=== PATIENT | female | born 1995 | race Caucasian/White ===

== ENCOUNTER 2019-09-05 11:49 | Emergency (ER) | payer SELFPAY ==
[2019-09-05 11:58] VITALS: BP 123/86; PULSE 91; RESP 20; TEMP 37.2; O2SAT 97; BMI 21.4
--- NOTE | 2019-09-05 12:04 | W.ED.HEATRA ---
Documented by User: RYANN Morales 09/05/19 13:48 HPI - Head Injury General: Chief complaint: Head Injury Stated complaint: HEAD LAC Time Seen by Provider: 09/05/19 12:04 History of Present Illness: HPI Narrative: Patient is a 24-year-old female comes in with head injury. Patient states she was standing on her bed and the ceiling fan going full speed hit her head. She denies any loss of consciousness but she did have bleeding. She does state she felt nauseous right afterwards and felt a little dizzy and lightheaded. Currently in the ED, she does not have any nausea. She started as well as mild headache. Denies any fever, chills, vomiting, abdominal pain, hematuria, dysuria, diarrhea, constipation, chest pain, shortness of breath, numbness or tingling to extremities, weakness to extremities. Review of Systems General: Reports: 10 or more systems reviewed and unremarkable except in HPI and below PFSH ED PFSH: Social History Smoking and tobacco status: never smoked Female Reproductive History: Date of last menstrual period: 09/05/19 Physical Exam Narrative: EXAM NARRATIVE: Patient is a 24-year-old female in no acute distress or respiratory distress. She has some mild head pain due to laceration. Const: COMMON NORMALS: oriented x3 HENMT: COMMON NORMALS: normocephalic HEAD & SCALP: normocephalic, abrasion (small) and laceration (0.5cm superficial laceration on R. Parietal. Bleeding stopped.) MOUTH: oral and palatal mucosa normal THROAT: posterior oropharynx normal and uvula midline Neck/C-Spine: COMMON NORMALS: supple GENERAL: Yes normal visual inspection Resp: COMMON NORMALS: normal respiratory effort, no retractions, no use of accessory muscles and clear to auscultation bilaterally AUSCULTATION: clear to auscultation bilaterally Cardio: COMMON NORMALS: regular rate, regular rhythm, S1 normal heart sound, S2 normal heart sound, no gallops, no clicks, no murmurs and peripheral pulses 2+ throughout RATE: regular rate RHYTHM: regular rhythm HEART SOUNDS: S1 normal and S2 normal PERIPHERAL PULSES: pulses 2+ throughout GI: COMMON NORMALS: normal to inspection, nondistended, normoactive bowel sounds, soft to palpation, non-tender and no masses PALPATION: Yes soft : COMMON NORMALS: Yes no CVA tenderness BLADDER/KIDNEY EXAM: Yes no CVA tenderness Back/Pelvis: COMMON NORMALS: no CVA tenderness Extremity: COMMON NORMALS: normal to inspection Neuro: COMMON NORMALS: oriented x3, CN's II-XII intact bilaterally, moves all extremities, no focal motor deficits and no sensory deficits noted SENSORY EXAM: Yes extremities (intact) MOTOR EXAM: strength 5/5 throughout Skin: COMMON NORMALS: no rashes or lesions noted GENERAL SKIN EXAM: no rashes or lesions noted Procedures Laceration Laceration 1: Site: scalp Side (If applicable): right Size (cm): 0.5 Description: linear and clean Depth: simple, single layer (small and superficial) Pre-repair: irrigated extensively (Normal saline) Size (cm): other (Dermabond) Course Vital Signs: Vital signs: Vital Signs Temperature 98.9 F 09/05/19 11:58 Pulse Rate 79 09/05/19 13:34 Respiratory Rate 18 09/05/19 13:34 Blood Pressure 101/66 09/05/19 13:34 Pulse Oximetry 99 09/05/19 13:34 MDM - Head Injury Imaging Data^: CT Head: Attestation: I personally reviewed and interpreted this imaging study as follows: Radiologist's impression: [address] [address] [address] Scan Report Signed Patient: Diana Kelley Unit #: [id number] : 1995 Age/Sex: 24 / F ADM Date: 09/05/19 Loc: ER Room/Bed: Attending Dr: Ordering Provider/Ordering MD: Franco Warner Date of Service: 09/05/19 Procedure(s): CT head wo con* [id number] Accession Number(s): [id number] Report Number: [id number] WS: [id number] CT scan of the head, 09/05/2019 Clinical Data: head injury Comparison: CT head, 09/14/2010. DLP: 740.[address] scans at [facility] use at least one of these dose optimization techniques: automated exposure control; mA and/or kV adjustment per patient size (includes targeted exams where dose is matched to clinical indication); or iterative reconstruction. Findings: The ventricular system is normal without shift. No recent infarct or hemorrhage is seen. There are no abnormal intracerebral masses. The cerebellum and brainstem are not remarkable. Bony windows of the skull and skull base show no fractures or erosions. The mastoid air cells, internal auditory canals, sella turcica, intraorbital contents, and paranasal sinuses are u nremarkable. CT/CT head wo con* [id number] Impression: Negative CT scan of the head Dictated By: Ana Padilla MD Signed By: Ana Padilla MD Signed Date/Time: 09/05/19 1318 DD/ 15 Discharge Plan Discharge Patient Disposition: Home, Self-Care Clinical Impression: Laceration, Minor head trauma Condition: Stable Prescriptions: No Action No Known Home Medications RF: 0 Discharge Orders: Discharge Order (Routine); Ordered 09/05/19 Ordered By: Franco Warner Referrals: Maureen Link MD [Primary Care Provider] - Darin Lane MD [Family Provider] - Discharge Diet: Regular Discharge Activity: Resume usual activity Patient Instructions: Laceration (ED) Activity Restrictions/Additional Instructions: Do not wash hair for 24 hours to allow for head wound to close up. After 24 hours she can wash hair. Take Tylenol or ibuprofen for headache. He complains ice on her head as well as needed for any soreness or swelling. Follow-up with your PCP in 7 days for reevaluation. Discharge Date/Time: 09/05/19 13:34 Coding Level of Care Code ED Wire Twisting Machine Operator for Chg Fwd Exam Problem Focused Documented by User: Victoriano Vivas DO 09/06/19 13:36 HPI - Head Injury General: Chief complaint: Head Injury Stated complaint: HEAD LAC Time Seen by Provider: 09/05/19 12:04 PFSH ED PFSH: Social History Smoking and tobacco status: never smoked Course ED course: Patient seen in conjunction with midlevel chart reviewed agree with assessment plan and disposition Vital Signs: Vital signs: Vital Signs Temperature 98.9 F 09/05/19 11:58 Pulse Rate 79 09/05/19 13:34 Respiratory Rate 18 09/05/19 13:34 Blood Pressure 101/66 09/05/19 13:34 Pulse Oximetry 99 09/05/19 13:34 Discharge Plan Discharge Patient Disposition: Home, Self-Care Clinical Impression: Laceration, Minor head trauma Condition: Stable Prescriptions: No Action No Known Home Medications RF: 0 Discharge Orders: Discharge Order (Routine); Ordered 09/05/19 Ordered By: Franco Warner Referrals: Maureen Link MD [Primary Care Provider] - Darin Lane MD [Family Provider] - Discharge Diet: Regular Discharge Activity: Resume usual activity Patient Instructions: Laceration (ED) Activity Restrictions/Additional Instructions: Do not wash hair for 24 hours to allow for head wound to close up. After 24 hours she can wash hair. Take Tylenol or ibuprofen for headache. He complains ice on her head as well as needed for any soreness or swelling. Follow-up with your PCP in 7 days for reevaluation. Discharge Date/Time: 09/05/19 13:34 Coding Level of Care Code ED Wire Twisting Machine Operator for Kevin Parra Exam Problem Focused
--- NOTE | 2019-09-05 12:20 | CT_ITS ---
WS: [id number] CT scan of the head, 09/05/2019 Clinical Data: head injury Comparison: CT head, 09/14/2010. DLP: 740.[address] scans at [facility] use at least one of these dose optimization techniques: automat ed exposure control; mA and/or kV adjustment per patient size (includes targeted exams where dose is matched to clinical indication); or iterative reconstruction. Findings: The ventricular system is normal without shift. No recent infarct or hemorrhage is seen. There are no abnormal intracerebral masses. The cerebellum and brainstem are not remarkable. Bony windows of the skull and skull base show no fractures or erosions. The mastoid air cells, advisory internship al auditory canals, sella turcica, intraorbital contents, and paranasal sinuses are unremarkable. CT/CT head wo con* [id number] Impression: Negative CT scan of the head
[2019-09-05] MEDS: acetaminophen 500 mg Tablet PO (12:26)
[2019-09-05 13:34] VITALS: BP 101/66; PULSE 79; RESP 18; O2SAT 99
== END 2019-09-05 13:34 | disposition home or self-care (01) ==
PROVIDERS: Emergency Provider Physician Assistant; Family Provider Family Medicine; PCP Pediatrics Adolescent Medicine
DX: S01.01XA Laceration without foreign body of scalp, initial encounter (principal); W22.8XXA Striking against or struck by other objects, initial encounter; Y92.003 Bedroom of unspecified non-institutional (private) residence as the place of occurrence of the external cause
CPT/HCPCS: 70450; 99281; 99283; A9270

== ENCOUNTER 2019-09-19 08:20 | Emergency (ER) | payer SELFPAY ==
[2019-09-19 08:26] VITALS: BP 131/76; PULSE 82; RESP 16; TEMP 36.6; O2SAT 97; BMI 21.4
--- NOTE | 2019-09-19 08:27 | ED_ITS ---
HPI - URI/Sore Throat General: Chief Complaint: General Medical Stated Complaint: H/A CONGESTION Time Seen by Provider: 09/19/19 08:27 Source: patient Mode of arrival: ambulatory Limitations: no limitations History of Present Illness: HPI Narrative: Patient comes in today with complaints of sinus pain and pressure. Patient reports symptoms since the . Patient appears mildly unwell. Patient appears in no acute distress. Patient appears in mild pain. MD elicited complaint: nasal congestion and sinus pain Associated symptoms: Reports ear or mastoid pain and nasal congestion Review of Systems General: Reports: 10 or more systems reviewed and unremarkable except in HPI and below ENMT: Reports: ear pain and nasal congestion PFSH ED PFSH: Social History Smoking and tobacco status: never smoked Female Reproductive History: Date of last menstrual period: 09/05/19 Physical Exam Const: COMMON NORMALS: no apparent distress and oriented x3 GENERAL APPEARANCE: cooperative HENMT: COMMON NORMALS: normocephalic, external ears normal, EAC's normal and external nose normal HEAD & SCALP: normal to inspection and normocephalic FACE & SINUS: facial tenderness (maxillary sinus) NOSE: external nose normal GENERAL EAR: hearing not grossly impaired EXTERNAL EAR: Yes external ears normal EXTERNAL AUDITORY CANAL: EAC's normal TYMPANIC MEMBRANE: TM abnormal TM laterality: right Details: erythematous MOUTH: oral and palatal mucosa normal THROAT: posterior oropharynx abnormal erythema Eye: COMMON NORMALS: PERRL and EOMs intact bilaterally PUPIL: Yes PERRL Neck/C-Spine: COMMON NORMALS: full ROM and no lymphadenopathy Lymph: LYMPHATIC: no lymphedema noted Chest: COMMONS NORMALS: inspection of chest normal and palpation of chest n ormal Resp: COMMON NORMALS: normal respiratory effort and clear to auscultation bilaterally AUSCULTATION: clear to auscultation bilaterally Cardio: COMMON NORMALS: regular rate and regular rhythm RATE: regular rate RHYTHM: regular rhythm GI: COMMON NORMALS: normal to inspection, nondistended, normoactive bowel sounds and non-tender : COMMON NORMALS: Yes no CVA tenderness BLADDER/KIDNEY EXAM: Yes no CVA tenderness Back/Pelvis: COMMON NORMALS: no CVA tenderness and thoracic and lumbar spine normal to inspection Extremity: COMMON NORMALS: normal to inspection GENERAL: No edema Neuro: COMMON NORMALS: oriented x3, moves all extremities and no focal motor deficits Psych: COMMON NORMALS: mental status grossly normal and cooperative Skin: COMMON NORMALS: no rashes or lesions noted GENERAL SKIN EXAM: no rashes or lesions noted Course Vital Signs: Vital signs: Vital Signs Temperature 97.9 F 09/19/19 08:26 Pulse Rate 82 09/19/19 08:26 Respiratory Rate 16 09/19/19 08:26 Blood Pressure 131/76 09/19/19 08:26 Pulse Oximetry 97 09/19/19 08:26 MDM - URI/Sore Throat MDM Narrative: Medical decision making narrative: Patient comes in today with complaints of sinus pain and pressure for 2 weeks. On exam patient has some maxillary sinus tenderness. Left tympanic membrane is erythematous and dull. Skin is warm and dry color is pink. Abdomen soft nontender. Lungs are clear to auscultation. Differential diagnosis includes otitis media, sinusitis, rhinosinusitis, pharyngitis, influenza. Reviewed exam with patient recommended treatment for rhinosinusitis. Encourage fluids rest and follow-up with primary care. Patient reports understanding and agreed to plan. Discharge Plan Discharge Patient Disposition: Home, Self-Care Clinical Impression: Acute rhinosinusitis Condition: Stable Prescriptions: New amoxicillin 500 mg capsule 500 mg PO Q8H Qty: 21 RF: 0 fluticasone propionate 50 mcg/actuation spray,suspension 1 spray INTRANASAL BID Qty: 9.9 RF: 0 Mucinex D 60-600 mg tablet extended release 12 hr 1 tab PO Q12H PRN (Reason: sinus symptoms) Qty: 14 RF: 0 No Action Emergen-C 1,000 mg Powder Effervescent In Packet 1,000 mg PO DAILY RF: 0 Discharge Orders: Discharge Order (Routine); Ordered 09/19/19 Ordered By: Bebo Bahena Referrals: Maureen Link MD [Primary Care Provider] - Darin Lane MD [Family Provider] - Discharge Diet: Usual diet Discharge Activity: Increase activity as tolerated Patient Instructions: Acute Bacterial Rhinosinusitis (ED) Activity Restrictions/Additional Instructions: Drink plenty of fluids Antibiotics as directed Medications as directed Follow-up with primary care as needed Coding Level of Care Code ED Veterinary Surgery Technician for Chg Fwd Exam Comprehensive
== END 2019-09-19 08:47 | disposition home or self-care (01) ==
PROVIDERS: Emergency Provider Nurse Practitioner Family; Family Provider Family Medicine; PCP Pediatrics Adolescent Medicine
DX: J01.90 Acute sinusitis, unspecified (principal)
CPT/HCPCS: 99281; 99282

== ENCOUNTER 2019-11-30 13:22 | Emergency (ER) | payer OTHER, SELFPAY ==
[2019-11-30 13:28] VITALS: BP 116/77; PULSE 96; RESP 16; TEMP 36.5; O2SAT 97; BMI 21.4
--- NOTE | 2019-11-30 13:34 | XR_ITS ---
WS: [id number] XR foot RT min 3V* [id number] REASON FOR EXAM: crush injury FINDINGS: The phalanges, metatarsals, tarsals all appear to be normal. No definite fractures are seen . The calcaneus show no definite fractures and the plantar surface was normal. XR/XR foot RT min 3V* [id number] IMPRESSION: Negative right foot for fractures.
--- NOTE | 2019-11-30 13:43 | ED_ITS ---
HPI - Extremity Problem General: Chief complaint: Extremity Injury, Lower Stated complaint: foot pain Time Seen by Provider: 11/30/19 13:34 History of Present Illness: HPI Narrative: Patient shall ran over her right ankle with a skate yesterday. Patient complains of pain to the lateral aspect of the right ankle. MD Complaint: joint paint Onset (ago): day(s) (1) Pain Consistency: constant Location: right, lower extremity and other (Ankle) Radiation: distal Relieving factors: nothing Exacerbating factors: range of motion and weight bearing Associated symptoms: Reports no associated symptoms Review of Systems Musc: Reports: joint pain and limited range of motion PFSH ED PFSH: Social History Smoking and tobacco status: current some day smoker Female Reproductive History: Date of last menstrual period: 09/05/19 Physical Exam Extremity: RIGHT LOWER EXTREMITY: Yes ankle joint (No grossly apparent swelling, bruising) Course Vital Signs: Vital signs: Vital Signs Temperature 97.7 F 11/30/19 13:28 Pulse Rate 96 11/30/19 13:28 Respiratory Rate 16 11/30/19 13:28 Blood Pressure 116/77 11/30/19 13:28 Pulse Oximetry 97 11/30/19 13:28 Discharge Plan Discharge Patient Disposition: Home, Self-Care Clinical Impression: Ankle sprain and strain Condition: Stable Prescriptions: New Tylenol-Codeine #3 300-30 mg tablet 1 tab PO Q6H PRN (Reason: pain) Qty: 10 RF: 0 No Action amoxicillin 500 mg capsule 500 mg PO Q8H Qty: 21 RF: 0 Emergen-C 1,000 mg Powder Effervescent In Packet 1,000 mg PO DAILY RF: 0 fluticasone propionate 50 mcg/actuation spray,suspension 1 spray INTRANASAL BID Qty: 9.9 RF: 0 Mucinex D 60-600 mg tablet extended release 12 hr 1 tab PO Q12H PRN (Reason: sinus symptoms) Qty: 14 RF: 0 Discharge Orders: Discharge Order (Routine); Ordered 11/30/19 Ordered By: Shadi Cm Referrals: Darin Lane MD [Primary Care Provider] - Coding Level of Care Code ED Nut Sorter Operator for Chg Fwd Exam Problem Focused
--- NOTE | 2019-11-30 13:55 | XR_ITS ---
WS: [id number] XR ankle RT 2V [id number] REASON FOR EXAM: crush injury FINDINGS: 2 views of the right ankle show normal ankle mortise. No fractures of the talus, tibia, are fibula. In the lateral projection the posterior shelf of the tibia is intact. XR/XR ankle RT 2V [id number] IMPRESSION: Negative right ankle for fractures.
[2019-11-30 14:56] VITALS: RESP 16
== END 2019-11-30 14:58 | disposition home or self-care (01) ==
PROVIDERS: Emergency Provider Family Medicine; PCP Family Medicine
DX: S93.401A Sprain of unspecified ligament of right ankle, initial encounter (principal); S96.911A Strain of unspecified muscle and tendon at ankle and foot level, right foot, initial encounter; W22.8XXA Striking against or struck by other objects, initial encounter; F17.210 Nicotine dependence, cigarettes, uncomplicated
CPT/HCPCS: 12345; 73600; 73630; 99281; 99283

== ENCOUNTER 2020-01-21 12:45 | Emergency (ER) | payer OTHER, SELFPAY ==
[2020-01-21 12:58] VITALS: BP 121/81; PULSE 111; RESP 18; TEMP 36.8; O2SAT 97; BMI 22.1
--- NOTE | 2020-01-21 13:03 | ED_ITS ---
HPI - Female Genitourinary General: Chief complaint: Urogenital-Female Stated complaint: abd pain, burning with urination Time Seen by Provider: 01/21/20 12:58 Source: patient Mode of arrival: ambulatory Limitations: no limitations History of Present Illness: HPI Narrative: Patient is a 24-year-old female who presents to ED today with complaint of dysuria, urinary urgency and frequency over the past few days. 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 States she does not have pain at any other time of the day and can otherwise eat normally. No flank pain. Patient is not having any nausea, vomiting, diarrhea. She denies vaginal discharge or vaginal odor or concern for STDs. MD elicited complaint: dysuria and UTI Onset (ago): day(s) Consistency: intermittent Vaginal discharge: none Vaginal bleeding: none Urinary symptoms: Difficulty Urinating, Dysuria, Frequency and Urgency Exacerbating factors: urination Relieving factors: none Associated symptoms: Reports abdominal pain; Deny nausea or vaginal discharge Treatment prior to arrival: none Patient : No Date of Last Menstrual Period: 09/05/19 Review of Systems Const: Denies: fever(s) or chills GI: Reports: abdominal pain; Denies: nausea, vomiting, hematemesis, coffee ground emesis, heartburn, early satiety, diarrhea, constipation, change in bowel habits, pain on defecation, hematochezia or white/light colored stool : Reports: dysuria, urinary frequency and urinary urgency; Denies: flank pain, urinary incontinence, hematuria, genital lesions, genital pruritis, vaginal odor, vaginal bleeding or vaginal discharge Musc: Denies: back pain Skin/Breast: Denies: rash or new lesions PFS ED PFSH: Social History Smoking and tobacco status: current some day smoker Female Reproductive History: Date of last menstrual period: 09/05/19 Physical Exam Const: COMMON NORMALS: no acute distress, average body habitus, patient oriented x3, no limitations, healthy appearing, alert and well nourished Resp: COMMON NORMALS: normal respiratory effort and clear to auscultation bilaterally AUSCULTATION: clear to auscultation bilaterally Cardio: COMMON NORMALS: regular rate and regular rhythm RATE: regular rate RHYTHM: regular rhythm GI: COMMON NORMALS: Normal to inspection, nondistended, normoactive bowel sounds present, Soft to palpation, No hepatosplenomegaly present and no masses PALPATION: Yes Soft to palpation, Yes Tenderness to palpation present (GI) (mild diffusely-non surgical abdomen ) and Yes No hepatosplenomegaly present : COMMON NORMALS: Yes no CVA tenderness BLADDER/KIDNEY EXAM: Yes no CVA tenderness Back/Pelvis: COMMON NORMALS: no CVA tenderness Neuro: COMMON NORMALS: patient oriented x3 SENSORIUM/ORIENTATION: Yes alert Course Vital Signs: Vital signs: Vital Signs Temperature 98.3 F 01/21/20 12:58 Pulse Rate 106 H 01/21/20 13:58 Respiratory Rate 16 01/21/20 13:58 Blood Pressure 104/76 01/21/20 13:58 Pulse Oximetry 98 01/21/20 13:58 MDM - Female Lab Data: Labs: Lab Results 01/21/20 01/21/20 01/21/20 Range/Units 13:00 13:00 13:45 WBC 6.2 (4.0-10.0) 10^3/ uL RBC 5.01 (4.1-5.3) 10^6/u L Hgb 15.4 H (11.5-15.3) g/dL Hct 47.7 H (37.0-47.0) % MCV 95.2 (81-99) fL MCH 30.7 (28.0-34.0) pg MCHC 32.3 (30.0-36.0) g/dL RDW 11.9 L (12.1-15.1) % Plt Count 167 (130-400) 10^3/c mm MPV 12.9 H (7.4-10.4) fL Neut % (Auto) 74.0 % Lymph % (Auto) 19.6 % [place] % (Auto) 4.8 % Eos % (Auto) 0.8 % Baso % (Auto) 0.3 % Neut # (Auto) 4.6 (1.8-7.7) 10^3/u L Lymph # (Auto) 1.2 (0.8-4.8) 10^3/u L [place] # (Auto) 0.3 (0.2-0.9) 10^3/u L Eos # (Auto) 0.1 (0.0-0.8) 10^3/u L Baso # (Auto) 0.0 (0.0-0.1) 10^3/u L Nucleated RBC % (a uto) 0 % Nucleated RBCs # 0.0 /100WBC Sodium (136-145) mmol/L Potassium (3.5-5.1) mmol/L Chloride (98-107) mmol/L Carbon Dioxide (22-29) mmol/L Anion Gap (5-19) BUN (6-20) mg/dL Creatinine (0.5-0.9) mg/dL GFR Calculation (90-130) mL/min Glucose (65-115) mg/dL Calculated Osmolal ity (285-295) mOsm/k g Calcium (8.5-10.5) mg/dL Total Bilirubin (0.15-1.2) mg/dL AST (0-32) U/L ALT (0-33) U/L Alkaline Phosphata se (35-105) IU/L Total Protein (6.6-8.7) g/dL Albumin (3.5-5.2) g/dL Globulin (1.3-4.6) g/dL Lipase (13-60) U/L Urine Color Yellow (Yellow) Urine Appearance Sl cloudy A (CLEAR) Urine pH 5 (5-7) Ur Specific Gravit y 1.025 (1.005-1.030) Urine Protein Neg (Negative) Urine Glucose (UA) Norm (Normal) Urine Ketones Negative (Negative) Urine Blood Neg (Negative) Urine Nitrate Negative (Negative) Urine Bilirubin 1+ H (NEGATIVE) Urine Urobilinogen 1 H (Negative) mg/dL Ur Leukocyte Mary Ann ase 2+ H (Negative) Urine RBC None (0-2) /hpf Urine WBC 25-40 H (0-5) /hpf Ur Squamous Epith Cells 10-15 H (0-5) Amorphous Sediment Not Reportable Urine Bacteria 2+ H (NONE) Urine Mucus 2+ Urine HCG, Qual Negative (Negative) 01/21/20 Range/Units 13:45 WBC (4.0-10.0) 10^3/ uL RBC (4.1-5.3) 10^6/u L Hgb (11.5-15.3) g/dL Hct (37.0-47.0) % MCV (81-99) fL MCH (28.0-34.0) pg MCHC (30.0-36.0) g/dL RDW (12.1-15.1) % Plt Count (130-400) 10^3/c mm MPV (7.4-10.4) fL Neut % (Auto) % Lymph % (Auto) % [place] % (Auto) % Eos % (Auto) % Baso % (Auto) % Neut # (Auto) (1.8-7.7) 10^3/u L Lymph # (Auto) (0.8-4.8) 10^3/u L [place] # (Auto) (0.2-0.9) 10^3/u L Eos # (Auto) (0.0-0.8) 10^3/u L Baso # (Auto) (0.0-0.1) 10^3/u L Nucleated RBC % (a uto) % Nucleated RBCs # /100WBC Sodium 140 (136-145) mmol/L Potassium 4.3 (3.5-5.1) mmol/L Chloride 102 (98-107) mmol/L Carbon Dioxide 24 (22-29) mmol/L Anion Gap 18.3 (5-19) BUN 22 H (6-20) mg/dL Creatinine 0.8 (0.5-0.9) mg/dL GFR Calculation 88.1 L (90-130) mL/min Glucose 82 (65-115) mg/dL Calculated Osmolal ity 286 (285-295) mOsm/k g Calcium 10.4 (8.5-10.5) mg/dL Total Bilirubin 0.6 (0.15-1.2) mg/dL AST 18 (0-32) U/L ALT 13 (0-33) U/L Alkaline Phosphata se 72 (35-105) IU/L Total Protein 7.8 (6.6-8.7) g/dL Albumin 5.2 (3.5-5.2) g/dL Globulin 2.6 (1.3-4.6) g/dL Lipase 39 (13-60) U/L Urine Color (Yellow) Urine Appearance (CLEAR) Urine pH (5-7) Ur Specific Gravit y (1.005-1.030) Urine Protein (Negative) Urine Glucose (UA) (Normal) Urine Ketones (Negative) Urine Blood (Negative) Urine Nitrate (Negative) Urine Bilirubin (NEGATIVE) Urine Urobilinogen (Negative) mg/dL Ur Leukocyte Mary Ann ase (Negative) Urine RBC (0-2) /hpf Urine WBC (0-5) /hpf Ur Squamous Epith Cells (0-5) Amorphous Sediment Urine Bacteria (NONE) Urine Mucus Urine HCG, Qual (Negative) Discharge Plan Discharge Patient Disposition: Home, Self-Care Clinical Impression: Acute cystitis without hematuria Condition: Stable Prescriptions: New sulfamethoxazole-trimethoprim [Bactrim DS] 800-160 mg tablet 1 tab PO BID 7 Days Qty: 14 RF: 0 No Action Probiotic 3 billion cell Capsule 3,000 mmu cells PO DAILY RF: 0 Discharge Orders: Discharge Order (Routine); Ordered 01/21/20 Ordered By: Mary Hernandez Referrals: Darin Lane MD [Primary Care Provider] - Patient Instructions: Urinary Tract Infection in Women (ED) Activity Restrictions/Additional Instructions: Please follow-up with your primary care provider in 3 to 5 days if symptoms do not seem to be improving. You may return to the emergency department for worsening pain, fevers greater than 100.4, vomiting or inability to hold down your antibiotics, or any other concerns you may have. Coding Level of Care Code ED Machine Grainer for Kevin Parra
[2020-01-21 13:32] LABS: Specific Gravity, Urine 1.025 (1.005-1.030); Urine Color Yellow (Yellow); pH Urine 5 (5-7)
[2020-01-21 13:33] LABS: Add Urine Microscopic? YES; Bilirubin Urine 1+ (NEGATIVE); Blood Urine Neg (Negative); Glucose Urine UA Norm (Normal); Ketones Urine Negative (Negative); Leukocyte Esterase Urine 2+ (Negative); Nitrate Urine Negative (Negative); Protein Urine Neg (Negative); Urobilinogen Urine 1 mg/dL (Negative)
[2020-01-21 13:34] LABS: Bacteria Urine 2+; Mucus Urine 2+; WBC Urine 25-40 /hpf (0-5)
[2020-01-21 13:35] LABS: Add Urine Culture? No
[2020-01-21 13:58] VITALS: BP 104/76; PULSE 106; RESP 16; O2SAT 98
[2020-01-21 14:06] LABS: Basophils % 0.3 %; Eosinophils # 0.1 10^3/uL (0.0-0.8); Eosinophils % 0.8 %; Hematocrit 47.7 % (37.0-47.0); Hemoglobin 15.4 g/dL (11.5-15.3); Lymphocytes # 1.2 10^3/uL (0.8-4.8); Lymphocytes % 19.6 %; Mean Corpuscular HGB Conc 32.3 g/dL (30.0-36.0); Mean Corpuscular Hemoglobin 30.7 pg (28.0-34.0); Mean Corpuscular Volume 95.2 fL (81-99); Mean Platelet Volume 12.9 fL (7.4-10.4); Monocytes # 0.3 10^3/uL (0.2-0.9); Monocytes % 4.8 %; Neutrophils # 4.6 10^3/uL (1.8-7.7); Nucleated Red Blood Cells % 0 %; Platelet Count 167 10^3/cmm (130-400); Red Blood Count 5.01 10^6/uL (4.1-5.3); Red Cell Distribution Width 11.9 % (12.1-15.1); White Blood Count 6.2 10^3/uL (4.0-10.0)
[2020-01-21 14:14] LABS: Alanine Aminotransferase 13 U/L (0-33); Albumin Level 5.2 g/dL (3.5-5.2); Alkaline Phosphatase 72 IU/L (35-105); Anion Gap 18.3 (5-19); Aspartate Amino Transferase 18 U/L (0-32); Blood Urea Nitrogen 22 mg/dL (6-20); Calcium 10.4 mg/dL (8.5-10.5); Carbon Dioxide 24 mmol/L (22-29); Chloride 102 mmol/L (98-107); Globulin 2.6 g/dL (1.3-4.6); Glomerular Filtration Rate 88.1 mL/min (90-130); Glucose 82 mg/dL (65-115); Lipase 39 U/L (13-60); Osmolality Calculated 286 mOsm/kg (285-295); Potassium 4.3 mmol/L (3.5-5.1); Sodium 140 mmol/L (136-145); Total Bilirubin 0.6 mg/dL (0.15-1.2); Total Protein 7.8 g/dL (6.6-8.7)
[2020-01-21 14:20] LABS: Slide Review Slide Review Perform
[2020-01-21 14:48] VITALS: BP 120/82; PULSE 92; RESP 18; O2SAT 99
== END 2020-01-21 14:48 | disposition home or self-care (01) ==
PROVIDERS: Emergency Provider Physician Assistant; PCP Family Medicine
DX: N30.00 Acute cystitis without hematuria (principal); F17.210 Nicotine dependence, cigarettes, uncomplicated
CPT/HCPCS: 12345; 36415; 80053; 81001; 81025; 83690; 85025; 99282

== ENCOUNTER 2020-01-26 13:59 | Emergency (ER) | payer OTHER, SELFPAY ==
[2020-01-26 14:11] VITALS: BP 114/70; PULSE 110; RESP 18; TEMP 36.7; O2SAT 96; BMI 21.9
--- NOTE | 2020-01-26 14:34 | XRR_ITS ---
PROCEDURE INFORMATION: Exam: XR Chest, 2 Views Exam date and time: 01/26/2020 3:42 PM Age: 24 years old Clinical indication: Cough TECHNIQUE: Imaging protocol: XR of the chest Views: 2 views. COMPARISON: CR Chest 1 [place] [id number] 04/25/2019 3:07 PM FINDINGS: Lungs: Unremarkable. No consolidation. Pleural space: Unremarkable. No pleural effusion. No pneumothorax. Heart/Mediastinum: Unremarkable. No cardiomegaly. Bones/joints: Unremarkable. XR/XR chest 2V* [id number] IMPRESSION: No acute findings.
--- NOTE | 2020-01-26 14:47 | W.ED.URI ---
HPI - URI/Sore Throat General: Chief Complaint: Upper Respiratory Infection Stated Complaint: sinus problems Time Seen by Provider: 01/26/20 14:47 History of Present Illness: HPI Narrative: 24-year-old female comes in complaining of cough and cold headache that started yesterday. No significant cough. She had a low-grade fever she not really tried any [id number] medications for it at all. She is on Bactrim for a UTI. She got some fullness in her particular her right ear with no drainage. She has not been around anyone that she is known to have been COVID positive, no change in taste. MD elicited complaint: fever Pertinent past history: other (Recently seen for UTI and on Bactrim) Onset (ago): day(s) Consistency: constant Severity: mild Description of mucous: clear and watery Able to tolerate fluids by mouth: Yes Exacerbating factors: nothing Relieving factors: nothing Associated symptoms: Reports no associated symptoms, congestion and nasal congestion; Deny abdominal pain, chills, chest pain, cough, diarrhea, fever(s), nausea or vomiting Treatments prior to arrival: none Review of Systems Const: Denies: fever(s), chills, body aches, change in appetite, fatigue or malaise ENMT: Reports: nasal congestion Card: Denies: chest pain, edema, dyspnea on exertion or orthopnea Resp: Denies: dyspnea, productive cough or non-productive cough GI: Denies: abdominal pain, nausea, vomiting, hematemesis, coffee ground emesis, diarrhea, constipation, bloating, hematochezia or melena : Denies: flank pain, difficulty voiding, dysuria, urinary frequency or urinary urgency Skin/Breast: Denies: rash or pruritus PFSH ED PFSH: Medical History (Updated 01/26/20 @ 16:12 by Victoriano Vivas DO) No significant past medical history Surgical History (Updated 01/26/20 @ 16:12 by Victoriano Vivas DO) H/O oral surgery Social History Smoking and tobacco status: current some day smoker Female Reproductive History: Date of last menstrual period: 09/05/19 Physical Exam Const: COMMON NORMALS: no acute distress GENERAL APPEARANCE: cooperative and comfortable ORIENTATION/CONSCIOUSNESS: Yes awake, Yes oriented to person, Yes oriented to place and Yes oriented to time HENMT: COMMON NORMALS: normocephalic, atraumatic, hearing grossly normal bilaterally, external ears normal, EAC's normal, Normal nasal mucous membranes and turbinates present, moist oral mucous membranes and oropharynx normal HEAD & SCALP: normocephalic and atraumatic NOSE: Normal nasal mucous membranes and turbinates present EXTERNAL EAR: Yes external ears normal EXTERNAL AUDITORY CANAL: EAC's normal OTHER: Moderate amount of serous fluid behind the right TM with no evidence of infection or swelling no purulent fluid Eye: COMMON NORMALS: Equal, round and reactive pupils present, EOMs intact bilaterally, conjunctivae normal and no scleral icterus CONJUNCTIVA: Yes conjunctivae normal PUPIL: Yes Equal, round and reactive pupils present Neck/C-Spine: COMMON NORMALS: full ROM, no lymphadenopathy, supple and no JVD Lymph: LYMPHATIC: no lymphadenopathy noted and no lymphedema noted Resp: COMMON NORMALS: normal respiratory effort, No retractions, No use of accessory muscles and clear to auscultation bilaterally AUSCULTATION: clear to auscultation bilaterally Cardio: COMMON NORMALS: no JVD, regular rate, regular rhythm and No murmurs present (Cardio) RATE: regular rate RHYTHM: regular rhythm GI: COMMON NORMALS: Soft to palpation and No hepatosplenomegaly present AUSCULTATION: Yes normoactive bowel sounds PALPATION: Yes Soft to palpation, No Tenderness to palpation present (GI), No Guarding due to palpation present (GI) and Yes No hepatosplenomegaly present Extremity: COMMON NORMALS: normal to inspection, capillary refill normal, no clubbing, cyanosis or edema, no calf tenderness and no pedal edema Neuro: SENSORIUM/ORIENTATION: Yes oriented to person, Yes oriented to place and Yes oriented to time Skin: COMMON NORMALS: no rashes or lesions noted GENERAL SKIN EXAM: no rashes or lesions noted Course Vital Signs: Vital signs: Vital Signs Temperature 98.1 F 01/26/20 14:11 Pulse Rate 75 01/26/20 15:55 Respiratory Rate 16 01/26/20 15:55 Blood Pressure 114/70 01/26/20 14:11 Pulse Oximetry 98 01/26/20 15:55 MDM - URI/Sore Throat MDM Narrative: Medical decision making narrative: Supportive care pseudoephedrine as needed other [id number]-kkn-[id number]'s medicines as needed discussed results the patient most likely viral upper respiratory infection continue previously prescribed Bactrim for the bladder infection Lab Data: Attestation: I reviewed the patient's lab results. Labs: Lab Results 01/26/20 Range/Units 15:10 Group A Strep Rapi d Negative (Negative) Discharge Plan Discharge Patient Disposition: Home, Self-Care Clinical Impression: Upper respiratory infection Condition: Stable Prescriptions: New pseudoephedrine HCl 30 mg tablet 30 mg PO Q6H PRN (Reason: nasal congestion) Qty: 30 RF: 0 No Action sulfamethoxazole-trimethoprim [Bactrim DS] 800-160 mg tablet 1 tab PO BID 7 Days Qty: 14 RF: 0 Discharge Orders: Discharge Order (Routine); Ordered 01/26/20 Ordered By: Victoriano iVvas Referrals: Darin Lane MD [Primary Care Provider] - Discharge Diet: Advance as tolerated Discharge Activity: Resume usual activity Discharge Date/Time: 01/26/20 15:55 Coding Level of Care Code ED Neurosurgical Physician Assistant for Kevin Parra
[2020-01-26 15:28] LABS: Rapid Strep A Test Negative (Negative)
[2020-01-26 15:55] VITALS: PULSE 75; RESP 16; O2SAT 98
== END 2020-01-26 15:55 | disposition home or self-care (01) ==
PROVIDERS: Emergency Provider Family Medicine; PCP Family Medicine
DX: J06.9 Acute upper respiratory infection, unspecified (principal); F17.210 Nicotine dependence, cigarettes, uncomplicated
CPT/HCPCS: 12345; 71046; 87081; 87880; 99283

== ENCOUNTER 2020-04-10 19:20 | Emergency (ER) | payer OTHER, SELFPAY ==
[2020-04-10 19:23] VITALS: BP 132/86; PULSE 100; RESP 16; TEMP 36.9; O2SAT 98; BMI 22.1
--- NOTE | 2020-04-10 19:34 | W.ED.CHESTPA ---
HPI - Chest Pain General: Chief Complaint: Chest Pain Stated Complaint: cp after taking claritin Time Seen by Provider: 04/10/20 19:22 Source: patient Mode of arrival: ambulatory Limitations: no limitations History of Present Illness: HPI narrative: Patient is a 24-year-old female who presents to ED today stating she believes she might be having an allergic reaction to a Claritin tablet that she took 3 days ago. Patient states over the past few days she has had been having a scratchy throat, itchy/watery eyes, nasal congestion and a cough. She states she suffers from seasonal allergies every year and her symptoms were consistent with her normal allergic rhinitis. She states approximately 2 hours after taking her Claritin she began having some mild chest pain that was worse with movement. She was also having some mild shortness of breath but also tells me this was most likely due to her having to wear a mask at work. She has no previous cardiac or pulmonary history. She states symptoms have been intermittent since onset. She has not been running fevers. Onset (ago): day(s) Timing of current episode: episodic Prior episodes: No Onset: during rest Pain location: substernal Pain radiation: none Severity: mild Relieving factors: nothing Exacerbating factors: other (movement) Associated symptoms: Reports no associated symptoms and dyspnea; Deny abdominal pain, fever(s), nausea, palpitations, syncope or vomiting Treatment prior to arrival: none Review of Systems Const: Denies: fever(s), chills, body aches, change in appetite, change in weight, fatigue or malaise Eyes: Reports: eye discharge and other (eye itchiness ); Denies: change in vision, blurry vision, photophobia, floaters or seeing flashes ENMT: Reports: hoarseness, nasal discharge, nasal congestion, post nasal drip and sinus pain; Denies: throat pain, enlarged tonsils, odynophagia, ear or mastoid pain, ear discharge, change in hearing, tinnitus or epistaxis Card: Reports: chest pain; Denies: palpitations, irregular heart rhythm, edema, swelling of feet/ankles, lightheadedness, syncope, pre-syncope, dyspnea on exertion, orthopnea, leg pain with exertion or acrocyanosis Resp: Reports: dyspnea, non-productive cough and chest congestion; Denies: productive cough, wheezing, stridor, pain on inspiration, change in phlegm color or hemoptysis GI: Denies: abdominal pain, nausea, vomiting or diarrhea Musc: Denies: neck pain or back pain Skin/Breast: Denies: rash Neuro: Denies: headache(s), numbness in extremities, weakness in extremities or sensory changes PFS ED PFSH: Medical History (Updated 04/10/20 @ 20:08 by RYANN Mason) No significant past medical history Surgical History (Updated 01/26/20 @ 16:12 by Victoriano Vivas DO) H/O oral surgery Social History Smoking and tobacco status: current some day smoker Female Reproductive History: Date of last menstrual period: 09/05/19 Physical Exam Const: COMMON NORMALS: no acute distress, average body habitus, patient oriented x3, no limitations, healthy appearing, alert and well nourished ORIENTATION/CONSCIOUSNESS: Yes oriented to person, Yes oriented to place and Yes oriented to time HENMT: COMMON NORMALS: normocephalic, atraumatic, hearing grossly normal bilaterally, external ears normal, EAC's normal, TM's normal bilaterally, Normal external nose present, oropharynx normal, dentition normal and gingiva normal HEAD & SCALP: normal to inspection, normocephalic and atraumatic FACE & SINUS: sinus tenderness maxillary NOSE: Normal external nose present and Normal nares present EXTERNAL EAR: Yes external ears normal EXTERNAL AUDITORY CANAL: EAC's normal TYMPANIC MEMBRANE: TM's normal bilaterally MOUTH: Normal oral and palatal mucosa present, lip normal and tongue normal THROAT: posterior oropharynx normal, tonsils normal and uvula midline Eye: COMMON NORMALS: Equal, round and reactive pupils present, EOMs intact bilaterally, conjunctivae normal and no scleral icterus GENERAL EYE: appearance normal, both eyes and all related structures CONJUNCTIVA: Yes conjunctivae normal PUPIL: Yes Equal, round and reactive pupils present Neck/C-Spine: COMMON NORMALS: full ROM, no lymphadenopathy and no meningeal signs Chest: COMMONS NORMALS: normal inspection of the chest and normal palpation of entire chest wall Resp: COMMON NORMALS: normal respiratory effort and clear to auscultation bilaterally AUSCULTATION: clear to auscultation bilaterally Cardio: COMMON NORMALS: regular rate and regular rhythm RATE: regular rate RHYTHM: regular rhythm GI: COMMON NORMALS: Normal to inspection, nondistended, normoactive bowel sounds present, Soft to palpation, non-tender, No hepatosplenomegaly present and no masses PALPATION: Yes Soft to palpation and Yes No hepatosplenomegaly present Extremity: COMMON NORMALS: normal to inspection GENERAL: Yes normal exam except as noted Neuro: COMMON NORMALS: patient oriented x3 SENSORIUM/ORIENTATION: Yes alert, Yes oriented to person, Yes oriented to place and Yes oriented to time MENINGEAL SIGNS: Yes no meningeal signs Skin: COMMON NORMALS: no rashes or lesions noted GENERAL SKIN EXAM: no rashes or lesions noted Course Vital Signs: Vital signs: Vital Signs Temperature 98.5 F 04/10/20 19:23 Pulse Rate 84 04/10/20 20:13 Respiratory Rate 16 04/10/20 20:13 Blood Pressure 112/73 04/10/20 20:13 Pulse Oximetry 98 04/10/20 20:13 MDM - Chest Pain MDM Narrative: Medical decision making narrative: Symptoms do not sound like an allergic reaction to Claritin. She is in no acute distress. Her vitals are normal. EKG normal. CXR normal. Her chest pain is worse with movement per patient. It is not positional or exertional. Discussed COVID testing however patient adamantly refuses. I do not see a need for emergent labs or cardiac workup at this time. Return to ED precautions given. Imaging Data^: CXR: My impression: NAD; no changes from previous films EKG Data^: EKG 1: EKG interpretation date: 04/10/20 EKG interpretation time: 19:30 Interpretation: Sinus rhythm with sinus arrhythmia Rate [address] elevation or depression changes noted Discharge Plan Discharge Patient Disposition: Home Clinical Impression: Allergic rhinitis Qualifiers: Allergic rhinitis trigger: unspecified Allergic rhinitis seasonality: seasonal Qualified Code(s): J30.2 - Other seasonal allergic rhinitis Condition: Stable Prescriptions: No Action No Known Home Medications RF: 0 Discharge Orders: Discharge Order (Routine); Ordered 04/10/20 Ordered By: Mary Hernandez Referrals: Darin Lane MD [Primary Care Provider] - Patient Instructions: Allergic Rhinitis (ED), Allergies (ED) Activity Restrictions/Additional Instructions: He may return to the emergency department for worsening chest pain, worsening shortness of breath, difficulty breathing, fevers greater than 100.4, generally feeling ill, or any other concerns you may have. Otherwise please follow-up with your primary care provider. Discharge Date/Time: 04/10/20 20:14 Coding Level of Care Code ED Newspaper Stuffer for Chg Fwd Exam Comprehensive
--- NOTE | 2020-04-10 19:35 | XRR_ITS ---
PROCEDURE INFORMATION: Exam: XR Chest, 1 View Exam date and time: 04/10/2020 7:35 PM Age: 24 years old Clinical indication: Chest pain; On breathing TECHNIQUE: Imaging protocol: XR of the chest Views: 1 view. COMPARISON: CR XR chest 2V* [id number] 01/26/2020 3:25 PM FINDINGS: Lungs: Unremarkable. No consolidation. Pleural space: Unremarkable. No pleural effusion. No pneumothorax. Heart/Mediastinum: Unremarkable. No cardiomegaly. Bones/joints: Unremarkable. XR/XR chest 1V portable [id number] IMPRESSION: No acute findings.
--- NOTE | 2020-04-10 19:35 | ECG_ITS ---
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 Measurements Intervals Marlette Rate: 84 P: 61 DC: 155 QRS: 73 QRSD: 83 T: 48 QT: 324 QTc: 385 Interpretive Statements SINUS RHYTHM WITH SINUS ARRHYTHMIA Compared to ECG 12/11/2015 15:44:17 No significant changes Electronically Signed On 04-12-2020 19:48:01 CDT by Tej Karimi M.D. [email or web address]
[2020-04-10 20:13] VITALS: BP 112/73; PULSE 84; RESP 16; O2SAT 98
== END 2020-04-10 20:14 | disposition home or self-care (01) ==
PROVIDERS: Emergency Provider Physician Assistant; PCP Family Medicine
DX: J30.2 Other seasonal allergic rhinitis (principal); F17.210 Nicotine dependence, cigarettes, uncomplicated
CPT/HCPCS: 12345; 71045; 93005; 99281; 99282

== ENCOUNTER 2020-08-19 16:50 | Emergency (ER) | payer SELFPAY ==
[2020-08-19 17:01] VITALS: BP 122/85; PULSE 99; RESP 18; TEMP 36.7; O2SAT 98; BMI 22.1
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
[2020-08-19] MEDS: ketorolac 60 mg/2 mL INJ IM (19:05)
[2020-08-19 19:08] VITALS: BP 126/81; PULSE 90; RESP 18; O2SAT 99
[2020-08-19 19:25] VITALS: BP 126/81; PULSE 84; RESP 18; O2SAT 98
== END 2020-08-19 19:25 | disposition home or self-care (01) ==
PROVIDERS: Emergency Provider Physician Assistant; PCP Family Medicine
DX: G44.319 Acute post-traumatic headache, not intractable (principal); S13.4XXA Sprain of ligaments of cervical spine, initial encounter; V89.2XXA Person injured in unspecified motor-vehicle accident, traffic, initial encounter; F17.210 Nicotine dependence, cigarettes, uncomplicated
CPT/HCPCS: 12345; 70450; 72125; 73030; 73502; 96372; 99281; 99283; J1885

== ENCOUNTER 2020-09-19 16:27 | Emergency (ER) | payer SELFPAY ==
[2020-09-19 16:41] VITALS: BP 122/79; PULSE 94; RESP 18; TEMP 36.6; O2SAT 97; BMI 22.1
--- NOTE | 2020-09-19 17:05 | W.ED.URI ---
HPI - URI/Sore Throat General: Chief Complaint: General Medical Stated Complaint: congestion Time Seen by Provider: 09/19/20 17:05 Source: patient Mode of arrival: ambulatory Limitations: no limitations History of Present Illness: HPI Narrative: Patient is a 25-year-old female who presents to ED today with a complaint of head and nasal congestion. She also has a complaint of one episode of diarrhea (non-bloody). She is not complaining of abdominal pain. Patient tells me she believes she has a sinus infection that has turned bacterial stating she is blowing green snot from her nose. She denies sore throat. No fevers. No cough. Patient states she does have a history of allergies. She states Claritin and Zyrtec did not work for her. She states she has been on Singulair in the past and thinks that it possibly works. MD elicited complaint: nasal congestion Onset (ago): day(s) Consistency: constant Severity: moderate Description of mucous: green Able to tolerate fluids by mouth: Yes Exacerbating factors: nothing Relieving factors: nothing Associated symptoms: Reports no associated symptoms, nasal congestion and sinus pain; Deny abdominal pain, chills, chest pain, diarrhea, ear or mastoid pain, fever(s), headache(s), nausea or vomiting Treatments prior to arrival: none Review of Systems Const: Denies: fever(s), chills, body aches, change in appetite, change in weight, fatigue or malaise Eyes: Denies: change in vision, blurry vision, photophobia, floaters or seeing flashes ENMT: Reports: nasal discharge, nasal congestion and sinus pain; Denies: throat pain, odynophagia, oral sores, ear or mastoid pain or post nasal drip Card: Denies: chest pain, palpitations, irregular heart rhythm, edema, swelling of feet/ankles, lightheadedness, syncope, pre-syncope, dyspnea on exertion or orthopnea Resp: Denies: dyspnea, productive cough, non-productive cough, wheezing, hemoptysis or chest congestion GI: Denies: abdominal pain, nausea, vomiting or diarrhea : Denies: flank pain, difficulty voiding, dysuria, urinary frequency, urinary urgency or urinary hesitancy Musc: Denies: neck pain, back pain, extremity pain, extremity swelling, joint pain or joint swelling Skin/Breast: Denies: rash Neuro: Denies: headache(s), numbness in extremities, weakness in extremities or sensory changes PFSH ED PFSH: Medical History No significant past medical history Surgical History H/O oral surgery Social History Smoking and tobacco status: current some day smoker Female Reproductive History: Date of last menstrual period: 09/06/20 Physical Exam Const: COMMON NORMALS: no acute distress, average body habitus, patient oriented x3, no limitations, healthy appearing, alert and well nourished HENMT: COMMON NORMALS: normocephalic, atraumatic, hearing grossly normal bilaterally, external ears normal, EAC's normal, TM's normal bilaterally, Normal external nose present, Normal nasal mucous membranes and turbinates present, moist oral mucous membranes, oropharynx normal, dentition normal and gingiva normal HEAD & SCALP: normal to inspection, normocephalic and atraumatic FACE & SINUS: sinus tenderness maxillary NOSE: Normal external nose present and Normal nasal mucous membranes and turbinates present EXTERNAL EAR: Yes external ears normal EXTERNAL AUDITORY CANAL: EAC's normal TYMPANIC MEMBRANE: TM's normal bilaterally MOUTH: Normal oral and palatal mucosa present, lip normal and tongue normal THROAT: posterior oropharynx normal, tonsils normal and uvula midline Eye: COMMON NORMALS: Equal, round and reactive pupils present and EOMs intact bilaterally GENERAL EYE: appearance normal, both eyes and all related structures PUPIL: Yes Equal, round and reactive pupils present Neck/C-Spine: COMMON NORMALS: full ROM, no lymphadenopathy and no meningeal signs Resp: COMMON NORMALS: normal respiratory effort and clear to auscultation bilaterally AUSCULTATION: clear to auscultation bilaterally Cardio: COMMON NORMALS: regular rate and regular rhythm RATE: regular rate RHYTHM: regular rhythm GI: COMMON NORMALS: Normal to inspection, nondistended, normoactive bowel sounds present, Soft to palpation, non-tender, No hepatosplenomegaly present and no masses PALPATION: Yes Soft to palpation and Yes No hepatosplenomegaly present Neuro: COMMON NORMALS: patient oriented x3 SENSORIUM/ORIENTATION: Yes alert MENINGEAL SIGNS: Yes no meningeal signs Skin: COMMON NORMALS: no rashes or lesions noted GENERAL SKIN EXAM: no rashes or lesions noted Course Vital Signs: Vital signs: Vital Signs Temperature 97.8 F 09/19/20 16:41 Pulse Rate 96 09/19/20 17:16 Respiratory Rate 16 09/19/20 17:16 Blood Pressure 125/81 09/19/20 17:16 Pulse Oximetry 99 09/19/20 17:16 Discharge Plan Discharge Patient Disposition: Home Clinical Impression: Sinusitis Qualifiers: Sinusitis location: maxillary Chronicity: acute Recurrence: non-recurrent Qualified Code(s): J01.00 - Acute maxillary sinusitis, unspecified Condition: Stable Prescriptions: New levofloxacin 500 mg tablet 500 mg PO DAILY 5 Days Qty: 5 RF: 0 Singulair 10 mg tablet 10 mg PO DAILY Qty: 30 RF: 0 No Action Tylenol 325 mg Tablet 325 - 650 mg PO Q6H PRN (Reason: Pain) RF: 0 ibuprofen 200 mg Tablet 200 - 400 mg PO Q6H PRN (Reason: Pain) RF: 0 Robaxin-750 750 mg tablet 750 mg PO Q8H Qty: 15 RF: 0 Discharge Orders: Discharge ED (Routine); Ordered 09/19/20 Ordered By: Mary Hernandez Referrals: Darin Lane MD [Primary Care Provider] - Patient Instructions: Opioid Safety Activity Restrictions/Additional Instructions: [facility] is committed to fighting the nationwide opiate epidemic. We are providing ALL patients with information regarding opiate safety. If you received opiate pain medication during your stay or if you received a prescription for opiate pain medication-please review this handout. If not, you may disregard. Thank you. Coding Level of Care Code ED Composition Worker for Kevin Parra
[2020-09-19 17:16] VITALS: BP 125/81; PULSE 96; RESP 16; O2SAT 99
== END 2020-09-19 18:27 | disposition home or self-care (01) ==
PROVIDERS: Emergency Provider Physician Assistant; PCP Family Medicine
DX: J01.00 Acute maxillary sinusitis, unspecified (principal); F17.210 Nicotine dependence, cigarettes, uncomplicated
CPT/HCPCS: 99282

== ENCOUNTER 2020-11-11 08:33 | Emergency (ER) | payer SELFPAY ==
--- NOTE | 2020-11-11 08:40 | ED_ITS ---
HPI - Headache General: Chief Complaint: Headache Stated Complaint: H/A Time Seen by Provider: 11/11/20 08:36 History of Present Illness: HPI Narrative: 25-year-old female presents with complaint of headache. She reports frontal headache for the last approximately 2 weeks. She has had some nausea. No vomiting. She is just taken sayc-qbe-hygsnsa medications. She has had migraines in the past she has photophobia. She also complaining of some ear discomfort. She denies any fever sweats chills any respiratory symptoms or rash. MD elicited complaint: headache Onset (ago): week(s) (2) Onset description: gradually Location: right, left and frontal Severity: moderate Quality & Timing: throbbing and similar to previous headaches Exacerbating factors: exertion, light and noise Relieving factors: rest Associated symptoms: Deny chest pain, confusion, cough, diaphoresis, eye pain, eye redness, fever(s), lightheadedness, loss of vision, malaise, nausea, neck stiffness, numbness, paresthesias, photophobia, pre-syncope, rash, seizures, short of breath, sound sensitivity, syncope, vomiting or weakness Treatments prior to arrival: acetaminophen and ibuprofen Review of Systems Const: Denies: fever(s), malaise or diaphoresis ENMT: Denies: throat pain, ear or mastoid pain, nasal discharge or nasal congestion Card: Denies: chest pain, lightheadedness, syncope or pre-syncope Resp: Denies: dyspnea, productive cough or non-productive cough GI: Denies: nausea or vomiting : Denies: flank pain, difficulty voiding, dysuria, urinary frequency or urinary urgency Skin/Breast: Denies: rash Neuro: Denies: confusion PFSH ED PFSH: Medical History No significant past medical history Surgical History H/O oral surgery Social History Smoking and tobacco status: current some day smoker Female Reproductive History: Date of last menstrual period: 09/06/20 Physical Exam Const: COMMON NORMALS: no acute distress GENERAL APPEARANCE: cooperative and comfortable ORIENTATION/CONSCIOUSNESS: Yes awake, Yes oriented to person, Yes oriented to place and Yes oriented to time HENMT: COMMON NORMALS: normocephalic, atraumatic and hearing grossly normal bilaterally HEAD & SCALP: normocephalic and atraumatic Eye: COMMON NORMALS: Equal, round and reactive pupils present, EOMs intact bilaterally, conjunctivae normal and no scleral icterus CONJUNCTIVA: Yes conjunctivae normal PUPIL: Yes Equal, round and reactive pupils present DIRECT OPHTHALMOSCOPY: No photophobia Neck/C-Spine: COMMON NORMALS: full ROM, no lymphadenopathy, supple and no JVD Lymph: LYMPHATIC: no lymphadenopathy noted and no lymphedema noted Resp: COMMON NORMALS: normal respiratory effort, No retractions, No use of accessory muscles and clear to auscultation bilaterally AUSCULTATION: clear to auscultation bilaterally Cardio: COMMON NORMALS: no JVD, regular rate, regular rhythm and No murmurs present (Cardio) RATE: regular rate RHYTHM: regular rhythm GI: COMMON NORMALS: Soft to palpation and No hepatosplenomegaly present AUSCULTATION: Yes normoactive bowel sounds PALPATION: Yes Soft to palpation, No Tenderness to palpation present (GI), No Guarding due to palpation present (GI) and Yes No hepatosplenomegaly present Extremity: COMMON NORMALS: normal to inspection, capillary refill normal, no clubbing, cyanosis or edema, no calf tenderness and no pedal edema Neuro: SENSORIUM/ORIENTATION: Yes oriented to person, Yes oriented to place and Yes oriented to time Skin: COMMON NORMALS: no rashes or lesions noted GENERAL SKIN EXAM: no rashes or lesions noted Course Vital Signs: Vital signs: Vital Signs Temperature 97.9 F 11/11/20 08:41 Pulse Rate 88 11/11/20 09:29 Respiratory Rate 16 11/11/20 08:41 Blood Pressure 122/77 11/11/20 09:29 Pulse Oximetry 98 11/11/20 09:29 MDM - Headache MDM Narrative: Medical decision making narrative: Improved with medications given although the DHE was only given 1/2 mg as it made her count of dizzy we did not repeat the dose. Her headache is better we will go ahead and discharge her home she can use as needed Phenergan if it recurs recommend rest for the rest of today follow-up with her primary care as needed. Lab Data: Labs: Lab Results 11/11/20 11/11/20 Range/Units 08:54 08:54 WBC 4.7 (4.0-10.0) 10^3/ uL RBC 4.36 (4.1-5.3) 10^6/u L Hgb 13.9 (11.5-15.3) g/dL Hct 41.8 (37.0-47.0) % MCV 95.9 (81-99) fL MCH 31.9 (28.0-34.0) pg MCHC 33.3 (30.0-36.0) g/dL RDW 12.3 (12.1-15.1) % Plt Count 156 (130-400) 10^3/c mm MPV 12.7 H (7.4-10.4) fL Neut % (Auto) 62.9 % Lymph % (Auto) 27.0 % [place] % (Auto) 7.4 % Eos % (Auto) 1.7 % Baso % (Auto) 0.6 % Neut # (Auto) 2.96 (1.8-7.7) 10^3/u L Lymph # (Auto) 1.3 (0.8-4.8) 10^3/u L [place] # (Auto) 0.4 (0.2-0.9) 10^3/u L Eos # (Auto) 0.1 (0.0-0.8) 10^3/u L Baso # (Auto) 0.0 (0.0-0.1) 10^3/u L Nucleated RBC % (a uto) 0 % Nucleated RBCs # 0.0 /100WBC Sodium 141 (136-145) mmol/L Potassium 4.0 (3.5-5.1) mmol/L Chloride 106 (98-107) mmol/L Carbon Dioxide 24 (22-29) mmol/L Anion Gap 15.0 (5-19) BUN 17 (6-20) mg/dL Creatinine 0.7 (0.5-0.9) mg/dL GFR Calculation 102.0 (90-130) mL/min Glucose 114 (65-115) mg/dL Calculated Osmolal ity 294 (285-295) mOsm/k g Calcium 9.1 (8.5-10.5) mg/dL Discharge Plan Discharge Patient Disposition: Home Clinical Impression: Tension headache Condition: Stable Prescriptions: New promethazine 25 mg tablet 25 mg PO Q6H PRN (Reason: As needed for headache) Qty: 14 RF: 0 No Action Tylenol 325 mg Tablet 325 - 650 mg PO Q6H PRN (Reason: Pain) RF: 0 ibuprofen 200 mg Tablet 200 - 400 mg PO Q6H PRN (Reason: Pain) RF: 0 Robaxin-750 750 mg tablet 750 mg PO Q8H Qty: 15 RF: 0 Singulair 10 mg tablet 10 mg PO DAILY Qty: 30 RF: 0 Discharge Orders: Discharge ED (Routine); Ordered 11/11/20 Ordered By: Victoriano Vivas Referrals: Darin Lane MD [Primary Care Provider] - Discharge Diet: Usual diet Discharge Activity: Increase activity as tolerated Patient Instructions: Opioid Safety Activity Restrictions/Additional Instructions: Recommend resting for the rest of today. Follow-up with your primary care doctor if symptoms persist. You can use the promethazine along with Tylenol or ibuprofen if you have any rebound headache. It will make you somewhat drowsy. Coding Level of Care Code ED Laundry Supervisor for Kevin Fwd Exam Comprehensive
[2020-11-11 08:41] VITALS: BP 140/94; PULSE 105; RESP 16; TEMP 36.6; O2SAT 99; BMI 22.1
[2020-11-11 08:57] VITALS: O2SAT 98
[2020-11-11 09:00] LABS: Basophils % 0.6 %; Eosinophils # 0.1 10^3/uL (0.0-0.8); Eosinophils % 1.7 %; Hematocrit 41.8 % (37.0-47.0); Hemoglobin 13.9 g/dL (11.5-15.3); Lymphocytes # 1.3 10^3/uL (0.8-4.8); Mean Corpuscular HGB Conc 33.3 g/dL (30.0-36.0); Mean Corpuscular Hemoglobin 31.9 pg (28.0-34.0); Mean Corpuscular Volume 95.9 fL (81-99); Mean Platelet Volume 12.7 fL (7.4-10.4); Monocytes # 0.4 10^3/uL (0.2-0.9); Monocytes % 7.4 %; Neutrophils # 2.96 10^3/uL (1.8-7.7); Neutrophils % 62.9 %; Nucleated Red Blood Cells % 0 %; Platelet Count 156 10^3/cmm (130-400); Red Blood Count 4.36 10^6/uL (4.1-5.3); Red Cell Distribution Width 12.3 % (12.1-15.1); White Blood Count 4.7 10^3/uL (4.0-10.0)
[2020-11-11 09:15] LABS: Blood Urea Nitrogen 17 mg/dL (6-20); Calcium 9.1 mg/dL (8.5-10.5); Carbon Dioxide 24 mmol/L (22-29); Chloride 106 mmol/L (98-107); Glucose 114 mg/dL (65-115); Osmolality Calculated 294 mOsm/kg (285-295); Sodium 141 mmol/L (136-145)
[2020-11-11] MEDS: dihydroergotamine 1 mg/mL Inj IVP (09:17)
[2020-11-11] MEDS: ketorolac 30 mg/mL INJ IVP (09:18)
[2020-11-11] MEDS: promethazine 25 mg/mL SDV 1 mL IM (09:18)
[2020-11-11] MEDS: sodium chlor 0.9% + KCl 20 mEq 20 MEQ/1,000 ML BAG 125 MEQ IV (09:18)
[2020-11-11 09:29] VITALS: BP 122/77; PULSE 88; O2SAT 98
--- NOTE | 2020-11-11 09:52 | PC.NURSE ---
using DHE protocol, nurse going in to reassess pt at 0950 and ED physician in room stating to not give the other 05.mg DHE due to the 1st dose making pt so dizzy and flushed. see paper chart
[2020-11-11 10:20] VITALS: BP 117/77; PULSE 85; RESP 16; O2SAT 98
== END 2020-11-11 10:21 | disposition home or self-care (01) ==
PROVIDERS: Emergency Provider Family Medicine; PCP Family Medicine
DX: G44.209 Tension-type headache, unspecified, not intractable (principal); F17.210 Nicotine dependence, cigarettes, uncomplicated
CPT/HCPCS: 80048; 85025; 96365; 96372; 96375; 99283; J1110; J1885; J2550

== ENCOUNTER 2021-02-24 09:06 | Emergency (ER) | payer SELFPAY ==
[2021-02-24 09:50] VITALS: BP 129/81; PULSE 80; RESP 16; TEMP 36.8; O2SAT 96; BMI 23.6
[2021-02-24 09:53] VITALS: BP 129/85; PULSE 74; RESP 19; O2SAT 99
[2021-02-24 10:53] VITALS: BP 123/81; PULSE 88; RESP 18; O2SAT 99
--- NOTE | 2021-02-24 11:02 | PC.PHAR ---
pt states she takes care of her own medications-pt states she stop taking the depo shot in november-pt states she just takes amitriptyline prn
[2021-02-24 11:10] VITALS: BP 123/81; PULSE 77; RESP 19; O2SAT 99
[2021-02-24] MEDS: ondansetron 2 mg/ML SDV 2 mL 4 MG IVP (11:11)
[2021-02-24] MEDS: sodium chloride 0.9% 1,000 ML 999 ML IV (11:11)
[2021-02-24 11:12] LABS: Add Urine Microscopic? NO; Charge for UA Resulting for Rev
[2021-02-24 11:19] LABS: Basophils % 0.6 %; Eosinophils # 0.1 10^3/uL (0.0-0.8); Eosinophils % 1.1 %; Hematocrit 46.8 % (37.0-47.0); Hemoglobin 15.1 g/dL (11.5-15.3); Lymphocytes # 1.1 10^3/uL (0.8-4.8); Lymphocytes % 20.9 %; Mean Corpuscular HGB Conc 32.3 g/dL (30.0-36.0); Mean Corpuscular Hemoglobin 31.4 pg (28.0-34.0); Mean Corpuscular Volume 97.3 fL (81-99); Mean Platelet Volume 12.7 fL (7.4-10.4); Monocytes # 0.3 10^3/uL (0.2-0.9); Monocytes % 6.4 %; Neutrophils # 3.75 10^3/uL (1.8-7.7); Neutrophils % 70.8 %; Nucleated Red Blood Cells % 0 %; Platelet Count 149 10^3/cmm (130-400); Red Blood Count 4.81 10^6/uL (4.1-5.3); White Blood Count 5.3 10^3/uL (4.0-10.0)
[2021-02-24 11:25] LABS: Bilirubin Urine Neg (Negative); Blood Urine Neg (Negative); Glucose Urine UA Norm (Normal); Ketones Urine Negative (Negative); Leukocyte Esterase Urine Negative (Negative); Nitrate Urine Negative (Negative); Protein Urine Neg (Negative); Urine Appearance Clear (CLEAR); Urine Color Yellow (Yellow); Urobilinogen Urine Norm (Negative); pH Urine 7 (5-7)
--- NOTE | 2021-02-24 11:34 | W.ED.GENADLT ---
HPI - General Adult General: Chief complaint: General Medical Stated complaint: N/V DIZZY Time Seen by Provider: 02/24/21 10:44 History of Present Illness: HPI narrative: 25-year-old female presents emergency room with complaints of nausea vomiting dizziness. It began this morning when she got up she not had any fever sweats chills cough or myalgias. She had previously had a bout of Covid last year which she tested positive for. She had recently stopped her Depo-Provera earlier this year has not replaced with any other type of control. She denies any hematochezia melena hematemesis coffee-ground emesis no dysuria urgency or frequency she not had episodes like this Onset (ago): hour(s) Location: abdomen Severity: mild Quality: aching Pain Consistency: intermittent Relieving factors: none Exacerbating factors: none Associated symptoms: Reports decreased appetite and nausea; Deny chest pain, confusion, cough, diaphoresis, dyspnea, fevers/chills, headache(s), malaise, rash, palpitations, seizures, short of breath, syncope, vomiting or weakness Treatments prior to arrival: none Review of Systems Const: Denies: malaise or diaphoresis ENMT: Denies: throat pain, ear or mastoid pain, nasal discharge or nasal congestion Card: Denies: chest pain, palpitations or syncope Resp: Denies: dyspnea GI: Reports: nausea; Denies: vomiting : Denies: flank pain, difficulty voiding, dysuria, urinary frequency or urinary urgency Skin/Breast: Denies: rash Neuro: Denies: headache(s) or confusion PFS ED PFSH: Medical History No significant past medical history Surgical History H/O oral surgery Social History Smoking and tobacco status: current some day smoker Female Reproductive History: Date of last menstrual period: 02/03/21 Physical Exam Const: COMMON NORMALS: no acute distress GENERAL APPEARANCE: cooperative and comfortable ORIENTATION/CONSCIOUSNESS: Yes awake, Yes oriented to person, Yes oriented to place and Yes oriented to time HENMT: COMMON NORMALS: normocephalic, atraumatic and hearing grossly normal bilaterally HEAD & SCALP: normocephalic and atraumatic Neck/C-Spine: COMMON NORMALS: no JVD Resp: COMMON NORMALS: normal respiratory effort, No retractions, No use of accessory muscles and clear to auscultation bilaterally AUSCULTATION: clear to auscultation bilaterally Cardio: COMMON NORMALS: no JVD, regular rate, regular rhythm and No murmurs present (Cardio) RATE: regular rate RHYTHM: regular rhythm GI: COMMON NORMALS: Soft to palpation and No hepatosplenomegaly present AUSCULTATION: Yes normoactive bowel sounds PALPATION: Yes Soft to palpation, No Tenderness to palpation present (GI), No Guarding due to palpation present (GI) and Yes No hepatosplenomegaly present Extremity: COMMON NORMALS: normal to inspection, capillary refill normal, no clubbing, cyanosis or edema, no calf tenderness and no pedal edema Neuro: SENSORIUM/ORIENTATION: Yes oriented to person, Yes oriented to place and Yes oriented to time Skin: COMMON NORMALS: no rashes or lesions noted GENERAL SKIN EXAM: no rashes or lesions noted Course Vital Signs: Vital signs: Vital Signs Temperature 98.2 F 02/24/21 09:50 Pulse Rate 89 02/24/21 12:39 Respiratory Rate 18 02/24/21 12:39 Blood Pressure 124/74 02/24/21 12:39 Pulse Oximetry 98 02/24/21 12:39 MDM - General Adult MDM Narrative: Medical decision making narrative: Vomiting improved after fluids and antiemetics. Supportive cares if persist follow-up with primary care or return to the emergency room Lab Data: Labs: Lab Results 02/24/21 02/24/21 02/24/21 Range/Units 10:48 11:07 11:07 WBC 5.3 (4.0-10.0) 10^3/ uL RBC 4.81 (4.1-5.3) 10^6/u L Hgb 15.1 (11.5-15.3) g/dL Hct 46.8 (37.0-47.0) % MCV 97.3 (81-99) fL MCH 31.4 (28.0-34.0) pg MCHC 32.3 (30.0-36.0) g/dL RDW 12.0 L (12.1-15.1) % Plt Count 149 (130-400) 10^3/c mm MPV 12.7 H (7.4-10.4) fL Neut % (Auto) 70.8 % Lymph % (Auto) 20.9 % [place] % (Auto) 6.4 % Eos % (Auto) 1.1 % Baso % (Auto) 0.6 % Neut # (Auto) 3.75 (1.8-7.7) 10^3/u L Lymph # (Auto) 1.1 (0.8-4.8) 10^3/u L [place] # (Auto) 0.3 (0.2-0.9) 10^3/u L Eos # (Auto) 0.1 (0.0-0.8) 10^3/u L Baso # (Auto) 0.0 (0.0-0.1) 10^3/u L Nucleated RBC % (a uto) 0 % Nucleated RBCs # 0.0 /100WBC Sodium 138 (136-145) mmol/L Potassium 4.8 (3.5-5.1) mmol/L Chloride 105 (98-107) mmol/L Carbon Dioxide 23 (22-29) mmol/L Anion Gap 14.8 (5-19) BUN 17 (6-20) mg/dL Creatinine 0.7 (0.5-0.9) mg/dL GFR Calculation 102.0 (90-130) mL/min Glucose 92 (65-115) mg/dL Calculated Osmolal ity 287 (285-295) mOsm/k g Calcium 8.9 (8.5-10.5) mg/dL Total Bilirubin 0.4 (0.15-1.2) mg/dL AST 23 (0-32) U/L ALT 28 (0-33) U/L Alkaline Phosphata se 71 (35-105) IU/L Total Protein 7.3 (6.6-8.7) g/dL Albumin 4.6 (3.5-5.2) g/dL Globulin 2.7 (1.3-4.6) g/dL HCG, Qual (Negative) Urine Color Yellow (Yellow) Urine Appearance Clear (CLEAR) Urine pH 7 (5-7) Ur Specific Gravit y 1.000 L (1.005-1.030) Urine Protein Neg (Negative) Urine Glucose (UA) Norm (Normal) Urine Ketones Negative (Negative) Urine Blood Neg (Negative) Urine Nitrate Negative (Negative) Urine Bilirubin Neg (Negative) Urine Urobilinogen Norm (Negative) mg/dL Ur Leukocyte Mary Ann ase Negative (Negative) 02/24/21 Range/Units 11:07 WBC (4.0-10.0) 10^3/ uL RBC (4.1-5.3) 10^6/u L Hgb (11.5-15.3) g/dL Hct (37.0-47.0) % MCV (81-99) fL MCH (28.0-34.0) pg MCHC (30.0-36.0) g/dL RDW (12.1-15.1) % Plt Count (130-400) 10^3/c mm MPV (7.4-10.4) fL Neut % (Auto) % Lymph % (Auto) % [place] % (Auto) % Eos % (Auto) % Baso % (Auto) % Neut # (Auto) (1.8-7.7) 10^3/u L Lymph # (Auto) (0.8-4.8) 10^3/u L [place] # (Auto) (0.2-0.9) 10^3/u L Eos # (Auto) (0.0-0.8) 10^3/u L Baso # (Auto) (0.0-0.1) 10^3/u L Nucleated RBC % (a uto) % Nucleated RBCs # /100WBC Sodium (136-145) mmol/L Potassium (3.5-5.1) mmol/L Chloride (98-107) mmol/L Carbon Dioxide (22-29) mmol/L Anion Gap (5-19) BUN (6-20) mg/dL Creatinine (0.5-0.9) mg/dL GFR Calculation (90-130) mL/min Glucose (65-115) mg/dL Calculated Osmolal ity (285-295) mOsm/k g Calcium (8.5-10.5) mg/dL Total Bilirubin (0.15-1.2) mg/dL AST (0-32) U/L ALT (0-33) U/L Alkaline Phosphata se (35-105) IU/L Total Protein (6.6-8.7) g/dL Albumin (3.5-5.2) g/dL Globulin (1.3-4.6) g/dL HCG, Qual Negative (Negative) Urine Color (Yellow) Urine Appearance (CLEAR) Urine pH (5-7) Ur Specific Gravit y (1.005-1.030) Urine Protein (Negative) Urine Glucose (UA) (Normal) Urine Ketones (Negative) Urine Blood (Negative) Urine Nitrate (Negative) Urine Bilirubin (Negative) Urine Urobilinogen (Negative) mg/dL Ur Leukocyte Mary Ann ase (Negative) Discharge Plan Discharge Patient Disposition: Home Clinical Impression: Nausea & vomiting Condition: Stable Prescriptions: New Zofran 4 mg tablet 4 mg PO Q6H PRN (Reason: nausea and vomiting) Qty: 14 RF: 0 No Action amitriptyline 25 mg tablet 25 mg PO DAILY PRN (Reason: Headache) RF: 0 Hair,Skin and Nails Tablet 1 tab PO DAILY RF: 0 Adult Multivitamin Gummies 200 mcg Tablet,Chewable 1 tab PO DAILY RF: 0 Azo Cranberry 250 mg Tablet,Chewable 250 mg PO PRN RF: 0 Azo Urinary Pain Relief 99.5 mg Tablet 99.5 mg PO PRN RF: 0 Discharge Orders: Discharge ED (Routine); Ordered 02/24/21 Ordered By: Victoriano Vivas Referrals: Darin Lane MD [Primary Care Provider] - Discharge Diet: Clear Liquid Discharge Activity: Increase activity as tolerated Patient Instructions: Opioid Safety Coding Level of Care Code ED Head Silverman for Chg Fwd Exam Comprehensive
[2021-02-24 11:45] LABS: Alanine Aminotransferase 28 U/L (0-33); Albumin Level 4.6 g/dL (3.5-5.2); Alkaline Phosphatase 71 IU/L (35-105); Anion Gap 14.8 (5-19); Aspartate Amino Transferase 23 U/L (0-32); Blood Urea Nitrogen 17 mg/dL (6-20); Calcium 8.9 mg/dL (8.5-10.5); Carbon Dioxide 23 mmol/L (22-29); Chloride 105 mmol/L (98-107); Globulin 2.7 g/dL (1.3-4.6); Glucose 92 mg/dL (65-115); Osmolality Calculated 287 mOsm/kg (285-295); Potassium 4.8 mmol/L (3.5-5.1); Sodium 138 mmol/L (136-145); Total Bilirubin 0.4 mg/dL (0.15-1.2); Total Protein 7.3 g/dL (6.6-8.7)
[2021-02-24 11:53] LABS: HCG, Serum Qual Negative (Negative)
[2021-02-24 12:39] VITALS: BP 124/74; PULSE 89; RESP 18; O2SAT 98
== END 2021-02-24 12:41 | disposition home or self-care (01) ==
PROVIDERS: Emergency Provider Family Medicine; PCP Family Medicine
DX: R11.2 Nausea with vomiting, unspecified (principal); F17.210 Nicotine dependence, cigarettes, uncomplicated
CPT/HCPCS: 80053; 81003; 84703; 85025; 96361; 96374; 99284; J2405; J7030

== ENCOUNTER 2021-06-27 09:48 | Emergency (ER) | payer BC, SELFPAY ==
--- NOTE | 2021-06-27 10:37 | US_ITS ---
WS: [id number] ULTRASOUND OB FOCUSED HISTORY: abdominal pain/cramping COMPARISON: None available. Single intrauterine gestation is present in cephalic position. Cervix is closed at 4.2 cm. Normal shamika unt of amniotic fluid. Placenta is developing posterior with no previa or abruption. heart rate at 153 BPM. No free fluid in the pelvis. Both ovaries are identified and normal. Normal vascularity to each ovary . US/US OB limited [id number] IMPRESSION: 1. Normal cardiac activity early intrauterine gestation. 2. Normal flow in each ovary. 3. Posterior placenta with no previa.
--- NOTE | 2021-06-27 10:37 | ED_ITS ---
HPI - General: Chief complaint: Abdominal Pain Stated complaint: 15 WKS PREG/ABD PAIN Time Seen by Provider: 06/27/21 10:16 Source: patient Mode of arrival: ambulatory Limitations: no limitations History of Present Illness: HPI Narrative: Patient is a 26-year-old female at approximately 16 weeks gestation here for concerns of abdominal pain that began yesterday. Patient tells me she recently had an ultrasound through her OB Dr. Lane and stated everything was normal. Patient states yesterday she began noticing cramping while walking and states she googled it and is concerned for Shreyas Lott contractions. Patient tells me symptoms fully alleviated by lying flat and resting. She is not having any nausea vomiting diarrhea. No fevers. No vaginal bleeding or discharge. MD Complaint: abdominal pain Onset (ago): day(s) Pain Consistency: intermittent Location: abdomen Quality: Cramping Relieving factors: rest (lying down/flat) Exacerbating factors: other (walking) Vaginal discharge: none Vaginal bleeding: none Date of Last Menstrual Period: 02/03/21 Patient : Yes OB History - Current : no complications care: followed by OB (Dr. Lane) and previous ultrasound confirms IUP Associated symptoms: Reports abdominal pain; Deny dysuria, headache(s), malaise, nausea, vaginal discharge or vomiting Review of Systems Const: Denies: fever(s), chills, body aches, fatigue or malaise Card: Denies: chest pain Resp: Denies: dyspnea GI: Reports: abdominal pain; Denies: nausea, vomiting, diarrhea, change in bowel habits or change in stool character : Denies: flank pain, difficulty voiding, dysuria, urinary frequency, urinary urgency, urinary hesitancy, hematuria, genital lesions, genital pruritis, vaginal odor, vaginal bleeding, vaginal discharge or pelvic pain Musc: Denies: neck pain, back pain, extremity pain or joint pain Skin/Breast: Denies: rash Neuro: Denies: headache(s) PFSH ED PFSH: Medical History No significant past medical history Surgical History H/O oral surgery Social History (Reviewed 08/05/21 @ 11:36 by BLADE Jhaveri Smoking and tobacco status: current some day smoker Female Reproductive History: Date of last menstrual period: 02/03/21 Physical Exam Const: COMMON NORMALS: no acute distress, average body habitus, patient oriented x3, no limitations, healthy appearing, alert and well nourished GENERAL APPEARANCE: cooperative Resp: COMMON NORMALS: normal respiratory effort and clear to auscultation bilaterally AUSCULTATION: clear to auscultation bilaterally Cardio: COMMON NORMALS: regular rate and regular rhythm RATE: regular rate RHYTHM: regular rhythm GI: COMMON NORMALS: Soft to palpation, No hepatosplenomegaly present and no masses INSPECTION: Yes normal to inspection and Yes gravid abdomen AUSCULTATION: Yes normoactive bowel sounds PALPATION: Yes Soft to palpation, Yes Tenderness to palpation present (GI) (mild tenderness across mid abdomen ), No Guarding due to palpation present (GI), No Rigid due to palpation and Yes No hepatosplenomegaly present : COMMON NORMALS: Yes no CVA tenderness BLADDER/KIDNEY EXAM: Yes no CVA tenderness Back/Pelvis: COMMON NORMALS: no CVA tenderness Neuro: COMMON NORMALS: patient oriented x3 SENSORIUM/ORIENTATION: Yes alert Skin: COMMON NORMALS: no rashes or lesions noted GENERAL SKIN EXAM: no rashes or lesions noted Course Vital Signs: Vital signs: Vital Signs Temperature 98.4 F 06/27/21 11:50 Pulse Rate 77 06/27/21 11:50 Respiratory Rate 18 06/27/21 11:50 Blood Pressure 113/72 06/27/21 11:50 Pulse Oximetry 99 06/27/21 11:50 MDM - OB/Uterine Contractions MDM Narrative: Medical decision making narrative: Patient's OB ultrasound is normal. Cervix is closed. Vital signs are normal. Labs are unremarkable. She is not having any vaginal bleeding or discharge. At this time I would recommend follow-up with her OB/PCP provider for further evaluation and close observation of pain and symptoms at home with strict return to ED precautions. Lab Data: Labs: Lab Results 06/27/21 06/27/21 06/27/21 10:47 10:47 11:20 WBC 5.6 10^3/uL 10^3/ uL (4.0-10.0) RBC 4.22 10^6/uL 10^6 /uL (4.1-5.3) Hgb 13.4 g/dL g/dL (11.5-15.3) Hct 40.1 % % (37.0-47.0) MCV 95.0 fl fl (81-99) MCH 31.8 pg pg (28.0-34.0) MCHC 33.4 g/dL g/dL (30.0-36.0) RDW 12.7 % % (12.1-15.1) Plt Count 115 10^3/cmm L 10 ^3/cmm (130-400) MPV 12.5 fL H fL (7.4-10.4) Neut % (Auto) 81.1 % % Lymph % (Auto) 13.7 % % [place] % (Auto) 4.1 % % Eos % (Auto) 0.4 % % Baso % (Auto) 0.2 % % Neut # (Auto) 4.55 10^3/uL 10^3 /uL (1.8-7.7) Lymph # (Auto) 0.8 10^3/uL 10^3/ uL (0.8-4.8) [place] # (Auto) 0.2 10^3/uL 10^3/ uL (0.2-0.9) Eos # (Auto) 0.0 10^3/uL 10^3/ uL (0.0-0.8) Baso # (Auto) 0.0 10^3/uL 10^3/ uL (0.0-0.1) Nucleated RBC % (a uto) 0 % % Nucleated RBCs # 0.0 /100WBC /100W BC Sodium 137 mmol/L mmol/L (136-145) Potassium 4.1 mmol/L mmol/L (3.5-5.1) Chloride 103 mmol/L mmol/L (98-107) Carbon Dioxide 19 mmol/L L mmol/ L (22-29) Anion Gap 19.1 H (5-19) BUN 8 mg/dL mg/dL (6-20) Creatinine 0.4 mg/dL L mg/dL (0.5-0.9) GFR Calculation 192.9 mL/min H mL /min (90-130) Glucose 89 mg/dL mg/dL (65-115) Calculated Osmolal ity 282 mOsm/kg L mOs m/kg (285-295) Calcium 8.9 mg/dL mg/dL (8.5-10.5) Total Bilirubin 0.2 mg/dL mg/dL (0.15-1.2) AST 12 U/L U/L (0-32) ALT 7 U/L U/L (0-33) Alkaline Phosphata se 50 IU/L IU/L (35-105) Total Protein 6.3 g/dL L g/dL (6.6-8.7) Albumin 4.1 g/dL g/dL (3.5-5.2) Globulin 2.2 g/dL g/dL (1.3-4.6) Ser , Dina i-Qnt 9155.00 mIU/mL mI U/mL Urine Color Yellow (Yellow) Urine Appearance Cloudy (CLEAR) Urine pH 7 (5-7) Ur Specific Gravit y 1.015 (1.005-1.030) Urine Protein Neg (Negative) Urine Glucose (UA) Norm (Normal) Urine Ketones Negative (Negative) Urine Blood Neg (Negative) Urine Nitrate Negative (Negative) Urine Bilirubin Neg (Negative) Urine Urobilinogen 1 mg/dL H mg/dL (Negative) Ur Leukocyte Mary Ann ase 1+ H (Negative) Urine RBC None /hpf /hpf (0-2) Urine WBC 5-10 /hpf H /hpf (0-5) Ur Squamous Epith Cells 5-10 /hpf H /hpf (0-5) Amorphous Sediment Not Reportable Urine Bacteria 4+ /hpf H /hpf (NONE) Imaging Data^: US OB: Radiologist's impression: [address] [id number] ReportSigned Patient: Diana Kelley #: [id number]: [id number]#:[id number]/Sex: 26 / FADM Date: 06/27/21Loc: ERRoom/Bed:Attending Dr: Ordering Provider/Ordering MD: Mary Hernandez Date of Service: 06/27/21 Procedure(s): US OB limited [id number] Accession Number(s): [id number] Report Number: [id number] WS: [id number] ULTRASOUND OB FOCUSED HISTORY: abdominal pain/cramping COMPARISON: None available. Single intrauterine gestation is present in cephalic position. Cervix is closed at 4.2 cm. Normal amount of amniotic fluid. Placenta is developing posterior with no previa or abruption. heart rate at 153 BPM. No free fluid in the pelvis. Both ovaries are identified and normal. Normal vascularity to each ovary. US/ OB limited 22661 IMPRESSION: 1. Normal cardiac activity early intrauterine gestation. 2. Normal flow in each ovary. 3. Posterior placenta with no previa. Dictated By:Karen Stoll DOSigned By:Karen Stoll DOSigned Date/Time:06/27/21 1140DD/ 1137 Discharge Plan Discharge Patient Disposition: Home Clinical Impression: Abdominal pain during Qualifiers: Trimester: second trimester Qualified Code(s): O26.892 - Other specified related conditions, second trimester Condition: Stable Prescriptions: No Action Tylenol Ex Str Rapid Release 500 mg Tablet 250 mg PO Q4H PRN (Reason: Pain) RF: 0 Gummies 400 mcg-35 mg- 25 mg-5 mg Tablet,Chewable 1 tab PO DAILY RF: 0 Discharge Orders: Discharge ED (Routine); Ordered 06/27/21 Ordered By: Mary Hernandez Referrals: Darin Lane MD [Primary Care Provider] - Activity Restrictions/Additional Instructions: As we discussed please contact your OB today to schedule a follow-up appointment for reevaluation. You need to return to the emergency department for worsening or severe abdominal pain/cramping, vaginal bleeding or discharge, fevers, repetitive episodes of vomiting or diarrhea, or any other concerns you may have. Coding Level of Care Code ED Shoe Worker for Chg Fwd Exam Detailed
[2021-06-27 10:55] VITALS: BP 113/72; PULSE 88; RESP 16; TEMP 36.9; O2SAT 100
[2021-06-27 10:59] LABS: Basophils % 0.2 %; Eosinophils % 0.4 %; Hematocrit 40.1 % (37.0-47.0); Hemoglobin 13.4 g/dL (11.5-15.3); Lymphocytes # 0.8 10^3/uL (0.8-4.8); Lymphocytes % 13.7 %; Mean Corpuscular HGB Conc 33.4 g/dL (30.0-36.0); Mean Corpuscular Hemoglobin 31.8 pg (28.0-34.0); Mean Platelet Volume 12.5 fL (7.4-10.4); Monocytes # 0.2 10^3/uL (0.2-0.9); Monocytes % 4.1 %; Neutrophils # 4.55 10^3/uL (1.8-7.7); Neutrophils % 81.1 %; Nucleated Red Blood Cells % 0 %; Platelet Count 115 10^3/cmm (130-400); Red Blood Count 4.22 10^6/uL (4.1-5.3); Red Cell Distribution Width 12.7 % (12.1-15.1); White Blood Count 5.6 10^3/uL (4.0-10.0)
[2021-06-27 11:42] LABS: Alanine Aminotransferase 7 U/L (0-33); Albumin Level 4.1 g/dL (3.5-5.2); Alkaline Phosphatase 50 IU/L (35-105); Anion Gap 19.1 (5-19); Aspartate Amino Transferase 12 U/L (0-32); Blood Urea Nitrogen 8 mg/dL (6-20); Calcium 8.9 mg/dL (8.5-10.5); Carbon Dioxide 19 mmol/L (22-29); Chloride 103 mmol/L (98-107); Globulin 2.2 g/dL (1.3-4.6); Glomerular Filtration Rate 192.9 mL/min (90-130); Glucose 89 mg/dL (65-115); Osmolality Calculated 282 mOsm/kg (285-295); Potassium 4.1 mmol/L (3.5-5.1); Sodium 137 mmol/L (136-145); Total Bilirubin 0.2 mg/dL (0.15-1.2); Total Protein 6.3 g/dL (6.6-8.7)
[2021-06-27 11:50] VITALS: BP 113/72; PULSE 77; RESP 18; TEMP 36.9; O2SAT 99; BMI 23.7
[2021-06-27 12:12] LABS: Add Urine Microscopic? YES; Bilirubin Urine Neg (Negative); Blood Urine Neg (Negative); Glucose Urine UA Norm (Normal); Ketones Urine Negative (Negative); Leukocyte Esterase Urine 1+ (Negative); Nitrate Urine Negative (Negative); Protein Urine Neg (Negative); Specific Gravity, Urine 1.015 (1.005-1.030); Urine Appearance Cloudy (CLEAR); Urine Color Yellow (Yellow); Urobilinogen Urine 1 mg/dL (Negative); pH Urine 7 (5-7)
[2021-06-27 12:13] LABS: Add Urine Culture? Yes; Bacteria Urine 4+ /hpf
--- NOTE | 2021-06-27 12:54 | PC.NURSE ---
Pt arrived via POV with significant other form home. Pt reports she believes she is havoing ann [place] cramping type pain in her lower abdomen. Pt reports this started yesterday and has continued today. Pt denies any N/N, pt A/O x4, vss
== END 2021-06-27 13:03 | disposition home or self-care (01) ==
PROVIDERS: Emergency Provider Physician Assistant; PCP Family Medicine
DX: O26.892 Other specified pregnancy related conditions, second trimester (principal); O99.332 Smoking (tobacco) complicating pregnancy, second trimester; F17.210 Nicotine dependence, cigarettes, uncomplicated; Z3A.16 16 weeks gestation of pregnancy
CPT/HCPCS: 76815; 80053; 81001; 84702; 85025; 87077; 87086; 87186; 99283; 99291

== ENCOUNTER 2021-08-18 08:23 | Emergency (ER) | payer BC, MEDICAID, SELFPAY ==
[2021-08-18 08:35] VITALS: BP 95/65; PULSE 110; RESP 18; TEMP 36.7; O2SAT 97; BMI 24.7
--- NOTE | 2021-08-18 08:42 | ED_ITS ---
HPI - General Adult General: Chief complaint: General Medical Stated complaint: CONGESTED, COUGH,SORE THROAT, N/V Time Seen by Provider: 08/18/21 08:25 History of Present Illness: 26-year-old female comes in complaining of sore throat nasal congestion back pain and vomiting also complaining some ear discomfort all began overnight. No fever at home no diarrhea. No dysuria urgency or frequency slight cough. Nothing seems to exacerbate or relieve. Onset (ago): hour(s) Location: head and chest Severity: mild Quality: aching Relieving factors: none Exacerbating factors: none Associated symptoms: Reports cough, decreased appetite, malaise and vomiting; Deny chest pain, confusion, diaphoresis, dyspnea, fevers/chills, headache(s), nausea, rash, palpitations, seizures, short of breath, syncope or weakness Treatments prior to arrival: none Review of Systems Const: Reports: malaise; Denies: diaphoresis ENMT: Reports: throat pain and ear or mastoid pain (Right); Denies: nasal discharge or nasal congestion Card: Denies: chest pain, palpitations or syncope Resp: Denies: dyspnea GI: Reports: vomiting; Denies: nausea : Denies: flank pain, difficulty voiding, dysuria, urinary frequency or urinary urgency Skin/Breast: Denies: rash Neuro: Denies: headache(s) or confusion [facility] ED PFSH: Medical History No significant past medical history Surgical History H/O oral surgery Social History Smoking and tobacco status: current some day smoker Female Reproductive History: Date of last menstrual period: 03/07/21 Physical Exam Const: COMMON NORMALS: no acute distress GENERAL APPEARANCE: cooperative and comfortable ORIENTATION/CONSCIOUSNESS: Yes awake, Yes oriented to person, Yes oriented to place and Yes oriented to time HENMT: COMMON NORMALS: normocephalic, atraumatic, hearing grossly normal bilaterally, external ears normal, EAC's normal, TM's normal bilaterally, Normal nasal mucous membranes and turbinates present, moist oral mucous membranes and oropharynx normal HEAD & SCALP: normocephalic and atraumatic NOSE: Normal nasal mucous membranes and turbinates present EXTERNAL EAR: Yes external ears normal EXTERNAL AUDITORY CANAL: EAC's normal TYMPANIC MEMBRANE: TM's normal bilaterally Eye: COMMON NORMALS: Equal, round and reactive pupils present, EOMs intact bilaterally, conjunctivae normal and no scleral icterus CONJUNCTIVA: Yes conjunctivae normal PUPIL: Yes Equal, round and reactive pupils present Neck/C-Spine: COMMON NORMALS: no JVD Resp: COMMON NORMALS: normal respiratory effort, No retractions, No use of accessory muscles and clear to auscultation bilaterally AUSCULTATION: clear to auscultation bilaterally Cardio: COMMON NORMALS: no JVD, regular rate, regular rhythm and No murmurs present (Cardio) RATE: regular rate RHYTHM: regular rhythm Extremity: COMMON NORMALS: normal to inspection, capillary refill normal, no clubbing, cyanosis or edema, no calf tenderness and no pedal edema Neuro: SENSORIUM/ORIENTATION: Yes oriented to person, Yes oriented to place and Yes oriented to time Skin: COMMON NORMALS: no rashes or lesions noted GENERAL SKIN EXAM: no rashes or lesions noted Course Vital Signs: Vital signs: Vital Signs Temperature 98.1 F 08/18/21 08:35 Pulse Rate 102 H 08/18/21 09:59 Respiratory Rate 17 08/18/21 09:59 Blood Pressure 98/65 08/18/21 09:59 Pulse Oximetry 96 08/18/21 09:59 MDM - General Adult Medical Decision Making Patient has COVID-19. Vital signs are good no significant abnormalities oxygen nation is normal. Lung sounds are clear. Unfortunately while under previous protocol she was a candidate for monoclonal antibodies we have a severe shortage and she does not not meet the current criteria. Treat symptomatically maintain self quarantine follow-up with primary care. Lab Data Laboratory Results SARS-CoV-2 Ag (Rapid) Positive (Negative) H 08/18/21 09:42 Group A Strep Rapid Negative (Negative) 08/18/21 09:42 Discharge Plan Discharge Patient Disposition: Home Clinical Impression: COVID-19 Condition: Stable Prescriptions: No Action No Known Home Medications 0RF Discharge Orders: Discharge ED (Routine); Ordered 08/18/21 Ordered By: Victoriano Vivas Referrals: Darin Lane MD [Primary Care Provider] - Patient Instructions: COVID-19 (Coronavirus Disease 2019) (ED), Opioid Safety Coding Level of Care Code ED Institutional Commodity Analyst for Reyg Fwd Exam Comprehensive
[2021-08-18 09:59] VITALS: BP 98/65; PULSE 102; RESP 17; O2SAT 96
[2021-08-18 11:24] LABS: Rapid Strep A Test Negative (Negative)
[2021-08-18 11:35] LABS: SARS Covid-2 Antigen Positive (Negative)
[2021-08-18 12:38] VITALS: BP 94/65; PULSE 113; RESP 17; O2SAT 95
== END 2021-08-18 11:58 | disposition home or self-care (01) ==
PROVIDERS: Emergency Provider Family Medicine; PCP Family Medicine
DX: U07.1 COVID-19 (principal); F17.210 Nicotine dependence, cigarettes, uncomplicated
CPT/HCPCS: 87081; 87426; 87880; 99282

== ENCOUNTER 2021-09-01 11:19 | Outpatient (CLI) | payer BC, MEDICAID, SELFPAY ==
[2021-09-01 11:21] VITALS: BP 133/74; PULSE 98
[2021-09-01 11:36] VITALS: BP 128/75; PULSE 78
[2021-09-01 11:45] VITALS: BMI 25.4
[2021-09-01 11:52] VITALS: BP 121/73; PULSE 78
[2021-09-01 12:06] VITALS: BP 116/66; PULSE 73
[2021-09-01 12:21] VITALS: BP 117/70; PULSE 71
== END 2021-09-01 12:28 | disposition home or self-care (01) ==
LOC: OPOB 11:19 → OBGYN 11:20
PROVIDERS: PCP Family Medicine; Visit Provider Family Medicine
DX: O26.899 Other specified pregnancy related conditions, unspecified trimester (principal); Z3A.00 Weeks of gestation of pregnancy not specified
CPT/HCPCS: 99211

== ENCOUNTER 2021-10-21 15:13 | Emergency (ER) | payer BC, MEDICAID, SELFPAY ==
[2021-10-21 15:24] VITALS: BP 109/78; PULSE 128; RESP 20; TEMP 36.7; O2SAT 97; BMI 26.9
--- NOTE | 2021-10-21 15:50 | W.ED.SOB ---
HPI - SOB/Dyspnea General: Chief Complaint: Shortness of Breath/Dyspnea Stated Complaint: cough, vomiting, sob Time Seen by Provider: 10/21/21 15:36 History of Present Illness: HPI Narrative: Pt comes in with cough, fever, congestion, vomiting, body aches. States the symptoms started earlier this morning. States she is 32 weeks . Denies any vomiting or diarrhea. Associated symptoms: Reports fever(s) and vomiting; Deny abdominal pain, chest pain, nausea, palpitations or polyuria Review of Systems Const: Reports: fever(s) and body aches Eyes: Denies: change in vision or blurry vision ENMT: Denies: throat pain or odynophagia Card: Denies: chest pain or palpitations Resp: Reports: non-productive cough; Denies: dyspnea GI: Reports: vomiting; Denies: abdominal pain or nausea : Denies: flank pain or dysuria Musc: Denies: neck pain or back pain Skin/Breast: Denies: rash or pruritus Neuro: Denies: headache(s) or numbness in extremities Psych: Denies: anxiety or change in appetite Endo: Denies: polyuria or excessive sweating PFSH ED PFSH: Medical History No significant past medical history Surgical History H/O oral surgery Social History Smoking and tobacco status: current some day smoker Female Reproductive History: Date of last menstrual period: 03/06/21 Physical Exam Const: COMMON NORMALS: no acute distress, patient oriented x3, healthy appearing and alert HENMT: COMMON NORMALS: normocephalic and atraumatic HEAD & SCALP: normocephalic and atraumatic OTHER: Dry mucous membranes Eye: COMMON NORMALS: Equal, round and reactive pupils present and EOMs intact bilaterally PUPIL: Yes Equal, round and reactive pupils present Neck/C-Spine: COMMON NORMALS: full ROM and supple Resp: COMMON NORMALS: normal respiratory effort, No retractions and No use of accessory muscles Cardio: COMMON NORMALS: regular rhythm RHYTHM: regular rhythm OTHER: Tachycardia GI: COMMON NORMALS: Normal to inspection, nondistended, normoactive bowel sounds present, Soft to palpation and non-tender PALPATION: Yes Soft to palpation Back/Pelvis: COMMON NORMALS: thoracic and lumbar spine normal to inspection and no thoracic nor lumbar tenderness Extremity: COMMON NORMALS: normal to inspection and full ROM Neuro: COMMON NORMALS: patient oriented x3 SENSORIUM/ORIENTATION: Yes alert Psych: COMMON NORMALS: mental status grossly normal and cooperative Skin: COMMON NORMALS: no rashes or lesions noted and no wounds GENERAL SKIN EXAM: no rashes or lesions noted Course Vital Signs: Vital signs: Vital Signs Temperature 98.1 F 10/21/21 15:24 Pulse Rate 128 H 10/21/21 15:24 Respiratory Rate 20 H 10/21/21 15:24 Blood Pressure 109/78 10/21/21 15:24 Pulse Oximetry 97 10/21/21 15:24 MDM - SOB/Dyspnea Medical Decision Making Pt comes in with cough, fever, congestion, vomiting, body aches. States the symptoms started earlier this morning. States she is 32 weeks . Denies any vomiting or diarrhea. On physical exam she is tachycardic. Lungs are clear to auscultation. Will check labs, give IV fluids, check flu swab, and reassess. On reassessment I talked to the patient about the test results. Will discharge home at this time with precautions return for worsening or changing symptoms. Lab Data : 10/21/21 16:35 10/21/21 16:35 Labs/Radiology: Laboratory Results WBC 9.3 10^3/uL (4.0-10.0) 10/21/21 16:35 RBC 3.64 10^6/uL (4.1-5.3) L 10/21/21 16:35 Hgb 10.8 g/dL (11.5-15.3) L 10/21/21 16:35 Hct 34.4 % (37.0-47.0) L 10/21/21 16:35 MCV 94.5 fl (81-99) 10/21/21 16:35 MCH 29.7 pg (28.0-34.0) 10/21/21 16:35 MCHC 31.4 g/dL (30.0-36.0) 10/21/21 16:35 RDW 12.7 % (12.1-15.1) 10/21/21 16:35 Plt Count 95 10^3/cmm (130-400) L 10/21/21 16:35 MPV 13.6 fL (7.4-10.4) H 10/21/21 16:35 Neut % (Auto) 87.2 % 10/21/21 16:35 Lymph % (Auto) 8.0 % 10/21/21 16:35 [place] % (Auto) 4.2 % 10/21/21 16:35 Eos % (Auto) 0.1 % 10/21/21 16:35 Baso % (Auto) 0.1 % 10/21/21 16:35 Neut # (Auto) 8.11 10^3/uL (1.8-7.7) H 10/21/21 16:35 Lymph # (Auto) 0.7 10^3/uL (0.8-4.8) L 10/21/21 16:35 [place] # (Auto) 0.4 10^3/uL (0.2-0.9) 10/21/21 16:35 Eos # (Auto) 0.0 10^3/uL (0.0-0.8) 10/21/21 16:35 Baso # (Auto) 0.0 10^3/uL (0.0-0.1) 10/21/21 16:35 Nucleated RBC % (auto) 0 % 10/21/21 16:35 Nucleated RBCs # 0.0 /100WBC 10/21/21 16:35 Sodium 136 mmol/L (136-145) 10/21/21 16:35 Potassium 3.6 mmol/L (3.5-5.1) 10/21/21 16:35 Chloride 104 mmol/L (98-107) 10/21/21 16:35 Carbon Dioxide 21 mmol/L (22-29) L 10/21/21 16:35 Anion Gap 14.6 (5-19) 10/21/21 16:35 BUN 6 mg/dL (6-20) 10/21/21 16:35 Creatinine 0.4 mg/dL (0.5-0.9) L 10/21/21 16:35 GFR Calculation 192.9 mL/min (90-130) H 10/21/21 16:35 Glucose 87 mg/dL (65-115) 10/21/21 16:35 Calculated Osmolality 279 mOsm/kg (285-295) L 10/21/21 16:35 Calcium 8.8 mg/dL (8.5-10.5) 10/21/21 16:35 Total Bilirubin 0.4 mg/dL (0.15-1.2) 10/21/21 16:35 AST 15 U/L (0-32) 10/21/21 16:35 ALT 8 U/L (0-33) 10/21/21 16:35 Alkaline Phosphatase 120 IU/L (35-105) H 10/21/21 16:35 Total Protein 6.4 g/dL (6.6-8.7) L 10/21/21 16:35 Albumin 3.3 g/dL (3.5-5.2) L 10/21/21 16:35 Globulin 3.1 g/dL (1.3-4.6) 10/21/21 16:35 Influenza Type A Ag Negative (Negative) 10/21/21 16:35 Influenza Type B Ag Negative (Negative) 10/21/21 16:35 Discharge Plan Discharge Patient Disposition: Home Clinical Impression: Cough, Viral illness Condition: Stable Prescriptions: No Action Pre-Aidee Multivitamins/Minerals 27-1-300 mg Capsule 1 cap PO DAILY 0RF Discharge Orders: Discharge ED (Routine); Ordered 10/21/21 Ordered By: Darin Vines Referrals: Darin Lane MD [Primary Care Provider] - Coding Level of Care Code ED Frame Pulley Mortising Machine Operator for Chg Fwd Exam Comprehensive
[2021-10-21] MEDS: sodium chloride 0.9% 1,000 ML 999 ML IV (16:38)
--- NOTE | 2021-10-21 16:39 | PC.NURSE ---
PT PLACED ON CONTINUOUS SPO2, NIBP, AND CM.
[2021-10-21 16:53] LABS: Basophils % 0.1 %; Eosinophils % 0.1 %; Hematocrit 34.4 % (37.0-47.0); Hemoglobin 10.8 g/dL (11.5-15.3); Lymphocytes # 0.7 10^3/uL (0.8-4.8); Mean Corpuscular HGB Conc 31.4 g/dL (30.0-36.0); Mean Corpuscular Hemoglobin 29.7 pg (28.0-34.0); Mean Corpuscular Volume 94.5 fl (81-99); Mean Platelet Volume 13.6 fL (7.4-10.4); Monocytes # 0.4 10^3/uL (0.2-0.9); Monocytes % 4.2 %; Neutrophils # 8.11 10^3/uL (1.8-7.7); Neutrophils % 87.2 %; Nucleated Red Blood Cells % 0 %; Platelet Count 95 10^3/cmm (130-400); Red Blood Count 3.64 10^6/uL (4.1-5.3); Red Cell Distribution Width 12.7 % (12.1-15.1); White Blood Count 9.3 10^3/uL (4.0-10.0)
[2021-10-21 17:10] LABS: Alanine Aminotransferase 8 U/L (0-33); Albumin Level 3.3 g/dL (3.5-5.2); Alkaline Phosphatase 120 IU/L (35-105); Aspartate Amino Transferase 15 U/L (0-32); Blood Urea Nitrogen 6 mg/dL (6-20); Calcium 8.8 mg/dL (8.5-10.5); Carbon Dioxide 21 mmol/L (22-29); Chloride 104 mmol/L (98-107); Globulin 3.1 g/dL (1.3-4.6); Glomerular Filtration Rate 192.9 mL/min (90-130); Glucose 87 mg/dL (65-115); Osmolality Calculated 279 mOsm/kg (285-295); Sodium 136 mmol/L (136-145); Total Bilirubin 0.4 mg/dL (0.15-1.2); Total Protein 6.4 g/dL (6.6-8.7)
[2021-10-21 17:14] LABS: Anion Gap 14.6 (5-19); Potassium 3.6 mmol/L (3.5-5.1)
[2021-10-21 17:31] LABS: Influenza A by IFA Negative (Negative); Influenza B by IFA Negative (Negative)
[2021-10-21 18:05] VITALS: BP 115/78; PULSE 74; RESP 16; O2SAT 97
== END 2021-10-21 18:07 | disposition home or self-care (01) ==
PROVIDERS: Emergency Provider Emergency Medicine; PCP Family Medicine
DX: O26.893 Other specified pregnancy related conditions, third trimester (principal); Z3A.32 32 weeks gestation of pregnancy; O99.333 Smoking (tobacco) complicating pregnancy, third trimester; F17.210 Nicotine dependence, cigarettes, uncomplicated; R05.9 Cough, unspecified; B97.89 Other viral agents as the cause of diseases classified elsewhere
CPT/HCPCS: 80053; 85025; 87804; 96360; 99283; J7030

== ENCOUNTER 2021-11-04 19:15 | Outpatient (CLI) | payer BC, MEDICAID, SELFPAY ==
[2021-11-04 19:30] VITALS: BP 134/81; PULSE 94
[2021-11-04 19:36] VITALS: RESP 16
[2021-11-04 20:19] VITALS: BMI 27.6
== END 2021-11-04 20:55 | disposition home or self-care (01) ==
LOC: OPOB 19:28 → OBGYN 19:29
PROVIDERS: PCP Family Medicine; Visit Provider Family Medicine
DX: O26.899 Other specified pregnancy related conditions, unspecified trimester (principal); Z3A.00 Weeks of gestation of pregnancy not specified; R10.9 Unspecified abdominal pain
CPT/HCPCS: 59025; 99211

== ENCOUNTER 2021-11-18 17:01 | Outpatient (CLI) | payer BC, MEDICAID, SELFPAY ==
[2021-11-18 17:15] VITALS: TEMP 35.9
[2021-11-18 17:17] VITALS: BP 131/70; PULSE 96
[2021-11-18 17:31] VITALS: BP 119/73; PULSE 93
[2021-11-18 17:47] VITALS: BP 120/79; PULSE 90
[2021-11-18 18:01] VITALS: BP 119/77; PULSE 95
[2021-11-18 18:21] VITALS: BMI 28.5
[2021-11-18 18:22] VITALS: BP 119/77; PULSE 95; RESP 18; TEMP 36.1
== END 2021-11-18 18:10 | disposition home or self-care (01) ==
LOC: OPOB 17:02 → OBGYN 17:13
PROVIDERS: PCP Family Medicine; Visit Provider Family Medicine
DX: O26.899 Other specified pregnancy related conditions, unspecified trimester (principal); Z3A.00 Weeks of gestation of pregnancy not specified; R10.9 Unspecified abdominal pain
CPT/HCPCS: 59025; 99211

== ENCOUNTER 2021-11-24 12:00 | Outpatient (CLI) | payer BC, MEDICAID, SELFPAY ==
[2021-11-24 12:00] VITALS: BMI 29.6
[2021-11-24 12:17] VITALS: BP 124/79; PULSE 91; TEMP 36.1
[2021-11-24 12:38] VITALS: BP 120/76; PULSE 87
[2021-11-24 12:57] VITALS: BP 130/89; PULSE 102
== END 2021-11-24 13:13 | disposition home or self-care (01) ==
LOC: OPOB 12:08 → OBGYN 12:11
PROVIDERS: Absent Provider Family Medicine; PCP Family Medicine; Visit Provider Family Medicine
DX: O26.899 Other specified pregnancy related conditions, unspecified trimester (principal); Z3A.00 Weeks of gestation of pregnancy not specified; R10.9 Unspecified abdominal pain
CPT/HCPCS: 59025; 99211

== ENCOUNTER 2021-11-30 14:58 | Inpatient (IN) | payer BC, MEDICAID, SELFPAY ==
[2021-11-30] VITALS (53 sets, daily range): BP systolic 106–170; BP diastolic 57–94; PULSE 56–122; TEMP 36.7–39.1; O2SAT 100; BMI 28.2
[2021-11-30] MEDS: lactated ringers 1,000 ML 999 ML IV ×2 (15:39→16:45)
[2021-11-30 16:06] LABS: Basophils % 0.2 %; Eosinophils % 0.2 %; Hematocrit 34.9 % (37.0-47.0); Hemoglobin 11.2 g/dL (11.5-15.3); Lymphocytes # 0.9 10^3/uL (0.8-4.8); Lymphocytes % 7.3 %; Mean Corpuscular HGB Conc 32.1 g/dL (30.0-36.0); Mean Corpuscular Hemoglobin 28.3 pg (28.0-34.0); Mean Corpuscular Volume 88.1 fl (81-99); Monocytes # 0.5 10^3/uL (0.2-0.9); Monocytes % 4.1 %; Neutrophils # 10.28 10^3/uL (1.8-7.7); Neutrophils % 87.7 %; Nucleated Red Blood Cells % 0 %; Platelet Count 127 10^3/cmm (130-400); Red Blood Count 3.96 10^6/uL (4.1-5.3); White Blood Count 11.7 10^3/uL (4.0-10.0)
[2021-11-30 16:23] LABS: Mean Platelet Volume 14.1 fL (7.4-10.4)
--- NOTE | 2021-11-30 17:02 | P.ANESASSM_ITS ---
Pre-Anesthetic Assessment Height/Weight: Height 1.65 m Pulse BP Pulse Ox 76 124/71 100 11/30/21 17:00 11/30/21 17:00 11/30/21 16:58 Familial anesthetic complications: None Was Beta Niranjan taken within 24 hours: N/A Was Clonidine taken within 24 hours: N/A Social No alcohol and No tobacco Exam alert, oriented x 3, clear to auscultation bilaterally and regular rate & rhythm Airway Submandibular: within normal limits Cervical ROM: within normal limits Mallampati: Class II Dentition: full History/ROS No significant history except as noted Anesthetic Plan ASA status: 2 Anesthesia: Regional (specify below) (Labor Epidural) Medications/Allergies Home Medications Medication Instructions Recorded Confirmed Last Taken Type PFC-rycw-GJ-omega 3-fat com #1 27 1 cap PO DAILY 10/21/21 11/04/21 11/23/21 20:00 History mg-1 mg-300 mg capsule Allergies Allergy/AdvReac Type Severity Reaction Status Date / Time amoxicillin [From Augmentin] Allergy ADR-Vomitin Verified 11/04/21 20:23 g azithromycin [From Zithromax] Allergy ADR-Vomitin Verified 11/04/21 20:23 g clavulanic acid Allergy ADR-Vomitin Verified 11/04/21 20:23 [From Augmentin] g metronidazole [From Flagyl] Allergy ALGY-Hives Verified 11/04/21 20:23 Current Medications Generic Name Dose Route Start Last Admin Trade Name Freq PRN Reason Stop Dose Admin Lactated Ringer's 1,000 mls @ 999 mls/hr 11/30/21 14:56 11/30/21 16:45 Lactated Ringers IV 999 mls/hr .Q1H1M PRN Administration Per L&D Rescitation Protocol Ropivacaine 200 mg in 100 mls @ 13 mls/hr 11/30/21 15:00 11/30/21 16:45 Naropin Premix EPIDURAL 13 mls/hr .Q7H42M QUIANA Administration Lactated Ringer's 1,000 mls @ 999 mls/hr 11/30/21 14:59 11/30/21 15:39 Lactated Ringers IV 999 mls/hr .Q1H1M PRN Administration See label comments [facility] Anesthesia Medical History No significant past medical history Surgical History H/O oral surgery Social History Smoking and tobacco status: current some day smoker Female Reproductive History Date of last menstrual period: 03/06/21 Data Anesthesia : 11/30/21 15:20 Short CBC 11/30/21 Range/Units 15:20 WBC 11.7 H (4.0-10.0) 10^3/uL Hgb 11.2 L (11.5-15.3) g/dL Hct 34.9 L (37.0-47.0) % MCV 88.1 (81-99) fl Plt Count 127 L (130-400) 10^3/cmm Neut % (Auto) 87.7 % Neut # (Auto) 10.28 H (1.8-7.7) 10^3/uL Cardiac Studies: No Data to Display
--- NOTE | 2021-11-30 17:03 | ANES.PROC ---
Anesthesia Procedures Procedure/Date: 11/30/21 Epidural: Time Out Performed: Yes Consents Signed: Procedure Consent Consent: requested by attending/covering physician, from patient, risks and benefits reviewed and patient agrees to proceed Lumbar Level: L3-L4 Epidural position: sitting Epidural procedure: sterile prep of area, 1% lidocaine to numb the area, 18 g needle, neg for paresthesia, test dose given, 1.5% xylocaine 1:200k epi, placed PCEA, no systemic response, sterile dressing applied and 0.2% Ropiavacaine @ mls/hr (13) Additional Comments: POLLO at 5cm, cath at 10cm, bolused 5mls of 2% lido
--- NOTE | 2021-11-30 17:58 | PM.OPHPUD ---
Labor & Delivery H&P Update Date of Procedure: November 30, 2021 Date H&P Performed: 11/30/21 Changes to previous documentation: The patient was rock consistently 3-5 times a minute. Her cervix became more effaced. Admission Diagnosis: 26-year-old 2 para 1-0-0-1 at 38 weeks estimated gestational age presenting in active labor Planned procedure: Spontaneous vaginal delivery Other information: The patient has had an unremarkable overall. She presented to the hospital today after having contractions. Her membranes were intact. Her labs were relatively unremarkable. Her blood type was A-. Her FI screen was negative. Her glucose screen was initially positive, but she passed her 3-hour glucose screen. She is rubella nonimmune. Her GBS status is negative. Remainder of her labs are within normal limits. Related Problem List Diagnoses (1) 38 weeks gestation of : I anticipate a routine labor and vaginal delivery.
[2021-11-30] MEDS: alum-mag-hydroxide-sime 30 mL UDC PO (19:42)
[2021-11-30] MEDS: dextrose 5%-lactated ringers 1,000 ML 125 ML IV (21:41)
[2021-11-30] MEDS: oxytocin 30 UNIT/500 ML BAG 600 UNIT IV (23:17)
--- NOTE | 2021-11-30 23:28 | P.PCNOB_ITS ---
Delivery Note: Date of delivery: November 30, 2021 Pre-delivery diagnoses: 1. 26-year-old 2 para 1-0-0-1 with an estimated gestational age of 38 weeks presenting in active labor Post-delivery diagnoses: Status post spontaneous vaginal delivery Procedure: Spontaneous vaginal delivery Delivering Physician: Darin Lane Estimated blood loss (mL): 150 Pre-Delivery Course: Patient presented to the hospital in active labor. An epidural was placed. An amniotomy was performed. She progressed to complete without difficulty. She did have a fever up to 102 prior to delivery of the . She has had an upper respiratory infection and has been coughing as well. Her membranes were ruptured about 5 hours prior to delivery. Delivery: DELIVERY: The patient progressed to complete without difficulty. She delivered a male with a weight of 7 pounds 13 ounces with Apgars of 8, 9. The baby was delivered from the DAMION position and placed on the mother's abdomen. The cord was then clamped and cut approximately 1 minute after delivery There was nuchal cord x2 that were both easily reduced prior to delivery of the body. There was no meconium. The placenta and 3 vessel cord were delivered intact shortly thereafter. The perineum and vaginal vault were carefully examined. No lacerations were noted. Both the mother and the baby were in stable condition. Post-Delivery Status: Good A&P Assessment and plan (1) Spontaneous vaginal delivery: I anticipate routine care. Due to her fever we will watch her condition for any reasons other than the obvious etiology of an upper respiratory tract infection. Status: Acute (2) 38 weeks gestation of : Status: Acute Coding Level of Care Code Acute Line Supervisor for Chg Fwd Diagnoses Spontaneous vaginal delivery O80 38 weeks gestation of Z3A.38
[2021-11-30] MEDS: acetaminophen 325 mg Tablet 650 MG PO (23:29)
[2021-12-01] VITALS (22 sets, daily range): BP systolic 125–164; BP diastolic 69–93; PULSE 60–96; RESP 16; TEMP 36.4–37.3
[2021-12-01] MEDS: HYDROcodone-acetaminophen 5-325 mg Tablet PO ×2 (03:23→17:08)
[2021-12-01] MEDS: benzocaine-menthol 78 gm Canister 1 SPRAY TOPICAL (03:24)
[2021-12-01] MEDS: lanolin oint 7 gm 1 APPLIC TOPICAL (03:24)
[2021-12-01] MEDS: prenatal vitamin Capsule 1 CAP PO (07:54)
[2021-12-01] MEDS: docusate sodium 100 mg Capsule PO ×2 (07:55→17:08)
[2021-12-01] MEDS: ibuprofen 800 mg tablet PO ×3 (07:55→20:34)
[2021-12-01 12:01] LABS: Hematocrit 31.2 % (37.0-47.0); Hemoglobin 10.1 g/dL (11.5-15.3); Mean Corpuscular HGB Conc 32.4 g/dL (30.0-36.0); Mean Corpuscular Hemoglobin 28.9 pg (28.0-34.0); Mean Corpuscular Volume 89.4 fl (81-99); Mean Platelet Volume 13.5 fL (7.4-10.4); Platelet Count 101 10^3/cmm (130-400); Red Blood Count 3.49 10^6/uL (4.1-5.3); Red Cell Distribution Width 13.1 % (12.1-15.1); White Blood Count 9.4 10^3/uL (4.0-10.0)
--- NOTE | 2021-12-01 12:05 | PM.OBGYPN ---
HOSPITAL ATTENDANT Subjective Subjective: Interval history: The patient is doing well. She initially breast-fed, but is now shifted to formula feeding. Her bleeding has been within normal limits. She is continuing to have a fair amount of cramping, but it is gradually improving. Labor: Station: 0 Amniotic Membrane Status: Intact Monitor Mode: External Contraction Pattern: Irregular Vitals/I&O/Wt Last Vital Signs Temp 97.6 F 12/01/21 10:00 Pulse 71 12/01/21 10:01 Resp 16 12/01/21 10:00 BP 125/69 12/01/21 10:01 Pulse Ox 100 11/30/21 17:18 11/30/21 12/01/21 12/01/21 22:59 06:59 14:59 Intake Total 100 / 100 Output Total 800 / 800 500 / 1300 600 / 600 Balance -800 / -800 -400 / -1200 -600 / -600 Weight last 48 hrs Weight 175 lb Physical Exam Narrative: The patient is alert. She appears comfortable. Her heart has a regular rate and rhythm with no murmurs appreciated. Lungs are clear to auscultation bilaterally. Her fundus is firm and below the umbilicus. Urinary Catheter Management: Yancey: Cath Placed During This Visit: yes Urinary Catheter Date of Insertion: 11/30/21 Urinary Catheter Time of Insertion: 17:10 Data : 12/01/21 11:35 A&P Assessment and plan (1) Status post vaginal delivery: I anticipate routine care. If all goes well, she should be discharged home tomorrow. Status: Acute Attestations Medical Necessity Statement*: Routine care. Coding Level of Care Code Acute Administrative Underwriter for Chg Fwd Diagnoses Status post vaginal delivery
[2021-12-02] VITALS (16 sets, daily range): BP systolic 112–167; BP diastolic 76–107; PULSE 59–76; RESP 16–20; TEMP 36.5–36.6
[2021-12-02] MEDS: HYDROcodone-acetaminophen 5-325 mg Tablet PO ×2 (00:56→07:50)
[2021-12-02] MEDS: HYDROcodone-acetaminophen 5-325 mg Tablet 1 TAB PO (05:33)
--- NOTE | 2021-12-02 07:11 | ANE.PACU2 ---
Inpatient post-anesthesia follow up: Airway intact: Yes Vital signs: Temperature 97.8 F Pulse Rate 62 Respiratory Rate 20 Blood Pressure 134/87 Pulse Oximetry 100 Oxygen Delivery Me thod Room Air Oxygen Flow Rate Fraction of Inspir ed Oxygen Hydration adequate: Yes Nausea and vomiting: No Pain level: 2 Mental status: Baseline
--- NOTE | 2021-12-02 07:34 | PM.OBGYDC ---
Discharge Providers WAREHOUSE COORDINATOR Date of Admission: 11/30/21 14:58 Date of Discharge: 12/02/21 Attending Provider at Admission: Darin Lane MD Attending Provider at Discharge: Darin Lane MD Primary Care Provider: Darin Lane MD Diagnoses at Discharge Discharge Diagnosis (1) Spontaneous vaginal delivery: Status: Acute (2) 38 weeks gestation of : Status: Acute (3) Thrombocytopenia affecting : Details from hospital stay: Check follow-up CBC at visit. Status: Acute Reason for Visit Reason for Visit: Contractions, light headed Hospital Course Hospital Course The patient presented to the hospital in active labor. She progressed to complete and had an unremarkable delivery of a healthy appearing term male infant. She did have a fever during the last couple hours of her labor. That resolved postdelivery. She also did have an upper respiratory tract infection as well. Postdelivery she did well. She did initially breast-feed, but quickly changed over to formula. Her bleeding was within normal limits. She had some difficulty with pain control, and she did have high blood pressures when her pain was not under control. By redirecting the patient using medication, her pain was manageable. Information Peripartum Data: Infant Delivery Method: Vaginal Physical Exam Narrative: The patient is alert. She appears comfortable. Her heart has a regular rate and rhythm with no murmurs appreciated. Lungs are clear to auscultation bilaterally. Her fundus is firm and below the umbilicus. Urinary Catheter Management: Yancey: Cath Placed During This Visit: yes Urinary Catheter Date of Insertion: 11/30/21 Urinary Catheter Time of Insertion: 17:10 Discharge Data Studies Completed and Pending Pending at discharge Category Date Time Status Complete Crossmatch Routine Lab 12/01/21 10:36 Results Rho D Immune Globulin Routine Lab 12/01/21 10:36 Results Type and Screen Routine Lab 12/01/21 10:36 Results Laboratory Results WBC 9.4 10^3/uL (4.0-10.0) 12/01/21 11:35 RBC 3.49 10^6/uL (4.1-5.3) L 12/01/21 11:35 Hgb 10.1 g/dL (11.5-15.3) L 12/01/21 11:35 Hct 31.2 % (37.0-47.0) L 12/01/21 11:35 MCV 89.4 fl (81-99) 12/01/21 11:35 MCH 28.9 pg (28.0-34.0) 12/01/21 11:35 MCHC 32.4 g/dL (30.0-36.0) 12/01/21 11:35 RDW 13.1 % (12.1-15.1) 12/01/21 11:35 Plt Count 101 10^3/cmm (130-400) L 12/01/21 11:35 MPV 13.5 fL (7.4-10.4) H 12/01/21 11:35 Neut % (Auto) 87.7 % 11/30/21 15:20 Lymph % (Auto) 7.3 % 11/30/21 15:20 [place] % (Auto) 4.1 % 11/30/21 15:20 Eos % (Auto) 0.2 % 11/30/21 15:20 Baso % (Auto) 0.2 % 11/30/21 15:20 Neut # (Auto) 10.28 10^3/uL (1.8-7.7) H 11/30/21 15:20 Lymph # (Auto) 0.9 10^3/uL (0.8-4.8) 11/30/21 15:20 [place] # (Auto) 0.5 10^3/uL (0.2-0.9) 11/30/21 15:20 Eos # (Auto) 0.0 10^3/uL (0.0-0.8) 11/30/21 15:20 Baso # (Auto) 0.0 10^3/uL (0.0-0.1) 11/30/21 15:20 Nucleated RBC % (auto) 0 % 11/30/21 15:20 Nucleated RBCs # 0.0 /100WBC 11/30/21 15:20 Blood Type A Negative 12/01/21 10:36 Rho(D) Type Negative 12/01/21 10:36 Antibody Screen Negative 12/01/21 10:36 Screen Negative (Negative) 12/01/21 11:35 Vitals Last Vital Signs Temp 97.8 F 12/02/21 04:45 Pulse 62 12/02/21 06:39 Resp 20 H 12/02/21 04:45 BP 134/87 12/02/21 06:39 Pulse Ox 100 11/30/21 17:18 Discharge Plan Discharge Patient Disposition: Home Condition: Stable Prescriptions: New ibuprofen 800 mg Tablet 800 mg PO TID Qty: 45 0RF hydrocodone-acetaminophen 5-325 mg Tablet 1 tab PO Q6H PRN (Reason: Moderate To Severe Pain) Qty: 10 0RF Continued RDS-hfmw-IX-omega 3-fat com #1 27-1-300 mg Capsule 1 cap PO DAILY 0RF Discharge Orders: Discharge Order (Routine); Ordered 12/02/21 Ordered By: Darin Lane Referrals: Darin Lane MD [Primary Care Provider] - 4-7 days (Please set up for 6-week follow-up as well. Schedule patient and baby at the same time. Finally have the patient have a CBC done when she follows up in my office in a week.) Discharge Diet: Usual diet Discharge Activity: Limit activity as instructed Discharge Attestations WAREHOUSE COORDINATOR Time Spent in Discharge Care*: greater than 30 min Coding Level of Care Code Acute Locker Room Attendant for Chg Fwd Diagnoses Spontaneous vaginal delivery O80 38 weeks gestation of Z3A.38 Thrombocytopenia affecting O99.119; D69.6
[2021-12-02] MEDS: docusate sodium 100 mg Capsule PO (08:54)
[2021-12-02] MEDS: prenatal vitamin Capsule 1 CAP PO (08:54)
[2021-12-02] MEDS: ibuprofen 800 mg tablet PO (08:54)
== END 2021-12-02 13:30 | disposition home or self-care (01) | DRG 806 ==
LOC: OPOB 14:59 → OBGYN 14:59
PROVIDERS: Admitting Provider Family Medicine; PCP Family Medicine; Visit Provider Family Medicine
DX: O69.81X0 Labor and delivery complicated by cord around neck, without compression, not applicable or unspecified (principal); O99.12 Other diseases of the blood and blood-forming organs and certain disorders involving the immune mechanism complicating childbirth; Z37.0 Single live birth; D69.6 Thrombocytopenia, unspecified; Z3A.38 38 weeks gestation of pregnancy
CPT/HCPCS: 12345; 36415; 36430; 51702; 59409; 85025; 85027; 85460; 86850; 86900; 90384; 99211; J2795

== ENCOUNTER 2022-04-24 16:03 | Emergency (ER) | payer BC, MEDICAID, SELFPAY ==
[2022-04-24 16:16] VITALS: BP 124/83; PULSE 78; RESP 16; TEMP 36.4; O2SAT 99
--- NOTE | 2022-04-24 17:07 | XRR_ITS ---
PROCEDURE INFORMATION: Exam: XR Chest Exam date and time: 04/24/2022 5:45 PM Age: 26 years old Clinical indication: Cough; Additional info: Cough, congestion TECHNIQUE: Imaging protocol: Radiologic exam of the chest. Views: 1 view. COMPARISON: CR XR chest 1V portable [id number] 04/10/2020 7:50 PM FINDINGS: Lungs: Unremarkable. No consolidation. Pleural spaces: Unremarkable. No pleural effusion. No pneumothorax. Heart/Mediastinum: Unremarkable. No cardiomegaly. Bones/joints: Unremarkable. XR/XR chest 1V portable [id number] IMPRESSION: No acute findings.
--- NOTE | 2022-04-24 17:41 | ED_ITS ---
HPI - General Adult General: Chief complaint: General Medical Stated complaint: congestion Time Seen by Provider: 04/24/22 17:29 History of Present Illness: 26-year-old female comes in today for complaints of cough and chest congestion for the last 3 days. Patient reports illness for about 1 week. Patient has had a history of a bronchitis or upper respiratory infection in the past which she has had to take antibiotics. Patient admits to smoking marijuana occasionally. Patient appears nontoxic. Patient appears in no acute distress. Associated symptoms: Deny chest pain Review of Systems Const: Denies: fever(s) ENMT: Reports: nasal discharge; Denies: throat pain Card: Denies: chest pain Resp: Reports: non-productive cough PFSH ED PFSH: Medical History No significant past medical history Surgical History H/O oral surgery Social History Smoking and tobacco status: current some day smoker Female Reproductive History: Date of last menstrual period: 03/06/21 Physical Exam Const: COMMON NORMALS: alert HENMT: COMMON NORMALS: normocephalic HEAD & SCALP: normocephalic Neck/C-Spine: COMMON NORMALS: full ROM Resp: COMMON NORMALS: normal respiratory effort AUSCULTATION: rhonchi Cardio: COMMON NORMALS: regular rate RATE: regular rate Extremity: COMMON NORMALS: normal to inspection Neuro: SENSORIUM/ORIENTATION: Yes alert Skin: COMMON NORMALS: turgor normal GENERAL SKIN EXAM: turgor normal Course Vital Signs: Vital signs: Vital Signs Temperature 97.5 F L 04/24/22 16:16 Pulse Rate 64 04/24/22 17:44 Respiratory Rate 17 04/24/22 17:44 Blood Pressure 130/85 04/24/22 17:44 Pulse Oximetry 99 04/24/22 17:44 Oxygen Delivery Me thod 04/24/22 16:16 [facility] - General Adult Medical Decision Making 26-year-old female comes in today with complaints of cough and chest congestion. On exam patient appears nontoxic. Patient has no acute distress. Auscultation of lung sounds note some mild anterior rhonchi. Good air movement throughout lung alegre. Differential diagnosis includes not limited to pneumonia, bronchitis, upper respiratory infection, seasonal allergies. Patient appears to have a mild case of bronchitis. We will go ahead and treat with 8 mg of dexamethasone orally and 100 mg of doxycycline orally. Patient will continue on doxycycline for the next 5 days. Recommend follow-up with primary care for worsening symptoms or return to ER for new concerns. Discharge Plan Discharge Patient Disposition: Home Clinical Impression: Bronchitis Condition: Stable Prescriptions: New doxycycline monohydrate 100 mg capsule 100 mg PO BID 5 Days Qty: 10 0RF No Action ibuprofen 800 mg Tablet 800 mg PO TID Qty: 45 0RF hydrocodone-acetaminophen 5-325 mg Tablet 1 tab PO Q6H PRN (Reason: Moderate To Severe Pain) Qty: 10 0RF QRW-boqs-BF-omega 3-fat com #1 27-1-300 mg Capsule 1 cap PO DAILY Discharge Orders: Discharge ED (Routine); Ordered 04/24/22 Ordered By: Bebo Bahena Referrals: Darin Lane MD [Primary Care Provider] - Discharge Diet: Usual diet Discharge Activity: Increase activity as tolerated Patient Instructions: Acute Bronchitis (ED) Activity Restrictions/Additional Instructions: Drink plenty of fluids. Use doxycycline 100 mg 2 times a day for the next 5 days. Avoid direct sunlight as the doxycycline may increases photosensitivity. Follow-up with primary care in 3 to 4 days for recheck. Return to ER for new concerns. Coding Level of Care Code ED Auto Radiator Mechanic for Kevin Parra
[2022-04-24 17:44] VITALS: BP 130/85; PULSE 64; RESP 17; O2SAT 99
[2022-04-24] MEDS: dexamethasone 4 mg Tablet 10 MG PO (18:15)
[2022-04-24] MEDS: doxycycline 100 mg Tablet PO (18:15)
== END 2022-04-24 18:17 | disposition home or self-care (01) ==
PROVIDERS: Emergency Provider Nurse Practitioner Family; PCP Family Medicine
DX: J40 Bronchitis, not specified as acute or chronic (principal); F17.200 Nicotine dependence, unspecified, uncomplicated
CPT/HCPCS: 71045; 99283; J8540

== ENCOUNTER 2022-06-19 15:51 | Emergency (ER) | payer BC, MEDICAID, SELFPAY ==
[2022-06-19 16:17] VITALS: BP 106/68; PULSE 88; RESP 16; TEMP 36.7; O2SAT 98
--- NOTE | 2022-06-19 17:19 | ED_ITS ---
HPI - General Adult General: Chief complaint: General Medical Stated complaint: jaw pain, bruises Time Seen by Provider: 06/19/22 17:19 History of Present Illness: 27-year-old female comes in today with left jaw pain. Patient reports a history of TMJ syndrome. Patient appears nontoxic. Patient also reports some dental tenderness. Patient appears in mild pain. Review of Systems Const: Denies: fever(s) ENMT: Reports: dental pain (Left jaw pain) PFSH ED PFSH: Medical History No significant past medical history Surgical History H/O oral surgery Social History Smoking and tobacco status: current some day smoker Female Reproductive History: Date of last menstrual period: 03/06/21 Physical Exam Const: COMMON NORMALS: alert HENMT: COMMON NORMALS: normocephalic and TM's normal bilaterally HEAD & SCALP: normocephalic TYMPANIC MEMBRANE: TM's normal bilaterally MOUTH: other (Mild swelling and redness is noted to the left lower gingiva posteriorly) THROAT: posterior oropharynx normal OTHER: Normal range of motion of the jaw. Neck/C-Spine: COMMON NORMALS: full ROM Resp: COMMON NORMALS: normal respiratory effort Cardio: COMMON NORMALS: regular rate RATE: regular rate Extremity: COMMON NORMALS: normal to inspection Neuro: SENSORIUM/ORIENTATION: Yes alert Skin: COMMON NORMALS: turgor normal GENERAL SKIN EXAM: turgor normal Course Vital Signs: Vital signs: Vital Signs Temperature 98.1 F 06/19/22 16:17 Pulse Rate 88 06/19/22 16:17 Respiratory Rate 16 06/19/22 16:17 Blood Pressure 106/68 06/19/22 16:17 Pulse Oximetry 98 06/19/22 16:17 Oxygen Delivery Me thod 06/19/22 16:17 [facility] - General Adult Medical Decision Making Patient comes in for evaluation of left lower jaw pain and TMJ joint tenderness. On exam patient moves jaw with minimal difficulty. Patient does have some redness in the posterior lower gingiva beyond the second molar. Patient does not know if she had her third molar removed. Differential diagnosis includes but not limited to impacted third molar, TMJ syndrome, dental infection. Will cover with doxycycline 100 mg twice a day for the next 7 days in case there is some mild infection there due to impacted third molar versus dental carry. Suspect more likely patient has some TMJ syndrome and will place on diclofenac 75 mg twice a day for the next 10 days. Patient was recommended to follow-up with dentist for further evaluation and treatment. Return to ER for new concerns. Discharge Plan Discharge Patient Disposition: Home Clinical Impression: TMJ syndrome Condition: Stable Prescriptions: New doxycycline monohydrate 100 mg capsule 100 mg PO BID 7 Days Qty: 14 0RF diclofenac sodium 75 mg tablet,delayed release (DR/EC) 75 mg PO BID Qty: 20 0RF No Action ibuprofen 800 mg Tablet 800 mg PO TID Qty: 45 0RF hydrocodone-acetaminophen 5-325 mg Tablet 1 tab PO Q6H PRN (Reason: Moderate To Severe Pain) Qty: 10 0RF [id number] 3-fat com #1 27-1-300 mg Capsule 1 cap PO DAILY Discharge Orders: Discharge ED (Routine); Ordered 06/19/22 Ordered By: Bebo Bahena Referrals: Darin Lane MD [Primary Care Provider] - Discharge Diet: Usual diet Discharge Activity: Increase activity as tolerated Patient Instructions: Temporomandibular Disorder (ED) Activity Restrictions/Additional Instructions: Activity as tolerated. Take diclofenac 75 mg twice a day for the next 10 days for inflammation and pain. Use doxycycline to cover for secondary bacterial infection. I believe you actually have some inflammation of the joint which often can be arthritic in nature. I would recommend follow-up with dental housekeeper child care for further evaluation to rule out impacted third molar. No signs of severe infection were noted. Drink plenty of water with medication. Return to ED for new concerns or worsening symptoms. Coding Level of Care Code ED Information Technology Consultant for Kevin Parra
[2022-06-19] MEDS: doxycycline 100 mg Tablet PO (17:45)
[2022-06-19] MEDS: diclofenac 75 mg DR Tablet PO (18:19)
== END 2022-06-19 18:20 | disposition home or self-care (01) ==
PROVIDERS: Emergency Provider Nurse Practitioner Family; PCP Family Medicine
DX: M26.609 Unspecified temporomandibular joint disorder, unspecified side (principal)
CPT/HCPCS: 99283

== ENCOUNTER 2022-07-22 11:22 | Emergency (ER) | payer BC, MEDICAID, SELFPAY ==
[2022-07-22 11:34] VITALS: PULSE 80; RESP 16; O2SAT 97
--- NOTE | 2022-07-22 12:20 | W.ED.ANIMALB ---
HPI - Animal Bite General: Chief Complaint: Animal Bite Stated Complaint: Left index finger lac Time Seen by Provider: 07/22/22 11:29 History of Present Illness: 27 yo female patient presents with a dog bite left index finger. Pt states dog shots are UTD and she is not concerned about behavior this was a provoked bite. Pt denies any numbness or tingling. Tetanus is up to date Associated symptoms: Deny chills, diaphoresis, fever(s), headache(s) or syncope Review of Systems Const: Denies: fever(s), chills, body aches, change in appetite, change in weight, fatigue, malaise or diaphoresis Eyes: Denies: change in vision, blurry vision, blind spots, photophobia, eye discomfort, eye discharge, eye redness, floaters or seeing flashes ENMT: Denies: throat pain, uvular edema, enlarged tonsils, odynophagia, hoarseness, mouth pain, swelling of lips/tongue, oral sores, bleeding gums, dental pain, dry mouth, ear or mastoid pain, ear discharge, change in hearing, tinnitus, disequilibrium, nasal discharge, nasal congestion, post nasal drip or sinus pain Card: Denies: chest pain, palpitations, irregular heart rhythm, edema, swelling of feet/ankles, lightheadedness, syncope, pre-syncope, dyspnea on exertion, orthopnea, leg pain with exertion or acrocyanosis Resp: Denies: dyspnea, productive cough, non-productive cough, wheezing, stridor, pain on inspiration, change in phlegm color, hemoptysis or chest congestion GI: Denies: abdominal pain, nausea, vomiting, hematemesis, dysphagia, diarrhea, constipation, GI cramping, change in bowel habits or rectal pain : Denies: flank pain, difficulty voiding, dysuria, urinary frequency, urinary urgency, urinary hesitancy or hematuria Musc: Denies: neck pain, back pain, extremity pain, extremity swelling, joint pain, joint swelling, joint redness, joint warmth or deformity Skin/Breast: Reports: other (puncture marl to distal portion of left 2nd digit); Denies: rash, pruritus, erythema, sores, new lesions, changes in skin color or dry skin Neuro: Denies: headache(s), numbness in extremities, weakness in extremities, sensory changes, lack of coordination, difficulty walking, frequent falls, dizziness, vertigo, confusion, behavioral changes, Slurred speech present, difficulty communicating thoughts or seizure-like activity Psych: Denies: anxiety, depression, suicidal ideation or homicidal ideation Endo: Denies: polyuria, polydipsia, tired all the time, cold intolerance, excessive sweating, flushing, hot flashes or heat intolerance Ghulam/Lymph: Denies: easy bruising, easy bleeding, petechiae, purpura, enlarged lymph nodes or tender lymph nodes All/Imm: Denies: urticaria, throat swelling, tongue swelling, facial swelling, acute wheezing or itchy eyes PFSH ED PFSH: Medical History No significant past medical history Surgical History H/O oral surgery Social History Smoking and tobacco status: current some day smoker Female Reproductive History: Date of last menstrual period: 03/06/21 Physical Exam Const: COMMON NORMALS: no acute distress, patient oriented x3 and no limitations HENMT: THROAT: no uvular edema Extremity: OTHER: pucture wound to distal portion of left second digit pt is NVi distally Neuro: COMMON NORMALS: patient oriented x3 Course Vital Signs: Vital signs: Vital Signs Pulse Rate 80 07/22/22 11:34 Respiratory Rate 16 07/22/22 11:34 Pulse Oximetry 97 07/22/22 11:34 Oxygen Delivery Me thod 07/22/22 11:34 MDM - Animal Bite Medical Decision Making Patient is well appearing non toxic and in no acute distress. 27 yo female patient presents with a dog bite left index finger. Pt states dog shots are UTD and she is not concerned about behavior this was a provoked bite. Pt denies any numbness or tingling. Tetanus is up to date. Pt is NVI distally to injury. Wound was cleansed irrigated and dressed. No suture repair required. Will start on antibiotics Differential Diagnosis Likely bite by animal, dog bite and rabies contact Discharge Plan Discharge Patient Disposition: Home Clinical Impression: Dog bite Condition: Stable Prescriptions: New doxycycline hyclate 100 mg capsule 100 mg PO BID 10 Days Qty: 20 0RF No Action ibuprofen 800 mg Tablet 800 mg PO TID Qty: 45 0RF hydrocodone-acetaminophen 5-325 mg Tablet 1 tab PO Q6H PRN (Reason: Moderate To Severe Pain) Qty: 10 0RF diclofenac sodium 75 mg tablet,delayed release (DR/EC) 75 mg PO BID Qty: 20 0RF [id number] 3-fat com #1 27-1-300 mg Capsule 1 cap PO DAILY Discharge Orders: Discharge ED (Routine); Ordered 07/22/22 Ordered By: Ilana Ulrich Referrals: Darin Lane MD [Primary Care Provider] - Discharge Diet: Advance as tolerated Discharge Activity: Increase activity as tolerated Patient Instructions: Animal Bites - Adult, Opioid Safety, Pain Management Activity Restrictions/Additional Instructions: Keep wound clean and dry Take medications as prescribed Please return to the ER with any worsening of symptoms as provided on discharge papers Coding Level of Care Code ED Business Planning Director for Kevin Parra
== END 2022-07-22 12:43 | disposition home or self-care (01) ==
PROVIDERS: Emergency Provider Registered Nurse; PCP Family Medicine
DX: S61.251A Open bite of left index finger without damage to nail, initial encounter (principal); W54.0XXA Bitten by dog, initial encounter; F17.210 Nicotine dependence, cigarettes, uncomplicated
CPT/HCPCS: 99283

== ENCOUNTER 2022-07-23 15:29 | Emergency (ER) | payer BC, MEDICAID, SELFPAY ==
[2022-07-23 15:38] VITALS: BP 123/77; PULSE 83; RESP 16; TEMP 37.2; O2SAT 98
--- NOTE | 2022-07-23 15:48 | XRR_ITS ---
PROCEDURE INFORMATION: Exam: XR Left Hand Exam date and time: 07/23/2022 3:58 PM Age: 27 years old Clinical indication: Injury or trauma; Other: Dog bite; Index finger; Right TECHNIQUE: Imaging protocol: Radiologic exam of the Left hand. Views: 3 or more views. COMPARISON: No relevant prior studies available. FINDINGS: Bones/joints: Normal. No fracture or malalignment. Joint surfaces preserved. Soft tissues: Normal. XR/XR hand LT min 3V* [id number] IMPRESSION: Normal examination right hand.
--- NOTE | 2022-07-23 17:40 | ED_ITS ---
HPI - Extremity Problem General: Chief complaint: Extremity Injury, Upper Stated complaint: trauma to index finger to left hand Time Seen by Provider: 07/23/22 16:07 History of Present Illness: 27 yo female patient presents with a dog bite left index finge that occured yesterday was seen in ER and started on antibiotics. Pt states today she slammed her same finger in car door. .?.? Pt denies any numbness or tingling.? Tetanus is up to date Associated symptoms: Deny fever(s) or rash Review of Systems Const: Denies: fever(s), chills, body aches, change in appetite, change in weight, fatigue, malaise or diaphoresis Musc: Denies: neck pain, back pain, joint pain, joint swelling, joint redness, joint warmth or deformity Skin/Breast: Denies: rash, pruritus, erythema, sores, new lesions, changes in skin color or dry skin Neuro: Denies: headache(s), numbness in extremities, weakness in extremities, sensory changes, lack of coordination, difficulty walking, frequent falls, dizziness, vertigo, confusion, behavioral changes, Slurred speech present, difficulty communicating thoughts or seizure-like activity Psych: Denies: anxiety, depression, suicidal ideation or homicidal ideation [facility] ED PFSH: Medical History No significant past medical history Surgical History H/O oral surgery Social History Smoking and tobacco status: current some day smoker Female Reproductive History: Date of last menstrual period: 03/06/21 Physical Exam Const: COMMON NORMALS: no acute distress, average body habitus, patient oriented x3, no limitations, healthy appearing, alert and well nourished Extremity: NARRATIVE EXTREMITY EXAM: pt has swelling to the second digit on left hand. Pt has Limited ROM due to pain but is NVI distally Neuro: COMMON NORMALS: patient oriented x3 SENSORIUM/ORIENTATION: Yes alert Course Vital Signs: Vital signs: Vital Signs Temperature 98.9 F 07/23/22 15:38 Pulse Rate 83 07/23/22 15:38 Respiratory Rate 16 07/23/22 15:38 Blood Pressure 123/77 07/23/22 15:38 Pulse Oximetry 98 07/23/22 15:38 MDM - Extremity (Nontraumatic) Medical Decision Making Patient is well appearing non toxic and in no acute distress. 27 yo female patient presents with a dog bite left index finge that occured yesterday was seen in ER and started on antibiotics. Pt states today she slammed her same finger in car door. .?.? Pt denies any numbness or tingling.? Tetanus is up to date xray does not reveal any fractures or dislocations pt is NVI distally Pt to continue antibiotics. Return precautions advised Medical Records fracture, dislocation, abscess, cellulitis, Lab Data Radiology Impressions Hand X-Ray 07/23/22 15:48 IMPRESSION: Normal examination right hand. ADDENDUM: 07/23/22 [id number] Please note that the examination performed was of the right hand but was listed the on the work list as a left hand exam. Discharge Plan Discharge Patient Disposition: Home Clinical Impression: Finger sprain Condition: Stable Prescriptions: No Action ibuprofen 800 mg Tablet 800 mg PO TID Qty: 45 0RF hydrocodone-acetaminophen 5-325 mg Tablet 1 tab PO Q6H PRN (Reason: Moderate To Severe Pain) Qty: 10 0RF diclofenac sodium 75 mg tablet,delayed release (DR/EC) 75 mg PO BID Qty: 20 0RF [id number]-[id number]-SI-omega 3-fat com #1 27-1-300 mg Capsule 1 cap PO DAILY doxycycline hyclate 100 mg capsule 100 mg PO BID 10 Days Qty: 20 0RF Discharge Orders: Discharge ED (Routine); Ordered 07/23/22 Ordered By: Ilana Ulrich Referrals: Darin Lane MD [Primary Care Provider] - Discharge Diet: Advance as tolerated Discharge Activity: Increase activity as tolerated Patient Instructions: Finger Sprain (ED), Opioid Safety, Pain Management Activity Restrictions/Additional Instructions: Wear finger splint as discussed Please follow discharge instructions Follow up with PCP if no improvement in 1 week Coding Level of Care Code ED Hospice Music Therapist for Kevin Parra
[2022-07-23 17:55] VITALS: BP 117/80; PULSE 76; RESP 13; O2SAT 99
== END 2022-07-23 18:03 | disposition home or self-care (01) ==
PROVIDERS: Emergency Provider Registered Nurse; PCP Family Medicine
DX: S63.611A Unspecified sprain of left index finger, initial encounter (principal); F17.210 Nicotine dependence, cigarettes, uncomplicated; W23.0XXA Caught, crushed, jammed, or pinched between moving objects, initial encounter
CPT/HCPCS: 73130; 99283

== ENCOUNTER 2022-09-30 21:51 | Emergency (ER) | payer BC, MEDICAID, SELFPAY ==
[2022-09-30 22:00] VITALS: BP 111/76; PULSE 65; RESP 14; TEMP 36.4; O2SAT 97; BMI 23.6
--- NOTE | 2022-09-30 22:04 | ED_ITS ---
HPI - Headache General: Chief Complaint: Headache Stated Complaint: migraine, dizzy, n/v Time Seen by Provider: 09/30/22 21:54 Source: patient Mode of arrival: ambulatory Limitations: no limitations History of Present Illness: Patient is a 27-year-old female who is well-known to me from previous ED visits here for complaints of a headache that started today. Patient states she is also having sinus pain and pressure and feels slightly dizzy. Patient states she does not have a history of migraines but does have a family history. She is not having any visual changes. She denies slurred speech or extremity weakness/tingling/numbness. No trouble articulating or ambulating. She has not been running fevers. No sore throat or difficulty swallowing. MD elicited complaint: headache Onset (ago): hour(s) Onset description: gradually Location: facial Severity: severe Quality & Timing: pressure Exacerbating factors: light Relieving factors: nothing Associated symptoms: Reports other (sinus pain/pressure); Deny chest pain, confusion, fever(s), malaise, nausea or vomiting Treatments prior to arrival: none Review of Systems Const: Denies: fever(s), chills, body aches, fatigue or malaise Eyes: Reports: photophobia; Denies: change in vision, blurry vision, eye discomfort, eye discharge, floaters or seeing flashes ENMT: Reports: nasal congestion and sinus pain; Denies: throat pain, enlarged tonsils, odynophagia, swelling of lips/tongue, oral sores, ear or mastoid pain, ear discharge, nasal discharge or post nasal drip Card: Denies: chest pain Resp: Denies: dyspnea, productive cough or non-productive cough GI: Denies: nausea or vomiting Musc: Denies: neck pain Neuro: Reports: headache(s); Denies: numbness in extremities, weakness in extremities, sensory changes, difficulty walking, dizziness, confusion, behavioral changes or Slurred speech present All/Imm: Denies: facial swelling or seasonal rhinorrhea PFSH ED PFSH: Medical History No significant past medical history Surgical History H/O oral surgery Social History Smoking and tobacco status: current some day smoker Female Reproductive History: Date of last menstrual period: 09/20/22 Physical Exam Const: COMMON NORMALS: no acute distress, average body habitus, patient oriented x3, no limitations, healthy appearing, alert and well nourished GENERAL APPEARANCE: cooperative ORIENTATION/CONSCIOUSNESS: Yes awake, Yes oriented to person, Yes oriented to place and Yes oriented to time HENMT: COMMON NORMALS: normocephalic, atraumatic, hearing grossly normal bilaterally, external ears normal, EAC's normal, TM's normal bilaterally, Normal external nose present, Normal nasal mucous membranes and turbinates present, moist oral mucous membranes and oropharynx normal HEAD & SCALP: normal to inspection, normocephalic and atraumatic FACE & SINUS: normal facial exam and sinus tenderness NOSE: Normal external nose present and Normal nasal mucous membranes and turbinates present EXTERNAL EAR: Yes external ears normal EXTERNAL AUDITORY CANAL: EAC's normal TYMPANIC MEMBRANE: TM's normal bilaterally THROAT: posterior oropharynx normal, tonsils normal and uvula midline Eye: COMMON NORMALS: Equal, round and reactive pupils present, EOMs intact bilaterally and conjunctivae normal CONJUNCTIVA: Yes conjunctivae normal PUPIL: Yes Equal, round and reactive pupils present Neck/C-Spine: COMMON NORMALS: full ROM, no lymphadenopathy and no meningeal signs Neuro: [place]AMA COMA SCALE: document GCS findings [place] coma scale eye opening: Spontaneous [place] coma scale verbal response: Orientated [place] coma scale motor response: Obey commands [place] coma scale total score: 15 COMMON NORMALS: patient oriented x3, CN's II-XII intact bilaterally, moves all extremities, no focal motor deficits, no sensory deficits noted and gait normal SENSORIUM/ORIENTATION: Yes alert, Yes oriented to person, Yes oriented to place and Yes oriented to time MENINGEAL SIGNS: Yes no meningeal signs Course Vital Signs: Vital signs: Vital Signs Temperature 97.6 F 09/30/22 22:00 Pulse Rate 65 09/30/22 22:00 Respiratory Rate 14 09/30/22 22:00 Blood Pressure 111/76 09/30/22 22:00 Pulse Oximetry 97 09/30/22 22:00 Oxygen Delivery Me thod 09/30/22 22:00 MDM - Headache Medical Decision Making Patient rated her headache at a 10/10 upon arrival to the ED. After IV medications she now says she is at a 2/10 and feels comfortable going home. Discussed conservative treatment for sinusitis at home. Return ED precautions given. Discharge Plan Discharge Patient Disposition: Home Clinical Impression: Sinus headache Condition: Stable Prescriptions: No Action ibuprofen 800 mg Tablet 800 mg PO TID Qty: 45 0RF hydrocodone-acetaminophen 5-325 mg Tablet 1 tab PO Q6H PRN (Reason: Moderate To Severe Pain) Qty: 10 0RF diclofenac sodium 75 mg tablet,delayed release (DR/EC) 75 mg PO BID Qty: 20 0RF [id number] 3-fat com #1 27-1-300 mg Capsule 1 cap PO DAILY Discharge Orders: Discharge ED (Routine); Ordered 09/30/22 Ordered By: Mary Hernandez Referrals: Darin Lane MD [Primary Care Provider] - Coding Level of Care Code ED Land Inspector for Kevin Parra
[2022-09-30] MEDS: diphenhydrAMINE 50 mg/mL SDV 1mL IVP (23:01)
[2022-09-30] MEDS: ondansetron 2 mg/ML SDV 2 mL 4 MG IVP (23:01)
[2022-09-30] MEDS: ketorolac 30 mg/mL INJ IVP (23:02)
[2022-09-30] MEDS: dexamethasone 10 mg/mL INJ 6 MG IVP (23:04)
== END 2022-10-01 00:43 | disposition home or self-care (01) ==
PROVIDERS: Emergency Provider Physician Assistant; PCP Family Medicine
DX: G44.89 Other headache syndrome (principal); F17.210 Nicotine dependence, cigarettes, uncomplicated
CPT/HCPCS: 96374; 96375; 99284; J1100; J1200; J1885; J2405

== ENCOUNTER 2022-10-23 07:50 | Emergency (ER) | payer BC, MEDICAID, SELFPAY ==
[2022-10-23 07:57] VITALS: BP 112/67; PULSE 83; RESP 14; TEMP 36.7; O2SAT 96; BMI 24.2
[2022-10-23 08:00] VITALS: BP 112/67; PULSE 82; RESP 18; O2SAT 96
--- NOTE | 2022-10-23 08:06 | ED_ITS ---
HPI - General Adult General: Chief complaint: General Medical Stated complaint: cough, swollen throat Time Seen by Provider: 10/23/22 07:52 Source: patient Mode of arrival: ambulatory History of Present Illness: 27-year-old female comes in complaining with sore throat. She relates several office and doctors visits she has had over the last months was diagnosed with bronchitis sinus infection and is taking various medications. She took some antihistamines for period of time as well as still having a sore throat cough symptoms. No fever sweats or chills cough is nonproductive. She is taking allergy meds at home with no relief of symptoms she reports having dry heaves each morning. Severity: mild Relieving factors: none Exacerbating factors: none Associated symptoms: Reports cough, decreased appetite, malaise and nausea; Deny chest pain, confusion, diaphoresis, dyspnea, fevers/chills, headache(s), rash, palpitations, seizures, short of breath, syncope, vomiting or weakness Review of Systems Const: Reports: malaise; Denies: fever(s), chills, fatigue or diaphoresis ENMT: Reports: throat pain, nasal discharge and nasal congestion; Denies: ear or mastoid pain Card: Denies: chest pain, palpitations or syncope Resp: Denies: dyspnea GI: Reports: nausea; Denies: abdominal pain or vomiting : Denies: flank pain, difficulty voiding, dysuria, urinary frequency or urinary urgency Musc: Denies: neck pain or back pain Skin/Breast: Denies: rash Neuro: Denies: headache(s) or confusion PFS ED PFSH: Medical History No significant past medical history Surgical History H/O oral surgery Social History Smoking and tobacco status: current some day smoker Physical Exam Const: COMMON NORMALS: no acute distress GENERAL APPEARANCE: cooperative and comfortable ORIENTATION/CONSCIOUSNESS: Yes awake, Yes oriented to person, Yes oriented to place and Yes oriented to time HENMT: COMMON NORMALS: normocephalic, atraumatic and hearing grossly normal bilaterally HEAD & SCALP: normocephalic and atraumatic THROAT: posterior oropharynx abnormal edema, erythema and exudates Resp: COMMON NORMALS: normal respiratory effort, No retractions, No use of accessory muscles and clear to auscultation bilaterally AUSCULTATION: clear to auscultation bilaterally Cardio: COMMON NORMALS: regular rate, regular rhythm and No murmurs present (Cardio) RATE: regular rate RHYTHM: regular rhythm GI: COMMON NORMALS: Soft to palpation and No hepatosplenomegaly present AUSCULTATION: Yes normoactive bowel sounds PALPATION: Yes Soft to palpation, No Tenderness to palpation present (GI), No Guarding due to palpation present (GI) and Yes No hepatosplenomegaly present Extremity: COMMON NORMALS: normal to inspection, capillary refill normal, no clubbing, cyanosis or edema, no calf tenderness and no pedal edema Neuro: SENSORIUM/ORIENTATION: Yes oriented to person, Yes oriented to place and Yes oriented to time Skin: COMMON NORMALS: no rashes or lesions noted GENERAL SKIN EXAM: no rashes or lesions noted Course Vital Signs: Vital signs: Vital Signs Temperature 98.0 F 10/23/22 07:57 Pulse Rate 80 10/23/22 10:27 Respiratory Rate 13 10/23/22 10:27 Blood Pressure 116/62 10/23/22 10:27 Pulse Oximetry 95 10/23/22 10:27 Oxygen Delivery Me thod 10/23/22 08:00 MDM - General Adult Medical Decision Making Moderate exudate on posterior pharyngeal wall strep and Monospot are negative no significant submandibular length lymphadenopathy. Discharge home prednisone taper and follow-up with primary care as needed Medical Records I reviewed the patient's medical records. Lab Data I reviewed the patient's lab results. Laboratory Results Monoscreen Negative (Negative) 10/23/22 08:20 Group A Strep Rapid Negative (Negative) 10/23/22 09:12 Discharge Plan Discharge Patient Disposition: Home Clinical Impression: Pharyngitis Condition: Stable Prescriptions: New Medrol ([place]) 4 mg tablets,dose pack See Rx Instructions .ROUTE .COMPLEX Qty: 21 0RF Rx Instructions: orally per package directions No Action ibuprofen 200 mg Capsule 400 mg PO Q6H PRN (Reason: Pain) citalopram 20 mg tablet 20 mg PO DAILY Xyzal 5 mg Tablet 5 mg PO DAILY Discharge Orders: Discharge ED (Routine); Ordered 10/23/22 Ordered By: Victoriano Vivas Referrals: Darin Lane MD [Primary Care Provider] - Patient Instructions: Opioid Safety, Pain Management Activity Restrictions/Additional Instructions: You are seen today for pharyngitis your strep and mild test were negative. Recommend a course of antibiotics if symptoms persist follow-up with your primary care doctor or ear nose and throat physician. Coding Level of Care Code ED Banquet Houseperson for Kevin Parra
[2022-10-23 08:58] LABS: Monoscreen Negative (Negative)
[2022-10-23 09:41] LABS: Rapid Strep A Test Negative (Negative)
[2022-10-23 10:27] VITALS: BP 116/62; PULSE 80; RESP 13; O2SAT 95
== END 2022-10-23 10:34 | disposition home or self-care (01) ==
PROVIDERS: Emergency Provider Family Medicine; PCP Family Medicine
DX: J02.9 Acute pharyngitis, unspecified (principal); F17.210 Nicotine dependence, cigarettes, uncomplicated
CPT/HCPCS: 36415; 86308; 87081; 87880; 99283

== ENCOUNTER 2022-12-26 16:03 | Emergency (ER) | payer BC, MEDICAID, SELFPAY ==
[2022-12-26 16:44] VITALS: BP 113/75; PULSE 95; RESP 16; TEMP 36.3; O2SAT 97; BMI 25.0
--- NOTE | 2022-12-26 18:01 | XRR_ITS ---
PROCEDURE INFORMATION: Exam: XR Chest Exam date and time: 12/26/2022 6:05 PM Age: 27 years old Clinical indication: Cough; Additional info: Cough, exposed to mold TECHNIQUE: Imaging protocol: Radiologic exam of the chest. Views: 1 view. COMPARISON: CR XR chest 1V portable [id number] 04/24/2022 5:45 PM FINDINGS: Lungs: Unremarkable. No consolidation. Pleural spaces: Unremarkable. No pleural effusion. No pneumothorax. Heart/Mediastinum: Unremarkable. No cardiomegaly. Bones/joints: Unremarkable. XR/XR chest 1V portable [id number] IMPRESSION: No acute findings.
[2022-12-26] MEDS: dexamethasone 10 mg/mL INJ IM (18:17)
--- NOTE | 2022-12-26 18:24 | W.ED.GENADLT ---
HPI - General Adult General: Chief complaint: General Medical Stated complaint: congestion, mold exposure Time Seen by Provider: 12/26/22 17:52 Source: patient Mode of arrival: ambulatory Limitations: no limitations History of Present Illness: 27-year-old female states she had some cough congestion over the last 2 months. States she has had allergies she has been taking Ariana with minimal relief. She is in no distress here denies any fevers states that she does have mold in the air conditioning unit in her house. She denies any vomiting or diarrhea. Denies any worsening proving factors. Associated symptoms: Deny chest pain, dyspnea, headache(s), nausea, rash or vomiting Review of Systems Const: Denies: fever(s) or chills ENMT: Denies: throat pain Card: Denies: chest pain Resp: Reports: non-productive cough; Denies: dyspnea GI: Denies: abdominal pain, nausea or vomiting Musc: Denies: neck pain or back pain Skin/Breast: Denies: rash Neuro: Denies: headache(s) PFSH ED PFSH: Medical History No significant past medical history Surgical History H/O oral surgery Social History Smoking and tobacco status: current some day smoker Physical Exam Const: COMMON NORMALS: no acute distress, patient oriented x3 and healthy appearing HENMT: COMMON NORMALS: normocephalic and atraumatic HEAD & SCALP: normocephalic and atraumatic Neck/C-Spine: COMMON NORMALS: full ROM and supple Chest: COMMONS NORMALS: normal inspection of the chest and normal palpation of entire chest wall Resp: COMMON NORMALS: normal respiratory effort, No retractions, No use of accessory muscles and clear to auscultation bilaterally AUSCULTATION: clear to auscultation bilaterally Cardio: COMMON NORMALS: regular rate, regular rhythm and No murmurs present (Cardio) RATE: regular rate RHYTHM: regular rhythm GI: INSPECTION: Yes normal to inspection Extremity: COMMON NORMALS: normal to inspection and full ROM Neuro: COMMON NORMALS: patient oriented x3, moves all extremities and no focal motor deficits Psych: COMMON NORMALS: mental status grossly normal, Normal thought process present and cooperative THOUGHT PROCESS: Normal thought process present Skin: COMMON NORMALS: no rashes or lesions noted and no wounds GENERAL SKIN EXAM: no rashes or lesions noted Course Vital Signs: Vital signs: Vital Signs Temperature 97.3 F L 12/26/22 16:44 Pulse Rate 95 12/26/22 16:44 Respiratory Rate 16 12/26/22 16:44 Blood Pressure 113/75 12/26/22 16:44 Pulse Oximetry 97 12/26/22 16:44 Oxygen Delivery Me thod Room Air 12/26/22 16:44 MDM - General Adult Medical Decision Making Patient presents here with cough congestion is going on for months did give her Decadron shot x-ray here is normal she is stable for discharge she is to follow-up with PCP and return if worsening. Medical Records I reviewed the patient's medical records. Imaging Data CXR: I personally reviewed and interpreted this imaging study as follows: My impression: no acute abnormality Discharge Plan Discharge Patient Disposition: Home Clinical Impression: Upper respiratory infection Condition: Stable Prescriptions: No Action ibuprofen 200 mg Capsule 400 mg PO Q6H PRN (Reason: Pain) citalopram 20 mg tablet 20 mg PO DAILY Xyzal 5 mg Tablet 5 mg PO DAILY Medrol ([place]) 4 mg tablets,dose pack See Rx Instructions .ROUTE .COMPLEX Qty: 21 0RF Rx Instructions: orally per package directions Discharge Orders: Discharge ED (Routine); Ordered 12/26/22 Ordered By: David Barcenas Referrals: Darin Lane MD [Primary Care Provider] - 1-3 days Discharge Diet: Advance as tolerated Discharge Activity: Resume usual activity Patient Instructions: Upper Respiratory Infection (ED) Coding Level of Care Code ED Papier Mache Molder for Kevin Parra
== END 2022-12-26 18:31 | disposition home or self-care (01) ==
PROVIDERS: Emergency Provider Emergency Medicine; PCP Family Medicine
DX: J06.9 Acute upper respiratory infection, unspecified (principal)
CPT/HCPCS: 71045; 96372; 99284; J1100

== ENCOUNTER 2023-01-08 12:59 | Emergency (ER) | payer BC, MEDICAID, SELFPAY ==
[2023-01-08 13:07] VITALS: BP 115/74; PULSE 107; RESP 16; TEMP 36.9; O2SAT 98; BMI 24.3
--- NOTE | 2023-01-08 13:19 | ED_ITS ---
HPI - Ear Problem General: Chief complaint: Ear Stated complaint: pain in ears, SOB, sore throat Time Seen by Provider: 01/08/23 13:12 History of Present Illness: 27-year-old lady with environmental allergies presented to emergency department for recurrent worsening of respiratory symptoms. She was apparently exposed to possible mold and had recurrent illness at a workplace which she has subsequently left. She was seen previously in the ER and also by primary care. Had initial treatment with steroids and some improvement however worsened again over the past few days specifically this morning. She notes ear pain, congestion, sore throat, nausea, shortness of breath, cough. Intensity symptoms is moderate. Course has persisted. No other specific changes in health, exacerbating, or alleviating factors identified. Location: bilateral Duration: constant Severity: moderate Relieving factors: nothing Exacerbating factors: nothing Context: recent swimming Discharge from ear: no Associated symptoms: Reports rhinorrhea and other; Denies ear or mastoid pain or external ear pain Review of Systems General: Reports: 10 or more systems reviewed and unremarkable except in HPI and below ENMT: Denies: ear or mastoid pain PFS ED PFSH: Medical History No significant past medical history Surgical History H/O oral surgery Social History Smoking and tobacco status: current some day smoker Physical Exam Const: COMMON NORMALS: alert GENERAL APPEARANCE: cooperative and well developed HENMT: COMMON NORMALS: normocephalic and atraumatic HEAD & SCALP: normocephalic and atraumatic THROAT: posterior oropharynx normal OTHER: No evidence of otitis externa or abnormality of either auditory canal. Mild str eak erythema on the right tympanic membrane. Left tympanic membrane with effusion and erythema. No evidence of perforation. No mastoid tenderness or evidence of anatomy distortion/deep infection. Posterior pharyngeal erythema without distortion of anatomy. Eye: COMMON NORMALS: conjunctivae normal CONJUNCTIVA: Yes conjunctivae normal SCLERA: sclerae normal Neck/C-Spine: COMMON NORMALS: supple GENERAL: Yes trachea midline Resp: COMMON NORMALS: normal respiratory effort EFFORT & INSPECTION: Yes able to speak in complete sentences AUSCULTATION: diminished lung sounds on the left in the lower lung alegre Cardio: COMMON NORMALS: regular rhythm RATE: tachycardic RHYTHM: regular rhythm GI: COMMON NORMALS: Soft to palpation PALPATION: Yes Soft to palpation and No Tenderness to palpation present (GI) Extremity: GENERAL: Yes normal exam except as noted and No edema Neuro: COMMON NORMALS: moves all extremities SENSORIUM/ORIENTATION: Yes alert and No Orientation impaired Psych: COMMON NORMALS: mental status grossly normal and Normal thought process present THOUGHT PROCESS: Normal thought process present Course Vital Signs: Vital signs: Vital Signs Temperature 98.4 F 01/08/23 13:07 Pulse Rate 97 01/08/23 15:59 Respiratory Rate 17 01/08/23 15:59 Blood Pressure 108/72 01/08/23 15:59 Pulse Oximetry 99 01/08/23 15:59 Oxygen Delivery Me thod Room Air 01/08/23 13:07 MDM - Ear Medical Decision Making 27-year-old lady presenting with respiratory illness and acute pain. Exam as above. Nontoxic in appearance. COVID and strep negative. Chest x-ray with no lobar consolidation or pneumothorax. Clinical exam consistent with otitis media with possibility bronchitis with history of smoking. The results of ED evaluation were discussed with the patient including prescriptions and/or symptomatic cares (if applicable) including appropriate and responsible use, followup plan, and return precautions. The patient verbalized understanding and felt safe for discharge. Medical Records I reviewed the patient's medical records. Lab Data I reviewed the patient's lab results. Radiology Impressions Chest X-Ray 01/08/23 13:28 IMPRESSION: Unremarkable frontal portable chest x-ray. Laboratory Results SARS-CoV-2 Ag (Rapid) Negative (Negative) 01/08/23 13:55 Group A Strep Rapid Negative (Negative) 01/08/23 13:55 Discharge Plan Discharge Patient Disposition: Home Clinical Impression: Otitis media, Bronchitis Condition: Stable Prescriptions: New albuterol sulfate 90 mcg/actuation HFA aerosol inhaler 2 inh inhalation Q4H PRN (Reason: shortness of breath or wheezing) Qty: 8.5 0RF ondansetron 4 mg tablet,disintegrating 4 mg PO Q8H PRN (Reason: nausea and vomiting) Qty: 15 0RF No Action ibuprofen 200 mg Capsule 400 mg PO Q6H PRN (Reason: Pain) citalopram 20 mg tablet 20 mg PO DAILY Xyzal 5 mg Tablet 5 mg PO DAILY Medrol ([place]) 4 mg tablets,dose pack See Rx Instructions .ROUTE .COMPLEX Qty: 21 0RF Rx Instructions: orally per package directions Discharge Orders: Discharge ED (Routine); Ordered 01/08/23 Ordered By: Vasquez Triana Referrals: Darin Lane MD [Primary Care Provider] - Discharge Diet: Usual diet Discharge Activity: Increase activity as tolerated Patient Instructions: Ear Infection (ED), Acute Bronchitis (ED) Activity Restrictions/Additional Instructions: Thank you for visiting the emergency department. You were seen and evaluated for respiratory symptoms. The exact cause of your symptoms is unclear however it does appear that you have an ear infection and also likely bronchitis. Given prior symptoms and improvement followed by worsening this will be treated with antibiotics. I will prescribe steroids and antibiotics. Please also use your albuterol me tered-dose inhaler 2 puffs every 4 hours for 24 hours followed by 2 puffs every 6 hours for 24 hours followed by 2 puffs every 8 hours for 24 hours and then return to the normal schedule. You may use [id number] medications such as acetaminophen and ibuprofen for pain however please do not exceed the daily recommended dosage as listed on the packaging and please keep in mind that many namebrand medications contain the same active ingredients. Please avoid these medications if previously instructed to do so by another physician due to other underlying medical condition. Follow-up with your primary care provider. Return for worsening symptoms or anything else that you are concerned about and feel needs emergency department evaluation. Coding Level of Care Code ED Daily Release And Dupe Printer for Kevin Parra
--- NOTE | 2023-01-08 13:28 | XR_ITS ---
WS: [id number] EXAMINATION: XR chest 1V portable [id number] REASON FOR EXAM: sob COMPARISON: 12/26/2022 ORDER DATE: 01/08/2023 1:31 PM TECHNIQUE: A single, portable frontal chest x-ray was obtained. X-RAY FINDINGS: The lungs are clear. Pleural spaces are clear. No pleural effusions or pneumothorax. Cardiomediastinal silhouette is normal. No evidence for pulmonary edema. Soft tissue and osseous structures are unremarkable. No tubes or lines are present. XR/XR chest 1V portable [id number] IMPRESSION: Unremarkable frontal portable chest x-ray.
[2023-01-08] MEDS: ondansetron 2 mg/ML SDV 2 mL 4 MG IVP (14:01)
[2023-01-08] MEDS: dexamethasone 10 mg/mL INJ IVP (14:01)
[2023-01-08] MEDS: ketorolac 30 mg/mL INJ 15 MG IVP (14:01)
[2023-01-08] MEDS: sodium chloride 0.9% 1,000 ML 999 ML IV (14:02)
[2023-01-08 14:26] LABS: Rapid Strep A Test Negative (Negative)
[2023-01-08 14:36] LABS: SARS Covid-2 Antigen Negative (Negative)
[2023-01-08] MEDS: cefTRIAXone 1,000 MG in sodium chloride 0.9% (plus) 50 ML 100 MG IV (14:51)
[2023-01-08] MEDS: lidocaine 2% viscous 15 ML, aluminum-mag hydrox-simethicon 30 ML, sucralfate oral liq 1 GM PO (14:51)
--- NOTE | 2023-01-08 15:57 | PC.NURSE ---
ASSUMED CARE AT 1557
[2023-01-08 15:59] VITALS: BP 108/72; PULSE 97; RESP 17; O2SAT 99
== END 2023-01-08 16:01 | disposition home or self-care (01) ==
PROVIDERS: Emergency Provider Emergency Medicine; PCP Family Medicine
DX: H66.93 Otitis media, unspecified, bilateral (principal); Z72.0 Tobacco use; J40 Bronchitis, not specified as acute or chronic
CPT/HCPCS: 71045; 87081; 87426; 87880; 96361; 96365; 96375; 99284; J0696; J1100; J1885; J2405; J7030

== ENCOUNTER 2023-02-07 15:20 | Emergency (ER) | payer BC, MEDICAID, SELFPAY ==
[2023-02-07 15:23] VITALS: BP 115/72; PULSE 98; RESP 16; TEMP 36.7; O2SAT 98; BMI 24.2
--- NOTE | 2023-02-07 15:36 | XRR_ITS ---
PROCEDURE INFORMATION: Exam: XR Right Foot Exam date and time: 02/07/2023 3:41 PM Age: 27 years old Clinical indication: Injury or trauma; Other: Stepped on somthing in yard; Blunt trauma; Foot; Right; Additional info: Pain and swelling after stepping on something in yard TECHNIQUE: Imaging protocol: Radiologic exam of the right foot. Views: 3 or more views. COMPARISON: CR XR foot RT min 3V* [id number] 11/30/2019 1:38 PM FINDINGS: Bones/joints: Mild hallux valgus. No fracture or other acute abnormality. Joint spaces are normal. Soft tissues: No radiopaque foreign body. XR/XR foot RT min 3V* [id number] IMPRESSION: No acute findings.
--- NOTE | 2023-02-07 15:43 | W.ED.ANIMALB ---
HPI - Animal Bite General: Chief Complaint: Animal Bite Stated Complaint: right foot pain Time Seen by Provider: 02/07/23 15:31 History of Present Illness: Patient is a 27-year-old female comes to the ED with right foot pain. Patient says pain occurred just prior to arrival. She was outside walking in her yard barefoot. She stepped and felt a sharp stinging type pain in the bottom of her foot. Since then she has been having right foot pain and swelling. She did not see what she stepped on or what potentially stung her. Denies any other symptoms. She rates her pain currently a 5 out of 10 says it gets worse with any pressure or weightbearing when walking. There is a small red silvia on the bottom of her foot where she felt the sharp pain. Patient is up-to-date on tetanus. Associated symptoms: Deny chills, fever(s) or headache(s) Review of Systems Const: Denies: fever(s), chills or fatigue Eyes: Denies: change in vision or eye discomfort ENMT: Denies: throat pain, odynophagia, nasal discharge or nasal congestion Card: Denies: chest pain, palpitations, edema, swelling of feet/ankles, dyspnea on exertion or orthopnea Resp: Denies: dyspnea, productive cough or non-productive cough GI: Denies: abdominal pain, nausea, vomiting, diarrhea, constipation or hematochezia : Denies: flank pain, dysuria or hematuria Musc: Denies: neck pain, back pain or extremity swelling Skin/Breast: Reports: new lesions (Possible insect sting on bottom of right foot); Denies: rash Neuro: Denies: headache(s), numbness in extremities or weakness in extremities PFSH ED PFSH: Medical History No significant past medical history Surgical History H/O oral surgery Social History Smoking and tobacco status: current some day smoker Physical Exam Const: COMMON NORMALS: no acute distress, patient oriented x3, healthy appearing and alert HENMT: COMMON NORMALS: normocephalic HEAD & SCALP: normocephalic MOUTH: Normal oral and palatal mucosa present THROAT: posterior oropharynx normal and uvula midline Neck/C-Spine: COMMON NORMALS: supple GENERAL: Yes normal visual inspection Resp: COMMON NORMALS: normal respiratory effort, No retractions, No use of accessory muscles and clear to auscultation bilaterally AUSCULTATION: clear to auscultation bilaterally Cardio: COMMON NORMALS: regular rate, regular rhythm, S1 normal heart sound present, S2 normal heart sound present, No gallops present (Cardio), No clicks present (Cardio), No murmurs present (Cardio) and Peripheral pulses 2+ throughout RATE: regular rate RHYTHM: regular rhythm HEART SOUNDS: S1 normal heart sound present and S2 normal heart sound present PERIPHERAL PULSES: Peripheral pulses 2+ throughout GI: COMMON NORMALS: Normal to inspection, nondistended, normoactive bowel sounds present, Soft to palpation, non-tender and no masses PALPATION: Yes Soft to palpation : COMMON NORMALS: Yes no CVA tenderness BLADDER/KIDNEY EXAM: Yes no CVA tenderness Back/Pelvis: COMMON NORMALS: no CVA tenderness Extremity: NARRATIVE EXTREMITY EXAM: Right foot?small red dot on plantar side of foot. No swelling or ecchymosis noted. No signs of cellulitis. Neuro: COMMON NORMALS: patient oriented x3 SENSORIUM/ORIENTATION: Yes alert GAIT: Yes Normal gait present Skin: GENERAL SKIN EXAM: dry skin Course Vital Signs: Vital signs: Vital Signs Temperature 98.1 F 02/07/23 15:23 Pulse Rate 98 02/07/23 15:23 Respiratory Rate 16 02/07/23 15:23 Blood Pressure 115/72 02/07/23 15:23 Pulse Oximetry 98 02/07/23 15:23 Oxygen Delivery Me thod Room Air, Nasal C annula, Aerosol Ma sk 02/07/23 15:23 MDM - Animal Bite Medical Decision Making Patient is a 27-year-old female comes to the ED with right foot pain. Patient says pain occurred just prior to arrival. She was outside walking in her yard barefoot. She stepped and felt a sharp stinging type pain in the bottom of her foot. Since then she has been having right foot pain and swelling. She did not see what she stepped on or what potentially stung her. Denies any other symptoms. She rates her pain currently a 5 out of 10 says it gets worse with any pressure or weightbearing when walking. There is a small red silvia on the bottom of her foot where she felt the sharp pain. Patient is up-to-date on tetanus. Vital stable. Right foot?small red dot on plantar side of foot. No swelling or ecchymosis noted. No signs of cellulitis. X-ray of right foot showed no acute findings and no foreign bodies present. Patient likely had an insect sting on foot. She was given a dose of Solu-Medrol and tab of hydrocodone to help with pain. She was stable for discharge home and she was sent home with some crutches to limit weightbearing on sore right foot. Return ED precautions given. Follow-up with PCP within the next 5 to 7 days for reevaluation. Patient was sent home with a prescription for 3-day course of prednisone. Patient understood and agreed with plan. Lab Data Radiology Impressions Foot X-Ray 02/07/23 15:36 IMPRESSION: No acute findings. Discharge Plan Discharge Patient Disposition: Home Clinical Impression: Insect sting Qualifiers: Encounter type: initial encounter Injury intent: accidental or unintentional Qualified Code(s): T63.481A - Toxic effect of venom of other arthropod, accidental (unintentional), initial encounter Condition: Stable Prescriptions: New prednisone 20 mg tablet 20 mg PO BID 3 Days Qty: 6 0RF No Action ibuprofen 200 mg Capsule 400 mg PO Q6H PRN (Reason: Pain) citalopram 20 mg tablet 20 mg PO DAILY Xyzal 5 mg Tablet 5 mg PO DAILY Medrol ([place]) 4 mg tablets,dose pack See Rx Instructions .ROUTE .COMPLEX Qty: 21 0RF Rx Instructions: orally per package directions albuterol sulfate 90 mcg/actuation HFA aerosol inhaler 2 inh inhalation Q4H PRN (Reason: shortness of breath or wheezing) Qty: 8.5 0RF ondansetron 4 mg tablet,disintegrating 4 mg PO Q8H PRN (Reason: nausea and vomiting) Qty: 15 0RF Discharge Orders: Discharge ED (Routine); Ordered 02/07/23 Ordered By: Franco Warner Referrals: Darin Lane MD [Primary Care Provider] - Discharge Diet: Regular Discharge Activity: Increase activity as tolerated and Use walker/crutches as instructed Patient Instructions: Insect Bite or Sting (ED) Activity Restrictions/Additional Instructions: Follow-up with medical provider as directed. Use crutches and limit weightbearing for the next 1 to 2 days. Ice and elevate foot to help with symptoms. Take medications as prescribed. Return to the ER or your medical provider if condition worsens. Please read and understand discharge instructions. Thank you for choosing [facility] for your healthcare needs today. Please realize this is an emergency room and that we are providing you with a medical screening exam and this may not be complete and all inclusive of all the testing and or work up that you may need to determine your ailment or severity of your illness. It is very important that you follow up as instructed or that you return to the Emergency Department should you have concerns or if your condition changes or worsens in any way. Coding Level of Care Code ED Maturity Checker for Kevin Parra
[2023-02-07] MEDS: HYDROcodone-acetaminophen 5-325 mg Tablet 1 TAB PO (16:01)
[2023-02-07] MEDS: methylPREDNISolone sod succ 125 MG in water for injection-sterile 2 ML IV (16:01)
== END 2023-02-07 17:09 | disposition home or self-care (01) ==
PROVIDERS: Emergency Provider Physician Assistant; PCP Family Medicine
DX: T63.481A Toxic effect of venom of other arthropod, accidental (unintentional), initial encounter (principal); F17.210 Nicotine dependence, cigarettes, uncomplicated
CPT/HCPCS: 73630; 96374; 99284; E0114; J2930

== ENCOUNTER 2023-03-17 20:25 | Emergency (ER) | payer BC, MEDICAID, SELFPAY ==
[2023-03-17 20:34] VITALS: BP 110/73; PULSE 95; RESP 18; TEMP 36.6; O2SAT 99; BMI 22.6
[2023-03-17 21:09] LABS: Basophils % 0.5 %; Eosinophils % 0.7 %; Lymphocytes # 1.8 10^3/uL (0.8-4.8); Lymphocytes % 29.2 %; Mean Corpuscular HGB Conc 32.9 g/dL (30-55); Mean Corpuscular Hemoglobin 31.1 pg (27-33); Mean Corpuscular Volume 94.5 fl (85-98); Mean Platelet Volume 12.7 fL (7.4-10.4); Monocytes # 0.4 10^3/uL (0.2-0.9); Monocytes % 5.9 %; Neutrophils # 3.89 10^3/uL (1.8-7.7); Neutrophils % 63.4 %; Nucleated Red Blood Cells % 0 %; Platelet Count 169 10^3/cmm (157-399); Red Blood Count 4.34 10^6/uL (3.85-5.65); Red Cell Distribution Width 13.1 % (12.1-15.1); White Blood Count 6.13 10^3/uL (3.29-11.43)
[2023-03-17 21:24] LABS: HCG, Serum Qual Negative (Negative)
[2023-03-17 21:34] LABS: Alanine Aminotransferase 10 U/L (0-33); Albumin Level 4.6 g/dL (3.5-5.2); Alkaline Phosphatase 58 U/L (35-105); Anion Gap 10.9 (5-19); Aspartate Amino Transferase 19 U/L (0-32); Blood Urea Nitrogen 14 mg/dL (6-20); Calcium 9.4 mg/dL (8.5-10.5); Carbon Dioxide 28 mmol/L (22-29); Chloride 105 mmol/L (98-107); Globulin 2.7 g/dL (1.3-4.6); Glucose 81 mg/dL (65-115); Lipase 29 U/L (13-60); Osmolality Calculated 290 mOsm/kg (285-295); Potassium 3.9 mmol/L (3.5-5.1); Sodium 140 mmol/L (136-145); Total Bilirubin 0.4 mg/dL (0.15-1.2); Total Protein 7.3 g/dL (6.6-8.7)
--- NOTE | 2023-03-17 22:11 | PC.NURSE ---
Pt. in waiting room for possible . Pt. asked for her result. Dr. Ann states to let her know it is negative.
== END 2023-03-17 22:21 | disposition left against medical advice (07) ==
LOC: ER 20:32
PROVIDERS: Emergency Medicine; Emergency Provider Family Medicine; PCP Family Medicine
DX: Z53.21 Procedure and treatment not carried out due to patient leaving prior to being seen by health care provider (principal)
CPT/HCPCS: 36415; 80053; 83690; 84703; 85025; 86140; 99283

== ENCOUNTER 2023-03-18 09:31 | Emergency (ER) | payer BC, MEDICAID, SELFPAY ==
[2023-03-18 09:35] VITALS: BP 117/75; PULSE 89; RESP 18; TEMP 36.7; O2SAT 97; BMI 25.9
--- NOTE | 2023-03-18 10:56 | ED_ITS ---
HPI - Female Genitourinary General: Chief complaint: Vaginal Bleeding Stated complaint: abd pain/ vaginal bleeding Time Seen by Provider: 03/18/23 10:26 Source: patient Mode of arrival: ambulatory Limitations: no limitations History of Present Illness: 27yo female here with concern of a possible . Patient reports that she took a test within the past several days that she believes had a faint positive line. She states she was at this ER last night where she had blood work completed and her test was negative. She states she still feels as if she may be . Reports she had intercourse approximately 1 week ago and her partner was not able to pull out the time. She reports she has been more irritable in the past several days, but also reports that she has been under a lot of stress due to monetary concerns. States she stopped taking her citalopram 40 mg a few weeks ago. Reports that initially she forgot, but then did not resume taking it. Patient reports that she started vaginal bleeding last night. States when she wiped, it appeared more watery than it typically would. Patient does not remember when her last menstrual cycle was. Patient denies excessive bleeding, excessive discomfort, dysuria, any other concerns at this time Associated symptoms: Deny abdominal pain Review of Systems Const: Denies: fever(s) or chills ENMT: Denies: throat pain GI: Denies: abdominal pain : Reports: vaginal bleeding [facility] ED PFSH: Medical History No significant past medical history Surgical History H/O oral surgery Social History Smoking and tobacco status: current some day smoker Physical Exam Const: COMMON NORMALS: no acute distress, patient oriented x3, alert and well nourished GENERAL APPEARANCE: cooperative ORIENTATION/CONSCIOUSNESS: Yes awake OTHER: Patient is ambulatory to the exam room unassisted. She is sitting upright on the side of the stretcher in no acute distress. She is able to make position changes unassisted. No family is at bedside HENMT: COMMON NORMALS: Normal external nose present FACE & SINUS: normal facial exam NOSE: Normal external nose present Neck/C-Spine: COMMON NORMALS: full ROM Chest: CHEST: Yes Symmetrical chest wall rise Resp: COMMON NORMALS: normal respiratory effort EFFORT & INSPECTION: Yes able to speak in complete sentences Cardio: COMMON NORMALS: regular rate RATE: regular rate Extremity: COMMON NORMALS: full ROM Neuro: COMMON NORMALS: patient oriented x3 SENSORIUM/ORIENTATION: Yes alert SPEECH: speech normal Psych: COMMON NORMALS: cooperative ATTITUDE: Yes calm Course Vital Signs: Vital signs: Vital Signs Temperature 98.0 F 03/18/23 09:35 Pulse Rate 89 03/18/23 09:35 Respiratory Rate 18 03/18/23 09:35 Blood Pressure 117/75 03/18/23 09:35 Pulse Oximetry 97 03/18/23 09:35 MDM - Female Medical Decision Making 27yo female here with concerns of a possible . Patient that she started vaginal bleeding last night. States it is not excessive bleeding, but she had concerns of and the bleeding concerned her. She states she had a faintly positive home test within the past couple of days. Patient was at this ER last night where she had a negative serum qualitative test. Patient states she still feels as if she may be and was not sure what to do, so she returned to the emergency department. Patient also reports that she stopped taking her citalopram 40 mg a couple weeks back. She states that she does have increased stress due to monetary concerns with her family. She does not know when her last menstrual cycle was. Reviewed images of patient's home test, unable to visualize the positive indicator. Discussed with patient that the serum test being negative last night is reassuring that she is not currently . Lengthy discussion with patient about other potential causes of her symptoms to include stopping her citalopram on her own as well as the increased stress that she has been under. Encourage patient to take another home test in about a week if she still have concerns of . Given that the patient is not having excessive bleeding, pain, or a positive with vaginal bleeding, no indicators for ultrasound or further evaluation. Recommend she follow-up with her doctor in the next 1 to 2 weeks for recheck. Advised to return to the emergency department if any rapid worsening symptoms and as needed. Lab Data I reviewed the patient's lab results. hCG serum quantitative from 03/17/2023, negative Discharge Plan Discharge Patient Disposition: Home Clinical Impression: Menstrual cycle problem Condition: Stable Prescriptions: No Action ibuprofen 200 mg Capsule 400 mg PO Q6H PRN (Reason: Pain) citalopram 20 mg tablet 20 mg PO DAILY Xyzal 5 mg Tablet 5 mg PO DAILY Medrol ([place]) 4 mg tablets,dose pack See Rx Instructions .ROUTE .COMPLEX Qty: 21 0RF Rx Instructions: orally per package directions albuterol sulfate 90 mcg/actuation HFA aerosol inhaler 2 inh inhalation Q4H PRN (Reason: shortness of breath or wheezing) Qty: 8.5 0RF ondansetron 4 mg tablet,disintegrating 4 mg PO Q8H PRN (Reason: nausea and vomiting) Qty: 15 0RF Discharge Orders: Discharge ED (Routine); Ordered 03/18/23 Ordered By: Bulmaro Medrano Referrals: Darin Lane MD [Primary Care Provider] - Discharge Diet: Usual diet Discharge Activity: Resume usual activity Activity Restrictions/Additional Instructions: Your blood test last night was negative You may take another home test in about a week if you are still having concerns of a possible Some of your symptoms may be related to stress instead of Follow-up with your doctor, call in the next 1 to 2 weeks with an update and possible recheck Return to the emergency department as needed Coding Level of Care Code ED Network Development Coordinator for Kevin Parra
== END 2023-03-18 11:31 | disposition home or self-care (01) ==
PROVIDERS: Emergency Provider Nurse Practitioner; PCP Family Medicine
DX: N92.6 Irregular menstruation, unspecified (principal); F17.210 Nicotine dependence, cigarettes, uncomplicated
CPT/HCPCS: 99282

== ENCOUNTER 2023-04-22 16:20 | Emergency (ER) | payer BC, MEDICAID, SELFPAY ==
[2023-04-22 16:25] VITALS: BP 111/68; PULSE 80; RESP 17; TEMP 36.6; O2SAT 98; BMI 25.8
--- NOTE | 2023-04-22 16:36 | ED_ITS ---
HPI - Female Genitourinary General: Chief complaint: Urogenital-Female Stated complaint: burning urinating, possibly preg Time Seen by Provider: 04/22/23 16:30 History of Present Illness: 27-year-old female comes in today for irregular menstrual cycle and dysuria. Patient reports that her last menstrual cycle was 18 March. Patient had a urine test at home that may have possibly been positive. Patient started having bleeding today similar to her normal periods. Patient appears nontoxic. Patient appears in no pain. Patient reports that her and she have been trying to get since the beginning of February. Review of Systems General: Reports: 10 or more systems reviewed and unremarkable except in HPI and below : Reports: dysuria PFSH ED PFSH: Medical History No significant past medical history Surgical History H/O oral surgery Social History Smoking and tobacco status: current some day smoker Physical Exam Const: COMMON NORMALS: alert HENMT: COMMON NORMALS: normocephalic HEAD & SCALP: normocephalic Neck/C-Spine: COMMON NORMALS: full ROM Resp: COMMON NORMALS: normal respiratory effort and clear to auscultation bilaterally AUSCULTATION: clear to auscultation bilaterally Cardio: COMMON NORMALS: regular rate RATE: regular rate GI: PALPATION: No Tenderness to palpation present (GI) : COMMON NORMALS: Yes no CVA tenderness BLADDER/KIDNEY EXAM: Yes no CVA tenderness Back/Pelvis: COMMON NORMALS: no CVA tenderness and thoracic and lumbar spine normal to inspection Extremity: COMMON NORMALS: full ROM Neuro: SENSORIUM/ORIENTATION: Yes alert Skin: COMMON NORMALS: turgor normal GENERAL SKIN EXAM: turgor normal Course Vital Signs: Vital signs: Vital Signs Temperature 97.8 F 04/22/23 16:25 Pulse Rate 80 04/22/23 16:25 Respiratory Rate 17 04/22/23 16:25 Blood Pressure 111/68 04/22/23 16:25 Pulse Oximetry 98 04/22/23 16:25 Oxygen Delivery Me thod Room Air 04/22/23 16:25 MDM - Female Medical Decision Making 27-year-old female comes in today with some dysuria and possible with vaginal bleeding. On exam abdomen soft nontender. No CVA tenderness. Skin is warm and dry. Vital signs are normal. Differential diagnosis includes but not limited to dysuria, urinary tract infection, spontaneous , dysmenorrhea, irregular menstrual cycle. Urinalysis had a large amount of blood minimal white blood cells. test was negative. I believe patient is probably having her menstrual cycle which was just almost a week late. Urine may possibly have a mild infection as there is 2+ leukocyte esterases and some white blood cells although this is noting some contamination. We will treat with Macrobid 1 tablet twice a day for 10 doses. Patient reported understanding of care plan and need for follow-up. Patient did ask about and when she should expect to be . I recommended that not being concerned until its been 6 months to 1 year of trying to become . I recommended talking with primary care or DANCE HISTORIAN for assistance if she continues to have questions. Lab Data Laboratory Results HCG, Qual Negative (Negative) 04/22/23 16:54 Urine Color Red (Yellow) A 04/22/23 16:54 Urine Appearance Bloody (CLEAR) A 04/22/23 16:54 Urine pH 5 (5-7) 04/22/23 16:54 Ur Specific [place] 1.020 (1.005-1.030) 04/22/23 16:54 Urine Protein 1+ (Negative) H 04/22/23 16:54 Urine Glucose (UA) Norm (Normal) 04/22/23 16:54 Urine Ketones 1+ (Negative) H 04/22/23 16:54 Urine Blood 3+ (Negative) H 04/22/23 16:54 Urine Nitrate Negative (Negative) 04/22/23 16:54 Urine Bilirubin 1+ (Negative) H 04/22/23 16:54 Urine Urobilinogen 1 mg/dL (Negative) H 04/22/23 16:54 Ur Leukocyte Esterase 2+ (Negative) H 04/22/23 16:54 Urine RBC Too numerous to cnt /hpf (0-2) H 04/22/23 16:54 Urine WBC 0-4 /hpf (0-5) H 04/22/23 16:54 Ur Squamous Epith Cells 0-4 /hpf (0-5) H 04/22/23 16:54 Amorphous Sediment Not Reportable 04/22/23 16:54 Urine Bacteria 1+ /hpf (NONE) H 04/22/23 16:54 No radiology studies performed this visit Discharge Plan Discharge Patient Disposition: Home Clinical Impression: Menstrual abnormality, Dysuria Condition: Stable Prescriptions: New nitrofurantoin macrocrystal 100 mg capsule 100 mg PO BID 5 Days Qty: 9 0RF Rx Instructions: must administer with a meal/food No Action ibuprofen 200 mg Capsule 400 mg PO Q6H PRN (Reason: Pain) citalopram 20 mg tablet 20 mg PO DAILY Xyzal 5 mg Tablet 5 mg PO DAILY Medrol ([place]) 4 mg tablets,dose pack See Rx Instructions .ROUTE .COMPLEX Qty: 21 0RF Rx Instructions: orally per package directions albuterol sulfate 90 mcg/actuation HFA aerosol inhaler 2 inh inhalation Q4H PRN (Reason: shortness of breath or wheezing) Qty: 8.5 0RF ondansetron 4 mg tablet,disintegrating 4 mg PO Q8H PRN (Reason: nausea and vomiting) Qty: 15 0RF Discharge Orders: Discharge ED (Routine); Ordered 04/22/23 Ordered By: Bebo Bahena Referrals: Darin Lane MD [Primary Care Provider] - Discharge Diet: Usual diet Discharge Activity: Increase activity as tolerated Patient Instructions: Dysuria (ED) Activity Restrictions/Additional Instructions: Home and rest. Drink plenty of fluids. Activity as tolerated. Follow-up with primary care for further instructions. Return to ED for new concerns. Coding Level of Care Code ED Search Engine Optimizer for Kevin Parra
[2023-04-22 17:17] LABS: Add Urine Microscopic? YES; Bacteria Urine 1+ /hpf; Bilirubin Urine 1+ (Negative); Blood Urine 3+ (Negative); Glucose Urine UA Norm (Normal); Ketones Urine 1+ (Negative); Leukocyte Esterase Urine 2+ (Negative); Nitrate Urine Negative (Negative); Protein Urine 1+ (Negative); RBC Urine TOO NUMEROUS TO CNT /hpf (0-2); Squamous Epithelial Cell Urine 0-4 /hpf (0-5); Urine Appearance Bloody (CLEAR); Urine Color Red (Yellow); Urobilinogen Urine 1 mg/dL (Negative); WBC Urine 0-4 /hpf (0-5); pH Urine 5 (5-7)
[2023-04-22 17:21] LABS: HCG Qualitative Urine. Negative (Negative)
[2023-04-22 17:22] LABS: Add Urine Culture? Yes
[2023-04-22] MEDS: nitrofurantoin SR (BID) 100 mg Capsule PO (18:03)
== END 2023-04-22 18:05 | disposition home or self-care (01) ==
PROVIDERS: Emergency Medicine; Emergency Provider Nurse Practitioner Family; PCP Family Medicine
DX: N92.6 Irregular menstruation, unspecified (principal); R30.0 Dysuria; F17.210 Nicotine dependence, cigarettes, uncomplicated
CPT/HCPCS: 81001; 81025; 87077; 87086; 87186; 99283

== ENCOUNTER 2023-04-26 20:22 | Emergency (ER) | payer BC, MEDICAID, SELFPAY ==
[2023-04-26 20:50] VITALS: BP 123/73; PULSE 70; RESP 16; TEMP 36.8; O2SAT 98; BMI 25.8
--- NOTE | 2023-04-26 22:42 | ED_ITS ---
HPI - Headache General: Chief Complaint: Headache Stated Complaint: migraine Time Seen by Provider: 04/26/23 22:31 Source: patient Mode of arrival: ambulatory Limitations: no limitations History of Present Illness: 27-year-old female has a history of migraines she states that she has had a headache since 1 this afternoon she states that its been like her previous migraines rates headache an 8 out of 10 and is gradually gotten worse she has photophobia phonophobia denies any neck pain denies any fevers. Associated symptoms: Deny chest pain, fever(s), nausea, rash or vomiting Review of Systems Const: Denies: fever(s) or chills Eyes: Denies: blurry vision or eye discomfort ENMT: Denies: throat pain or dental pain Card: Denies: chest pain Resp: Denies: dyspnea GI: Denies: abdominal pain, nausea, vomiting or diarrhea Musc: Denies: neck pain or back pain Skin/Breast: Denies: rash Neuro: Reports: headache(s) PFS ED PFSH: Medical History No significant past medical history Surgical History H/O oral surgery Social History Smoking and tobacco status: current some day smoker Physical Exam Const: COMMON NORMALS: no acute distress, patient oriented x3 and healthy appearing HENMT: COMMON NORMALS: normocephalic and atraumatic HEAD & SCALP: normocephalic and atraumatic Eye: COMMON NORMALS: conjunctivae normal CONJUNCTIVA: Yes conjunctivae normal Neck/C-Spine: COMMON NORMALS: full ROM and supple Chest: COMMONS NORMALS: normal inspection of the chest Resp: COMMON NORMALS: normal respiratory effort Cardio: COMMON NORMALS: regular rate, regular rhythm and No murmurs present (Cardio) RATE: regular rate RHYTHM: regular rhythm Extremity: COMMON NORMALS: normal to inspection and full ROM Neuro: COMMON NORMALS: patient oriented x3, moves all extremities and no focal motor deficits Psych: COMMON NORMALS: mental status grossly normal, Normal thought process present and cooperative THOUGHT PROCESS: Normal thought process present Skin: COMMON NORMALS: no rashes or lesions noted and no wounds GENERAL SKIN EXAM: no rashes or lesions noted Course Vital Signs: Vital signs: Vital Signs Temperature 98.2 F 04/26/23 20:50 Pulse Rate 64 04/26/23 22:58 Respiratory Rate 16 04/26/23 22:58 Blood Pressure 136/93 04/26/23 22:58 Pulse Oximetry 100 04/26/23 22:58 Oxygen Delivery Me thod Room Air 04/26/23 20:50 MDM - Headache Medical Decision Making Patient presents here with a headache likely migraine headache she has no signs of meningitis or subarachnoid hemorrhage she feels improved here after meds she is stable for discharge she is to follow-up with PCP and return if worsening. Medical Records I reviewed the patient's medical records. No radiology studies performed this visit Discharge Plan Discharge Patient Disposition: Home Clinical Impression: Headache Condition: Stable Prescriptions: No Action nitrofurantoin macrocrystal 100 mg capsule 100 mg PO BID 5 Days Qty: 9 0RF Rx Instructions: must administer with a meal/food ibuprofen 200 mg Capsule 400 mg PO Q6H PRN (Reason: Pain) citalopram 20 mg tablet 20 mg PO DAILY Xyzal 5 mg Tablet 5 mg PO DAILY Medrol ([place]) 4 mg tablets,dose pack See Rx Instructions .ROUTE .COMPLEX Qty: 21 0RF Rx Instructions: orally per package directions albuterol sulfate 90 mcg/actuation HFA aerosol inhaler 2 inh inhalation Q4H PRN (Reason: shortness of breath or wheezing) Qty: 8.5 0RF ondansetron 4 mg tablet,disintegrating 4 mg PO Q8H PRN (Reason: nausea and vomiting) Qty: 15 0RF Discharge Orders: Discharge ED (Routine); Ordered 04/26/23 Ordered By: David Barcenas Referrals: Darin Lane MD [Primary Care Provider] - 1-3 days Discharge Diet: Advance as tolerated Discharge Activity: Resume usual activity Patient Instructions: Migraine Headache (ED) Coding Level of Care Code ED Account Adjuster for Kevin Parra
[2023-04-26] MEDS: ketorolac 30 mg/mL INJ 15 MG IVP (22:52)
[2023-04-26] MEDS: diphenhydrAMINE 50 mg/mL SDV 1mL IVP (22:53)
[2023-04-26] MEDS: metoclopramide 5 mg/mL SDV 2 mL 10 MG IVP (22:54)
[2023-04-26 22:58] VITALS: BP 136/93; PULSE 64; RESP 16; O2SAT 100
[2023-04-26 23:39] VITALS: BP 103/53; PULSE 51; RESP 16; O2SAT 98
== END 2023-04-26 23:40 | disposition home or self-care (01) ==
PROVIDERS: Emergency Provider Emergency Medicine; PCP Family Medicine
DX: R51.9 Headache, unspecified (principal); F17.210 Nicotine dependence, cigarettes, uncomplicated
CPT/HCPCS: 96374; 96375; 99284; J1200; J1885; J2765

== ENCOUNTER 2023-06-16 06:16 | Emergency (ER) | payer BC, MEDICAID, SELFPAY ==
[2023-06-16 06:19] VITALS: BP 107/67; PULSE 65; RESP 16; TEMP 36.6; O2SAT 98; BMI 24.3
--- NOTE | 2023-06-16 06:53 | ED_ITS ---
HPI - Abdominal Pain 2 General: Chief Complaint: Abdominal Pain Stated Complaint: N/V, abd pain when cramping Time Seen by Provider: 06/16/23 06:28 History of Present Illness: Patient presents to the ER with complaints of nausea vomiting since this morning, abdominal pain for the last couple days, and a 2-day history of menstrual period on 11 which is unusual for her. Patient is not currently on control and is trying for a baby. Patient says the only time she is nauseous this early in the morning is when she is . Patient has not taken a test. Patient still has her gallbladder. Related Data: Date of Last Menstrual Period: 05/24/23 Review of Systems 2 General: Reports: 10 or more systems reviewed and unremarkable except in HPI and below PFSH ED 2 PFSH: Medical History No significant past medical history Surgical History H/O oral surgery Social History Smoking and tobacco/nicotine status: current some day tobacco/nicotine user Female Reproductive History: Date of last menstrual period: 05/24/23 Physical Exam 2 Const: COMMON NORMALS: no acute distress, average body habitus, patient oriented x3, no limitations, healthy appearing, alert and well nourished HENMT: COMMON NORMALS: normocephalic, atraumatic, hearing grossly normal bilaterally, external ears normal, Normal external nose present, moist oral mucous membranes and oropharynx normal HEAD & SCALP: normocephalic and atraumatic NOSE: Normal external nose present EXTERNAL EAR: Yes external ears normal Neck/C-Spine: COMMON NORMALS: full ROM, no lymphadenopathy, supple, no meningeal signs, no JVD and Thyroid normal THYROID: Thyroid normal Chest: COMMONS NORMALS: normal inspection of the chest and normal palpation of entire chest wall Resp: COMMON NORMALS: normal respiratory effort, No retractions, No use of accessory muscles and clear to auscultation bilaterally AUSCULTATION: clear to auscultation bilaterally Cardio: COMMON NORMALS: no JVD, regular rate, regular rhythm, S1 normal heart sound present, S2 normal heart sound present, No gallops present (Cardio), No clicks present (Cardio), No murmurs present (Cardio) and No rub (Cardio) R ATE: regular rate RHYTHM: regular rhythm HEART SOUNDS: S1 normal heart sound present and S2 normal heart sound present GI: COMMON NORMALS: Normal to inspection, nondistended, normoactive bowel sounds present, Soft to palpation, No hepatosplenomegaly present and no masses; negative for non-tender (Diffusely mild tender no rebound guarding or rigidity) PALPATION: Yes Soft to palpation and Yes No hepatosplenomegaly present Neuro: COMMON NORMALS: patient oriented x3 SENSORIUM/ORIENTATION: Yes alert MENINGEAL SIGNS: Yes no meningeal signs Course 2 Vital Signs: Vital signs: Vital Signs Temperature 97.9 F 06/16/23 06:19 Pulse Rate 51 L 06/16/23 07:46 Respiratory Rate 16 06/16/23 06:19 Blood Pressure 101/58 06/16/23 07:46 Pulse Oximetry 97 06/16/23 07:46 MDM - Abdominal Pain Medical Decision Making Patient presents to the ER with epigastric pain nausea vomiting was essentially unremarkable. CBC CMP lipase urinalysis and urine at hCG was all essentially negative. Patient be discharged home and is to follow-up with her PCP in within the next 7 days for further evaluation and treatment. Differential Diagnosis Likely abdominal pain; Unlikely acute appendicitis, calculus of kidney, constipation, diverticulitis, endometriosis, gastroenteritis, pancreatitis or small bowel obstruction Medical Records I reviewed the patient's medical records. Lab Data I reviewed the patient's lab results. 06/16/23 06:30 06/16/23 06:30 Labs/Radiology: Laboratory Results WBC 5.09 10^3/uL (3.29-11.43) 06/16/23 06:30 RBC 4.47 10^6/uL (3.85-5.65) 06/16/23 06:30 Hgb 13.90 g/dL (11.27-16.99) 06/16/23 06:30 Hct 43.1 % (36-47) 06/16/23 06:30 MCV 96.4 fl (85-98) 06/16/23 06:30 MCH 31.1 pg (27-33) 06/16/23 06:30 MCHC 32.3 g/dL (30-55) 06/16/23 06:30 RDW 12.2 % (12.1-15.1) 06/16/23 06:30 Plt Count 142 10^3/cmm (157-399) L 06/16/23 06:30 MPV 12.9 fL (7.4-10.4) H 06/16/23 06:30 Neut % (Auto) 63.4 % 06/16/23 06:30 Lymph % (Auto) 23.8 % 06/16/23 06:30 [place] % (Auto) 9.6 % 06/16/23 06:30 Eos % (Auto) 1.8 % 06/16/23 06:30 Baso % (Auto) 0.4 % 06/16/23 06:30 Neut # (Auto) 3.23 10^3/uL (1.8-7.7) 06/16/23 06:30 Lymph # (Auto) 1.2 10^3/uL (0.8-4.8) 06/16/23 06:30 [place] # (Auto) 0.5 10^3/uL (0.2-0.9) 06/16/23 06:30 Eos # (Auto) 0.1 10^3/uL (0.0-0.8) 06/16/23 06:30 Baso # (Auto) 0.0 10^3/uL (0.0-0.1) 06/16/23 06:30 Nucleated RBC % (auto) 0 % 06/16/23 06:30 Nucleated RBCs # 0.0 /100WBC 06/16/23 06:30 Sodium 141 mmol/L (136-145) 06/16/23 06:30 Potassium 4.3 mmol/L (3.5-5.1) 06/16/23 06:30 Chloride 108 mmol/L (98-107) H 06/16/23 06:30 Carbon Dioxide 22 mmol/L (22-29) 06/16/23 06:30 Anion Gap 15.3 (5-19) 06/16/23 06:30 BUN 20 mg/dL (6-20) 06/16/23 06:30 Creatinine 1.0 mg/dL (0.5-0.9) H 06/16/23 06:30 GFR Calculation 66.0 mL/min (90-130) L 06/16/23 06:30 Glucose 106 mg/dL (65-115) 06/16/23 06:30 Calculated Osmolality 295 mOsm/kg (285-295) 06/16/23 06:30 Calcium 9.5 mg/dL (8.5-10.5) 06/16/23 06:30 Total Bilirubin 0.3 mg/dL (0.15-1.2) 06/16/23 06:30 AST 15 U/L (0-32) 06/16/23 06: ALT 12 U/L (0-33) 06/16/23 06:30 Alkaline Phosphatase 49 U/L (35-105) 06/16/23 06:30 Total Protein 7.1 g/dL (6.6-8.7) 06/16/23 06: Albumin 4.5 g/dL (3.5-5.2) 06/16/23 06: Globulin 2.6 g/dL (1.3-4.6) 06/16/23 06: Lipase 38 U/L (13-60) 06/16/23 06:30 HCG, Qual Negative (Negative) 06/16/23 06:30 Urine Color Yellow (Yellow) 06/16/23 06:30 Urine Appearance Hazy (CLEAR) A 06/16/23 06:30 Urine pH 7 (5-7) 06/16/23 06:30 Ur Specific [place] 1.005 (1.005-1.030) 06/16/23 06:30 Urine Protein Neg (Negative) 06/16/23 06:30 Urine Glucose (UA) Norm (Normal) 06/16/23 06:30 Urine Ketones Negative (Negative) 06/16/23 06:30 Urine Blood Neg (Negative) 06/16/23 06:30 Urine Nitrate Negative (Negative) 06/16/23 06:30 Urine Bilirubin Neg (Negative) 06/16/23 06:30 Urine Urobilinogen Norm mg/dL (Negative) 06/16/23 06:30 Ur Leukocyte Esterase 1+ (Negative) H 06/16/23 06:30 Urine RBC 0-4 /hpf (0-2) H 06/16/23 06:30 Urine WBC 0-4 /hpf (0-5) H 06/16/23 06:30 Ur Squamous Epith Cells 10-15 /hpf (0-5) H 06/16/23 06:30 Amorphous Sediment Not Reportable 06/16/23 06:30 Urine Bacteria Trace /hpf (NONE) 06/16/23 06:30 All radiology interpretation(s) finalized by discharge Discharge Plan Discharge Patient Disposition: Home Clinical Impression: Gastroenteritis Abdominal pain Qualifiers: Abdominal location: unspecified location Qualified Code(s): R10.9 - Unspecified abdominal pain Condition: Stable Prescriptions: No Action ibuprofen 200 mg Capsule 400 mg PO Q6H PRN (Reason: Pain) citalopram 40 mg tablet 40 mg PO DAILY sumatriptan succinate 50 mg Tablet 50 mg PO Q2H PRN (Reason: Migraine Headache) Rx Instructions: do not exceed 4 doses per 24 hrs Discharge Orders: Discharge ED (Routine); Ordered 06/16/23 Ordered By: Osvaldo Dang Referrals: Darin Lane MD [Primary Care Provider] - 1 week Discharge Diet: Advance as tolerated Discharge Activity: Resume usual activity Patient Instructions: Gastroenteritis (ED), Abdominal Pain (ED) Activity Restrictions/Additional Instructions: Follow-up with your family practice physician within the next 7 to 10 days for further evaluation and treatment on an as-needed basis. Coding Level of Care Code ED Commercial Trailer Truck Driver for Kevin Parra
[2023-06-16 06:55] LABS: Basophils % 0.4 %; Eosinophils # 0.1 10^3/uL (0.0-0.8); Eosinophils % 1.8 %; Hematocrit 43.1 % (36-47); Lymphocytes # 1.2 10^3/uL (0.8-4.8); Lymphocytes % 23.8 %; Mean Corpuscular HGB Conc 32.3 g/dL (30-55); Mean Corpuscular Hemoglobin 31.1 pg (27-33); Mean Corpuscular Volume 96.4 fl (85-98); Mean Platelet Volume 12.9 fL (7.4-10.4); Monocytes # 0.5 10^3/uL (0.2-0.9); Monocytes % 9.6 %; Neutrophils # 3.23 10^3/uL (1.8-7.7); Neutrophils % 63.4 %; Nucleated Red Blood Cells % 0 %; Platelet Count 142 10^3/cmm (157-399); Red Blood Count 4.47 10^6/uL (3.85-5.65); Red Cell Distribution Width 12.2 % (12.1-15.1); White Blood Count 5.09 10^3/uL (3.29-11.43)
[2023-06-16 07:10] LABS: Alanine Aminotransferase 12 U/L (0-33); Albumin Level 4.5 g/dL (3.5-5.2); Alkaline Phosphatase 49 U/L (35-105); Anion Gap 15.3 (5-19); Aspartate Amino Transferase 15 U/L (0-32); Blood Urea Nitrogen 20 mg/dL (6-20); Calcium 9.5 mg/dL (8.5-10.5); Carbon Dioxide 22 mmol/L (22-29); Chloride 108 mmol/L (98-107); Globulin 2.6 g/dL (1.3-4.6); Glucose 106 mg/dL (65-115); Lipase 38 U/L (13-60); Osmolality Calculated 295 mOsm/kg (285-295); Potassium 4.3 mmol/L (3.5-5.1); Sodium 141 mmol/L (136-145); Total Bilirubin 0.3 mg/dL (0.15-1.2); Total Protein 7.1 g/dL (6.6-8.7)
[2023-06-16 07:14] LABS: Add Urine Microscopic? YES; Bilirubin Urine Neg (Negative); Blood Urine Neg (Negative); Glucose Urine UA Norm (Normal); Ketones Urine Negative (Negative); Leukocyte Esterase Urine 1+ (Negative); Nitrate Urine Negative (Negative); Protein Urine Neg (Negative); Specific Gravity, Urine 1.005 (1.005-1.030); Urine Appearance Hazy (CLEAR); Urine Color Yellow (Yellow); Urobilinogen Urine Norm (Negative); pH Urine 7 (5-7)
[2023-06-16 07:15] LABS: Bacteria Urine TRACE /hpf; RBC Urine 0-4 /hpf (0-2); WBC Urine 0-4 /hpf (0-5)
[2023-06-16 07:46] VITALS: BP 101/58; PULSE 51; O2SAT 97
[2023-06-16 08:16] LABS: HCG Qualitative Urine. Negative (Negative)
[2023-06-16 08:33] VITALS: PULSE 55; RESP 17; O2SAT 98
== END 2023-06-16 08:34 | disposition home or self-care (01) ==
PROVIDERS: Emergency Provider Emergency Medicine; PCP Family Medicine
DX: K52.9 Noninfective gastroenteritis and colitis, unspecified (principal); Z72.0 Tobacco use
CPT/HCPCS: 80053; 81001; 81025; 83690; 85025; 99283

== ENCOUNTER 2023-07-11 11:28 | Emergency (ER) | payer BC, MEDICAID, SELFPAY ==
[2023-07-11 11:33] VITALS: BP 109/71; PULSE 73; RESP 18; TEMP 36.5; O2SAT 99; BMI 23.3
--- NOTE | 2023-07-11 11:41 | XRR_ITS ---
PROCEDURE INFORMATION: Exam: XR Right Shoulder Exam date and time: 07/11/2023 12:06 PM Age: 28 years old Clinical indication: Injury or trauma; Other: Not specified; Blunt trauma (contusions or hematomas); Shoulder; Right TECHNIQUE: Imaging protocol: Radiologic exam of the right shoulder. Views: 2 or more views. COMPARISON: CR XR shoulder RT min 2V* [id number] 08/19/2020 5:36 PM FINDINGS: Bones/joints: Normal. No fracture or dislocation. No acute osseous or joint abnormality. Soft tissues: Normal. XR/XR shoulder RT min 2V* [id number] IMPRESSION: The findings are normal.
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
== END 2023-07-11 13:39 | disposition home or self-care (01) ==
PROVIDERS: Emergency Provider Nurse Practitioner Family; PCP Family Medicine
DX: M77.8 Other enthesopathies, not elsewhere classified (principal); Z72.0 Tobacco use
CPT/HCPCS: 73030; 99283

== ENCOUNTER 2023-09-21 10:18 | Emergency (ER) | payer BC, MEDICAID, SELFPAY ==
[2023-09-21 10:37] VITALS: BP 113/72; PULSE 76; RESP 18; TEMP 36.6; O2SAT 99
--- NOTE | 2023-09-21 11:00 | XR_ITS ---
WS: [id number] Exam: XR chest 1V portable [id number] Date/Time of Exam: 09/21/2023 11:49 AM Reason For Exam: cough/congestion Comparison 01/08/2023. Findings: The lungs are clear and fully expanded. Costophrenic angles are sharp. No infiltrates. Bronchovascula r relief appears normal. Cardiac silhouette is unremarkable. Bony elements are intact. IMPRESSION: Unremarkable chest radiograph.
--- NOTE | 2023-09-21 11:31 | ED_ITS ---
HPI - URI/Sore Throat General: Chief Complaint: Upper Respiratory Infection Stated Complaint: cough, chest pains Time Seen by Provider: 09/21/23 10:27 Source: patient Mode of arrival: ambulatory Limitations: no limitations History of Present Illness: Patient is a 28-year-old female presents to ED today with a complaint of nasal congestion/stuffiness, ear fullness, cough, chest congestion over the past 3 to 4 days. She states she has been using Benadryl which seems to help dry up her nasal congestion. She feels like her chest is rattling . She is reporting a productive cough. Denies shortness of breath or chest pain. No fevers. No sick contacts. No difficulty swallowing. MD elicited complaint: cough, nasal congestion and sinus pain Onset (ago): day(s) Consistency: constant Severity: moderate Description of mucous: clear and yellow Able to tolerate fluids by mouth: Yes Exacerbating factors: nothing Relieving factors: nothing Associated symptoms: Reports ear or mastoid pain, nasal congestion and sinus pain; Deny abdominal pain, chills, chest pain, diarrhea, fever(s), headache(s) or vomiting Treatments prior to arrival: other (benadryl) Review of Systems Const: Denies: fever(s), chills, body aches or fatigue Eyes: Denies: change in vision, blurry vision, photophobia, eye discomfort or eye discharge ENMT: Reports: ear or mastoid pain, nasal discharge, nasal congestion and sinus pain; Denies: throat pain, enlarged tonsils, odynophagia, swelling of lips/tongue, oral sores, ear discharge, change in hearing or post nasal drip Card: Denies: chest pain Resp: Reports: productive cough and chest congestion; Denies: dyspnea, non-productive cough, wheezing, pain on inspiration or hemoptysis GI: Denies: abdominal pain, vomiting or diarrhea : Denies: flank pain or dysuria Musc: Denies: neck pain or back pain Skin/Breast: Denies: rash Neuro: Denies: headache(s) All/Imm: Denies: facial swelling or seasonal rhinorrhea PFS ED PFSH: Medical History No significant past medical history Surgical History H/O oral surgery Social History Smoking and tobacco/nicotine status: current some day tobacco/nicotine user Physical Exam Const: COMMON NORMALS: no acute distress, average body habitus, patient oriented x3, no limitations, healthy appearing, alert and well nourished HENMT: COMMON NORMALS: normocephalic, atraumatic, hearing grossly normal bilaterally, external ears normal, EAC's normal, Normal external nose present, Normal nasal mucous membranes and turbinates present, moist oral mucous membranes and oropharynx normal HEAD & SCALP: normal to inspection, norm ocephalic and atraumatic FACE & SINUS: normal facial exam, face symmetric and sinus tenderness NOSE: Normal external nose present and Normal nasal mucous membranes and turbinates present EXTERNAL EAR: Yes external ears normal EXTERNAL AUDITORY CANAL: EAC's normal TYMPANIC MEMBRANE: TM abnormal TM laterality: bilateral wth effusion MOUTH: Normal oral and palatal mucosa present and lip normal THROAT: posterior oropharynx normal, tonsils normal and uvula midline Eye: COMMON NORMALS: Equal, round and reactive pupils present, EOMs intact bilaterally and conjunctivae normal CONJUNCTIVA: Yes conjunctivae normal PUPIL: Yes Equal, round and reactive pupils present Neck/C-Spine: COMMON NORMALS: no lymphadenopathy Chest: COMMONS NORMALS: normal inspection of the chest and normal palpation of entire chest wall Resp: COMMON NORMALS: normal respiratory effort and clear to auscultation bilaterally AUSCULTATION: clear to auscultation bilaterally Cardio: COMMON NORMALS: regular rate and regular rhythm RATE: regular rate RHYTHM: regular rhythm Neuro: COMMON NORMALS: patient oriented x3 SENSORIUM/ORIENTATION: Yes alert Skin: COMMON NORMALS: no rashes or lesions noted GENERAL SKIN EXAM: no rashes or lesions noted Course Vital Signs: Vital signs: Vital Signs Temperature 97.8 F 09/21/23 10:37 Pulse Rate 81 09/21/23 11:39 Respiratory Rate 16 09/21/23 11:39 Blood Pressure 129/70 09/21/23 11:39 Pulse Oximetry 96 09/21/23 11:39 Oxygen Delivery Me thod Room Air 09/21/23 11:39 MDM - URI/Sore Throat Medical Decision Making Patient appears in no acute distress. She arrives today with normal vital signs. CXR is normal. Respiratory panel collected and pending. Will place her on some Mucinex DM. Other conservative/symptomatic therapies discussed. She can follow-up with PCP in 1 to 2 weeks if symptoms do not seem to be improving. Return to ED precautions given. Differential Diagnosis Likely upper respiratory infection, sinusitis, viral infection, bronchitis, influenza and pharyngitis Medical Records I reviewed the patient's medical records. XR interpretation done by ED provider, pending radiology final review Discharge Plan Discharge Patient Disposition: Home Clinical Impression: Viral upper respiratory tract infection with cough Condition: Stable Prescriptions: New Mucinex DM 60-1,200 mg tablet extended release 12 hr 1 tab PO BID PRN (Reason: cold symptoms) Qty: 14 0RF No Action diclofenac sodium 75 mg tablet,delayed release (DR/EC) 75 mg PO BID Qty: 20 0RF ibuprofen 200 mg Capsule 400 mg PO Q6H PRN (Reason: Pain) citalopram 40 mg tablet 40 mg PO DAILY sumatriptan succinate 50 mg Tablet 50 mg PO Q2H PRN (Reason: Migraine Headache) Rx Instructions: do not exceed 4 doses per 24 hrs Discharge Orders: Discharge ED (Routine); Ordered 09/21/23 Ordered By: Mary Hernandez Referrals: Darin Lane MD [Primary Care Provider] - Patient Instructions: Upper Respiratory Infection (DC) Activity Restrictions/Additional Instructions: As we discussed we should contact you later today if your respiratory panel comes back positive for anything. Your chest x-ray here was normal. I will place you on a medication to help with your congestion and cough. You may also try Vicks chest rub, nasal saline irrigation, cool-mist humidifier, etc to help with symptoms. Coding Level of Care Code ED Pododermatologist for Kevin Parra
[2023-09-21 11:39] VITALS: BP 129/70; PULSE 81; RESP 16; O2SAT 96
[2023-09-21 12:13] VITALS: BP 114/77; O2SAT 98
[2023-09-21 13:25] LABS: Adenovirus Not Detected (NOT DETECT); Chlamydia Pneumoniae Not Detected (NOT DETECT); Coronavirus 229E,HKU1,NL63,OC4 Not Detected (NOT DETECT); Human Metapneumovirus Not Detected (NOT DETECT); Human Rhinovirus/Enterovirus Not Detected (NOT DETECT); Influenza A Not Detected (NOT DETECT); Influenza A H1 Not Detected (NOT DETECT); Influenza A H1-2009 Not Detected (NOT DETECT); Influenza A H3 Not Detected (NOT DETECT); Influenza B Not Detected (NOT DETECT); Mycoplasma Pneumoniae Not Detected (NOT DETECT); Parainfluenza Virus Type 1 Not Detected (NOT DETECT); Parainfluenza Virus Type 2 Not Detected (NOT DETECT); Parainfluenza Virus Type 3 Not Detected (NOT DETECT); Parainfluenza Virus Type 4 Not Detected (NOT DETECT); Respiratory Syncytial Virus A Not Detected (NOT DETECT); Respiratory Syncytial Virus B Not Detected (NOT DETECT); SARS-COV-2 Not Detected (NOT DETECT)
== END 2023-09-21 12:14 | disposition home or self-care (01) ==
PROVIDERS: Emergency Provider Physician Assistant; PCP Family Medicine
DX: J06.9 Acute upper respiratory infection, unspecified (principal); R05.9 Cough, unspecified; Z72.0 Tobacco use
CPT/HCPCS: 71045; 87486; 87581; 87633; 99284

== ENCOUNTER 2023-12-22 17:24 | Emergency (ER) | payer BC, MEDICAID, SELFPAY ==
[2023-12-22 17:28] VITALS: BP 99/68; PULSE 96; RESP 17; TEMP 36.4; O2SAT 100; BMI 22.2
[2023-12-22 18:03] LABS: Basophils % 0.1 %; Eosinophils % 0.4 %; Hematocrit 45.5 % (36-47); Lymphocytes # 1.7 10^3/uL (0.8-4.8); Lymphocytes % 23.4 %; Mean Corpuscular HGB Conc 34.9 g/dL (30-55); Mean Corpuscular Hemoglobin 31.7 pg (27-33); Mean Corpuscular Volume 90.6 fl (85-98); Mean Platelet Volume 12.7 fL (7.4-10.4); Monocytes # 0.4 10^3/uL (0.2-0.9); Monocytes % 5.2 %; Neutrophils # 5.15 10^3/uL (1.8-7.7); Neutrophils % 70.6 %; Nucleated Red Blood Cells % 0 %; Platelet Count 152 10^3/cmm (157-399); Red Blood Count 5.02 10^6/uL (3.85-5.65); Red Cell Distribution Width 11.9 % (12.1-15.1)
[2023-12-22] MEDS: sodium chloride 0.9% 1,000 ML 999 ML IV ×3 (18:13→19:47)
[2023-12-22] MEDS: ondansetron 2 mg/ML SDV 2 mL 4 MG IVP (18:13)
[2023-12-22 18:33] LABS: Alanine Aminotransferase 8 U/L (0-33); Albumin Level 4.8 g/dL (3.5-5.2); Alkaline Phosphatase 59 U/L (35-105); Anion Gap 19.9 (5-19); Aspartate Amino Transferase 12 U/L (0-32); Blood Urea Nitrogen 15 mg/dL (6-20); Calcium 9.4 mg/dL (8.5-10.5); Carbon Dioxide 19 mmol/L (22-29); Chloride 102 mmol/L (98-107); Globulin 2.9 g/dL (1.3-4.6); Glucose 84 mg/dL (65-115); Osmolality Calculated 284 mOsm/kg (285-295); Potassium 3.9 mmol/L (3.5-5.1); Sodium 137 mmol/L (136-145); Total Bilirubin 0.7 mg/dL (0.15-1.2); Total Protein 7.7 g/dL (6.6-8.7)
--- NOTE | 2023-12-22 18:46 | ED_ITS ---
HPI - Nausea/Vomiting/Diarrhea 2 General: Chief complaint: Nausea/Vomiting/Diarrhea Stated complaint: vomiting, 8 weeks Time Seen by Provider: 12/22/23 17:34 History of Present Illness: 28-year-old female, G3, P2. She believe s she is 8 weeks . She is presents here with nausea and vomiting she says that began 2 weeks ago. She has had this on and off. She has been able to hold food down at times, but not much. The last 24 hours, she has not had anything but sips of water. She was throwing up water prior to arrival. She denies fever. She states she had some diarrhea initially, last week, but none since. Mild belly pain on and off. No vaginal bleeding. Associated nausea: Yes Associated symtoms: Reports nausea; Denies change in vision, chest pain, dizziness, headache(s) or palpitations Review of Systems 2 Const: Denies: fever(s), chills or body aches Eyes: Denies: change in vision Card: Denies: chest pain or palpitations Resp: Denies: dyspnea, productive cough, non-productive cough or wheezing GI: Reports: nausea, vomiting and diarrhea (Resolved now); Denies: hematochezia : Denies: difficulty voiding Skin/Breast: Denies: rash Neuro: Denies: headache(s), weakness in extremities, dizziness or confusion PFSH ED 2 PFSH: Medical History No significant past medical history Surgical History H/O oral surgery Social History Smoking and tobacco/nicotine status: current some day tobacco/nicotine user Physical Exam 2 Const: GENERAL APPEARANCE: cooperative and ill appearing (Mildly); not frail appearing HENMT: COMMON NORMALS: normocephalic, atraumatic and Normal external nose present HEAD & SCALP: normocephalic and atraumatic FACE & SINUS: normal facial exam and face symmetric NOSE: Normal external nose present Eye: COMMON NORMALS: Equal, round and reactive pupils present and EOMs intact bilaterally PUPIL: Yes Equal, round and reactive pupils present Neck/C-Spine: GENERAL: Yes trachea midline Chest: CHEST: Yes Symmetrical chest wall rise Resp: COMMON NORMALS: normal respiratory effort, No retractions, No use of accessory muscles and clear to auscultation bilaterally AUSCULTATION: clear to auscultation bilaterally Cardio: COMMON NORMALS: regular rate and regular rhythm RATE: regular rate RHYTHM: regular rhythm GI: COMMON NORMALS: Normal to inspection, nondistended, normoactive bowel sounds present Extremity: COMMON NORMALS: no pedal edema Neuro: [place] COMA SCALE: document GCS findings [place] coma scale eye opening: Spontaneous [place] coma scale verbal response: Orientated [place] coma scale motor response: Obey commands Adama coma scale total score: 15 S ENSORY EXAM: Yes extremities (intact) Psych: COMMON NORMALS: speech normal SPEECH: Yes normal speech Skin: COMMON NORMALS: no rashes or lesions noted GENERAL SKIN EXAM: no rashes or lesions noted Course 2 Vital Signs: Vital signs: Vital Signs Temperature 97.6 F 12/22/23 17:28 Pulse Rate 64 12/22/23 20:36 Respiratory Rate 17 12/22/23 17:28 Blood Pressure 99/68 12/22/23 17:28 Pulse Oximetry 99 12/22/23 20:36 Oxygen Delivery Me thod Room Air 12/22/23 17:28 MDM - Nausea/Vomiting/Diarrhea Medical Decision Making Vitals are stable here. White blood cell count is normal. Her platelet count is mildly low. Hemoglobin is 16. Bicarbonate level is 19. She is three 1 L, and is getting another 1. Serum is 153,000, which is appropriate for 8 weeks. Bedside ultrasound reveals a 7-week 5-day gestational sac. Intrauterine with heart rate at appropriate rate in the 160s. She is feeling improved. She is asked for putting. We have given her Zofran and Reglan. She does have a history of chronic thrombocytopenia. She has received a total of 2.5 L in the ER. She is feeling improved. Will allow home for close outpatient follow-up. Lab Data 12/22/23 17:57 12/22/23 17:57 Laboratory Results WBC 7.30 10^3/uL (3.29-11.43) 12/22/23 17:57 RBC 5.02 10^6/uL (3.85-5.65) 12/22/23 17:57 Hgb 15.90 g/dL (11.27-16.99) 12/22/23 17:57 Hct 45.5 % (36-47) 12/22/23 17:57 MCV 90.6 fl (85-98) 12/22/23 17:57 MCH 31.7 pg (27-33) 12/22/23 17:57 MCHC 34.9 g/dL (30-55) 12/22/23 17:57 RDW 11.9 % (12.1-15.1) L 12/22/23 17:57 Plt Count 152 10^3/cmm (157-399) L 12/22/23 17:57 MPV 12.7 fL (7.4-10.4) H 12/22/23 17:57 Neut % (Auto) 70.6 % 12/22/23 17:57 Lymph % (Auto) 23.4 % 12/22/23 17:57 [place] % (Auto) 5.2 % 12/22/23 17:57 Eos % (Auto) 0.4 % 12/22/23 17:57 Baso % (Auto) 0.1 % 12/22/23 17:57 Neut # (Auto) 5.15 10^3/uL (1.8-7.7) 12/22/23 17:57 Lymph # (Auto) 1.7 10^3/uL (0.8-4.8) 12/22/23 17:57 [place] # (Auto) 0.4 10^3/uL (0.2-0.9) 12/22/23 17:57 Eos # (Auto) 0.0 10^3/uL (0.0-0.8) 12/22/23 17:57 Baso # (Auto) 0.0 10^3/uL (0.0-0.1) 12/22/23 17:57 Nucleated RBC % (auto) 0 % 12/22/23 17:57 Nucleated RBCs # 0.0 /100WBC 12/22/23 17:57 Sodium 137 mmol/L (136-145) 12/22/23 17:57 Potassium 3.9 mmol/L (3.5-5.1) 12/22/23 17:57 Chloride 102 mmol/L (98-107) 12/22/23 17:57 Carbon Dioxide 19 mmol/L (22-29) L 12/22/23 17:57 Anion Gap 19.9 (5-19) H 12/22/23 17:57 BUN 15 mg/dL (6-20) 12/22/23 17:57 Creatinine 0.6 mg/dL (0.5-0.9) 12/22/23 17:57 GFR Calculation 119.0 mL/min (90-130) 12/22/23 17:57 Glucose 84 mg/dL (65-115) 12/22/23 17:57 Calculated Osmolality 284 mOsm/kg (285-295) L 12/22/23 17:57 Calcium 9.4 mg/dL (8.5-10.5) 12/22/23 17:57 Total Bilirubin 0.7 mg/dL (0.15-1.2) 12/22/23 17:57 AST 12 U/L (0-32) 12/22/23 17:57 ALT 8 U/L (0-33) 12/22/23 17:57 Alkaline Phosphatase 59 U/L (35-105) 12/22/23 17:57 Total Protein 7.7 g/dL (6.6-8.7) 12/22/23 17:57 Albumin 4.8 g/dL (3.5-5.2) 12/22/23 17:57 Globulin 2.9 g/dL (1.3-4.6) 12/22/23 17:57 Ser , Semi-Qnt 105226.00 mIU/mL 12/22/23 17:57 Urine Color Dark yellow (Yellow) 12/22/23 18:35 Urine Appearance Turbid (CLEAR) A 12/22/23 18:35 Urine pH 6 (5-7) 12/22/23 18:35 Ur Specific [place] 1.025 (1.005-1.030) 12/22/23 18:35 Urine Protein Trace (Negative) 12/22/23 18:35 Urine Glucose (UA) Norm (Normal) 12/22/23 18:35 Urine Ketones 2+ (Negative) H 12/22/23 18:35 Urine Blood 2+ (Negative) H 12/22/23 18:35 Urine Nitrate Negative (Negative) 12/22/23 18:35 Urine Bilirubin 1+ (Negative) H 12/22/23 18:35 Urine Urobilinogen 4 mg/dL (Negative) H 12/22/23 18:35 Ur Leukocyte Esterase 1+ (Negative) H 12/22/23 18:35 Urine RBC 0-4 /hpf (0-2) H 12/22/23 18:35 Urine WBC 5-10 /hpf (0-5) H 12/22/23 18:35 Ur Squamous Epith Cells 0-4 /hpf (0-5) H 12/22/23 18:35 Amorphous Sediment Not Reportable 12/22/23 18:35 Urine Bacteria 4+ /hpf (NONE) H 12/22/23 18:35 Urine Mucus 1+ /hpf 12/22/23 18:35 No radiology studies performed this visit Discharge Plan Discharge Patient Disposition: Home Clinical Impression: Thrombocytopenia affecting , Hyperemesis arising during , Urinary tract infection affecting Condition: Stable Prescriptions: New ondansetron 4 mg tablet,disintegrating 4 mg PO Q6H PRN (Reason: nausea and vomiting) Qty: 30 0RF cephalexin 500 mg capsule 500 mg PO Q6H 7 Days Qty: 28 0RF No Action diclofenac sodium 75 mg tablet,delayed release (DR/EC) 75 mg PO BID Qty: 20 0RF ibuprofen 200 mg Capsule 400 mg PO Q6H PRN (Reason: Pain) citalopram 40 mg tablet 40 mg PO DAILY sumatriptan succinate 50 mg Tablet 50 mg PO Q2H PRN (Reason: Migraine Headache) Rx Instructions: do not exceed 4 doses per 24 hrs Mucinex DM 60-1,200 mg tablet extended release 12 hr 1 tab PO BID PRN (Reason: cold symptoms) Qty: 14 0RF Discharge Orders: Discharge ED (Routine); Ordered 12/22/23 Ordered By: Johnathon Ann Referrals: Darin Lane MD [Primary Care Provider] - 1-3 days Patient Instructions: Nausea and Vomiting in (ED), Urinary Tract Infection in (ED), Opioid Safety, Pain Management Activity Restrictions/Additional Instructions: Take the nausea medication scheduled for the next 48 hours, whether you feel nauseated or not. Follow a clear liquid diet for the next 24 hours, then you may add solid slowly back into your diet if no vomiting. Return for fever, abdominal pain, vaginal bleeding, any other concerning symptoms. Coding Level of Care Code ED Remote Encoding Center Manager for Reyg Aida
[2023-12-22] MEDS: metoclopramide 5 mg/mL SDV 2 mL 10 MG IVP (19:02)
[2023-12-22 19:10] LABS: Add Urine Microscopic? YES; Bacteria Urine 4+ /hpf; Bilirubin Urine 1+ (Negative); Blood Urine 2+ (Negative); Glucose Urine UA Norm (Normal); Ketones Urine 2+ (Negative); Leukocyte Esterase Urine 1+ (Negative); Mucus Urine 1+ /hpf; Nitrate Urine Negative (Negative); Protein Urine Trace (Negative); RBC Urine 0-4 /hpf (0-2); Specific Gravity, Urine 1.025 (1.005-1.030); Squamous Epithelial Cell Urine 0-4 /hpf (0-5); Urine Appearance Turbid (CLEAR); Urine Color Dark Yellow (Yellow); Urobilinogen Urine 4 mg/dL (Negative); pH Urine 6 (5-7)
[2023-12-22 19:11] LABS: Add Urine Culture? Yes
[2023-12-22] MEDS: cefTRIAXone 1,000 MG in sodium chloride 0.9% (plus) 50 ML 100 MG IV (19:47)
[2023-12-22 20:36] VITALS: PULSE 64; O2SAT 99
== END 2023-12-22 20:38 | disposition home or self-care (01) ==
PROVIDERS: Family Medicine; Emergency Provider Emergency Medicine; PCP Family Medicine
DX: O99.111 Other diseases of the blood and blood-forming organs and certain disorders involving the immune mechanism complicating pregnancy, first trimester (principal); D69.6 Thrombocytopenia, unspecified; O21.0 Mild hyperemesis gravidarum; O23.41 Unspecified infection of urinary tract in pregnancy, first trimester; N39.0 Urinary tract infection, site not specified; Z3A.01 Less than 8 weeks gestation of pregnancy; O99.331 Smoking (tobacco) complicating pregnancy, first trimester; F17.200 Nicotine dependence, unspecified, uncomplicated
CPT/HCPCS: 80053; 81001; 84702; 85025; 87077; 87086; 87186; 96361; 96365; 96375; 99284; J0696; J2405; J2765; J7030

== ENCOUNTER 2024-05-01 10:22 | Oncology outpatient (recurring) (ONCR) | payer BC, MEDICAID, SELFPAY ==
[2024-05-01] MEDS: rho(d) immune globulin 1,500 unit Syringe 1500 UNIT IM (11:09)
[2024-05-01 11:17] VITALS: BP 99/63; PULSE 84; RESP 16; TEMP 36.9; O2SAT 97
--- NOTE | 2024-05-01 11:22 | PC.NURSE ---
Pt's RH status confirmed via ABO group/RHtype by Flory Tapia RN
== END 2024-05-22 23:59 | disposition home or self-care (01) ==
PROVIDERS: PCP Family Medicine; Visit Provider Family Medicine
DX: Z79.899 Other long term (current) drug therapy (principal); Z67.31 Type AB blood, Rh negative
CPT/HCPCS: 96372; J2790

== ENCOUNTER 2024-07-13 11:33 | Outpatient (CLI) | payer BC, MEDICAID, SELFPAY ==
[2024-07-13 11:30] VITALS: BMI 27.2
[2024-07-13 11:44] VITALS: BP 122/73; PULSE 87
[2024-07-13 12:04] VITALS: BP 118/68; PULSE 71
[2024-07-13 12:24] VITALS: BP 122/79; PULSE 83
[2024-07-13 12:44] VITALS: BP 114/81; PULSE 88
[2024-07-13 13:04] VITALS: BP 119/76; PULSE 80
== END 2024-07-13 13:25 | disposition home or self-care (01) ==
LOC: OPOB 11:33 → OBGYN 11:34
PROVIDERS: PCP Family Medicine; Visit Provider Family Medicine
DX: O26.899 Other specified pregnancy related conditions, unspecified trimester (principal); Z3A.00 Weeks of gestation of pregnancy not specified; Z91.81 History of falling
CPT/HCPCS: 59025; 99211

== ENCOUNTER 2024-07-30 01:15 | Inpatient (IN) | payer BC, MEDICAID, SELFPAY ==
[2024-07-30] VITALS (69 sets, daily range): BP systolic 101–138; BP diastolic 57–90; PULSE 72–109; RESP 15–18; TEMP 35.9–37.1; O2SAT 96–99; BMI 27.7
[2024-07-30] MEDS: sodium chloride 0.9% 1,000 ML 999 ML IV (02:18)
[2024-07-30 02:32] LABS: Basophils % 0.2 %; Eosinophils # 0.1 10^3/uL (0.0-0.8); Eosinophils % 0.5 %; Hematocrit 36.8 % (36-47); Lymphocytes # 1.4 10^3/uL (0.8-4.8); Lymphocytes % 14.8 %; Mean Corpuscular HGB Conc 32.1 g/dL (30-55); Mean Corpuscular Hemoglobin 29.5 pg (27-33); Mean Platelet Volume 13.3 fL (7.4-10.4); Monocytes # 0.6 10^3/uL (0.2-0.9); Monocytes % 5.8 %; Neutrophils % 78.3 %; Nucleated Red Blood Cells % 0 %; Platelet Count 108 10^3/cmm (157-399); Red Cell Distribution Width 13.2 % (12.1-15.1); White Blood Count 9.71 10^3/uL (3.29-11.43)
[2024-07-30 02:40] LABS: Amphetamines Screen Urine Negative (Negative); Barbiturates Screen Urine Negative (Negative); Benzodiazepines Screen Urine Negative (Negative); Cocaine Screen Urine Negative (Negative); Opiate Screen Urine Negative (Negative); PCP Screen Urine Negative (Negative); THC Screen Urine Negative (Negative)
--- NOTE | 2024-07-30 02:58 | PM.OPHPUD ---
Labor & Delivery H&P Update Date of Procedure: July 30, 2024 Date H&P Performed: 07/29/24 Changes to previous documentation: The patient is in active labor with cervical change Admission Diagnosis: 29-year-old 3 para 2-0-0-2 at 39 weeks estimated gestational age Planned procedure: Spontaneous vaginal delivery Other information: The patient is a 29-year-old female who has had an unremarkable . She has received consistent care. She arrived to the hospital after having contractions for several hours prior to arriving at the hospital. They were getting progressively worse and more consistent. Her blood type is A-. Her antibody screen is negative. She was THC positive. She passed her glucose screen. She is rubella nonimmune. She is GBS negative. The remainder of her infectious disease profile is within normal limits. Related Problem List Diagnoses (1) 39 weeks gestation of : A&P Assessment and plan (1) 39 weeks gestation of : I anticipate routine labor and vaginal delivery. Status: Acute
[2024-07-30 03:03] LABS: Slide Review Slide Review Perform
[2024-07-30] MEDS: calcium carbonate 500 mg Chew Tablet 1000 MG PO ×4 (03:22→17:02)
--- NOTE | 2024-07-30 03:42 | ANES.PROC ---
Anesthesia Procedures Procedure/Date: 07/30/24 Epidural: Time Out Performed: Yes Consents Signed: Procedure Consent Consent: requested by attending/covering physician, from patient, risks and benefits reviewed and patient agrees to proceed Lumbar Level: L3-L4 Epidural position: sitting Epidural procedure: sterile prep of area, 1% lidocaine to numb the area, 18 g needle, neg for paresthesia, test dose given, 1.5% xylocaine 1:200k epi (5cc), 0.2% Ropivacaine bolus ml (4cc and Fentanyl 100mcg), placed PCEA, no systemic response, sterile dressing applied, L.U.D. no apparent complications and 0.2% Ropiavacaine @ mls/hr (13cc/hour) Additional Comments: Pt tolerated well
[2024-07-30] MEDS: ROPivacaine syringe 100 MG/50 ML SYRINGE 13 MG EPIDURAL ×2 (03:43→07:04)
--- NOTE | 2024-07-30 03:45 | P.ANESASSM_ITS ---
Pre-Anesthetic Assessment Height/Weight: Height 1.68 m Weight 78.018 kg Temp Pulse Resp BP Pulse Ox O2 Del Method 98.7 F 98 16 114/74 97 Room Air 07/30/24 02:11 07/30/24 03:39 07/30/24 02:11 07/30/24 03:39 07/30/24 03:34 07/30/24 02:02 Preop Diagnosis: Labor pain CAROLEE Was Beta Niranjan taken within 24 hours: N/A Was Clonidine taken within 24 hours: N/A Social No alcohol and No tobacco Exam alert, oriented x 3, clear to auscultation bilaterally and regular rate & rhythm Airway Submandibular: within normal limits Cervical ROM: within normal limits Mallampati: Class II Dentition: full History/ROS No significant history except as noted and No significant complaints CV/HEM None reported None reported Hepatic None reported GI None reported Metabolic None reported Musc/skel None reported Neuropsych None reported Anesthetic Plan ASA status: 2 Anesthesia: Anesthesia Evaluation and Regional (specify below) (CAROLEE) Risk of > 500 ml blood loss (7ml/kg in children): No Medications/Allergies Home Medications Medication Instructions Recorded Confirmed Last Taken Type ibuprofen 200 mg capsule 400 mg PO Q6H PRN Pain 10/23/22 07/30/24 Unknown History citalopram 40 mg tablet 40 mg PO DAILY 06/16/23 07/30/24 06/15/23 History sumatriptan succinate 50 mg tablet 50 mg PO Q2H PRN Migraine Headache 06/16/23 07/30/24 Unknown History diclofenac sodium 75 mg 75 mg PO BID #20 tabs 07/11/23 07/30/24 Unknown Rx tablet,delayed release dextromethorphan-guaifenesin ER 60 1 tab PO BID PRN cold symptoms #14 09/21/23 07/30/24 Unknown Rx mg-1,200 mg tab,extend tabs release,12hr (Mucinex DM) ondansetron 4 mg disintegrating 4 mg PO Q6H PRN nausea and 12/22/23 07/30/24 Unknown Rx tablet vomiting #30 tabs Allergies Allergy/AdvReac Type Severity Reaction Status Date / Time azithromycin [From Zithromax] Allergy ADR-Vomitin Verified 07/30/24 00:54 g clavulanic acid Allergy ADR-Vomitin Verified 07/30/24 00:54 [From Augmentin] g metronidazole [From Flagyl] Allergy ALGY-Hives Verified 07/30/24 00:54 Current Medications Generic Name Dose Route Start Last Admin Trade Name Jailene PRN Reason Stop Dose Admin Calcium Carbonate 1,000 mg 07/30/24 02:11 07/30/24 03:22 Calcium Carbonate 500 Mg Chew Tablet PO 1,000 mg Q4H PRN Administration Heartburn/Indigestion (Use 1st) Ropivacaine 100 mg in 50 mls @ 10 mls/hr 07/30/24 01:45 07/30/24 03:43 Naropin Syringe EPIDURAL 13 mls/hr .Q5H QUIANA Administration Sodium Chloride 1,000 mls @ 999 mls/hr 07/30/24 01:31 07/30/24 02:18 Sodium Chloride 0.9% IV 999 mls/hr .Q1H1M PRN Administration See label comments PFSH Anesthesia Medical History No significant past medical history Surgical History H/O oral surgery Social History Smoking and tobacco/nicotine status: current some day tobacco/nicotine user Female Reproductive History : 3 Data Anesthesia 07/30/24 01:46 Short CBC 07/30/24 Range/Units 01:46 WBC 9.71 (3.29-11.43) 10^3/uL Hgb 11.80 (11.27-16.99) g/dL Hct 36.8 (36-47) % MCV 92.0 (85-98) fl Plt Count 108 L (157-399) 10^3/cmm Neut % (Auto) 78.3 % Neut # (Auto) 7.60 (1.8-7.7) 10^3/uL Blood Bank 07/30/24 01:46 Blood Type A Negative Rho(D) Type Rh negative Cardiac Studies: 2 No Data to Display
[2024-07-30] MEDS: dextrose 5%-sod chloride 0.45% 1,000 ML 125 ML IV (05:00)
[2024-07-30] MEDS: dextrose 5%-lactated ringers 1,000 ML 125 ML IV (05:01)
[2024-07-30] MEDS: oxytocin 30 UNIT/500 ML BAG 600 UNIT IV (07:29)
[2024-07-30] MEDS: ibuprofen 800 mg tablet PO ×3 (08:43→21:11)
[2024-07-30] MEDS: PRENATAL VIT NO.130/IRON/FOLIC 1 EACH TABLET PO (08:43)
[2024-07-30] MEDS: docusate sodium 100 mg Capsule PO ×2 (08:44→17:02)
[2024-07-30] MEDS: HYDROcodone-acetaminophen 5-325 mg Tablet PO ×2 (16:14→22:53)
[2024-07-30 21:47] LABS: Hematocrit 31.5 % (36-47); Mean Corpuscular HGB Conc 32.1 g/dL (30-55); Mean Corpuscular Volume 93.5 fl (85-98); Mean Platelet Volume 13.3 fL (7.4-10.4); Platelet Count 88 10^3/cmm (157-399); Red Blood Count 3.37 10^6/uL (3.85-5.65); Red Cell Distribution Width 13.3 % (12.1-15.1); White Blood Count 7.49 10^3/uL (3.29-11.43)
[2024-07-31 04:00] VITALS: BP 117/75; PULSE 82; RESP 18; TEMP 36.7
[2024-07-31] MEDS: HYDROcodone-acetaminophen 5-325 mg Tablet PO (04:36)
--- NOTE | 2024-07-31 06:17 | PM.DELIVERY ---
Delivery Note: Date of delivery: July 31, 2024 Pre-delivery diagnoses: 29-year-old 3 para 2-0-0-2 at 39 weeks estimated gestational age in active labor Post-delivery diagnoses: Status post spontaneous vaginal delivery Procedure: Spontaneous vaginal delivery Delivering Physician: Darin Lane Estimated blood loss (mL): 100 Pre-Delivery Course: The patient presented to the hospital in active labor. An epidural was placed. An amniotomy was performed. She progressed to complete without difficulty. Delivery: DELIVERY: The patient progressed to complete without difficulty. She delivered a male with a weight of 7 pounds 6 ounces with Apgars of 8, 9. The baby was delivered from the DAMION position. The baby's mouth and nose were suctioned at the site of the perineum. The baby was then completely delivered and placed on the mother's abdomen. The cord was then clamped and cut. There was no meconium. The placenta and 3 vessel cord were delivered intact shortly thereafter. The perineum and vaginal vault were carefully examined. No lacerations were noted. Both the mother and the baby were in stable condition. Post-Delivery Status: Good A&P Assessment and plan (1) 39 weeks gestation of : I anticipate routine care. Coding Level of Care Code Acute Code for Chg Fwd Diagnoses 39 weeks gestation of Z3A.39
--- NOTE | 2024-07-31 06:20 | PM.OBGYDC ---
Discharge Providers UPHOLSTERER INSIDE Date of Admission: 07/30/24 01:15 Date of Discharge: 08/01/24 Attending Provider at Admission: Darin Lane MD Attending Provider at Discharge: Darin Lane MD Primary Care Provider: Darin Lane MD Diagnoses at Discharge Discharge Diagnosis (1) 39 weeks gestation of : Status: Resolved Reason for Visit Reason for Visit: CTX Hospital Course Hospital Course The patient presented in active labor. An epidural was placed. An amniotomy was performed. She progressed to complete without difficulty. Vaginal delivery was unremarkable. Her course was also unremarkable. Her bleeding was within normal limits. Her pain was well-controlled. She bottle-fed her baby. Her platelet counts are 88,000 and will be rechecked before she is discharged. Information Peripartum Data: Infant Delivery Method: Vaginal Physical Exam Narrative: The patient is alert. She appears comfortable. Her heart has a regular rate and rhythm with no murmurs appreciated. Lungs are clear to auscultation bilaterally. Her fundus is firm and below the umbilicus. Urinary Catheter Management: Yancey: Cath Placed During This Visit: yes, but has since been removed by the nurse Reason for Continuing Indwelling Catheter: Decision to DC Catheter Urinary Catheter Date of Insertion: 07/30/24 Urinary Catheter Time of Insertion: 04:17 Date Urinary Catheter Removed: 07/30/24 Time Urinary Catheter Discontinued: 07:19 Discharge Data Studies Completed and Pending Laboratory Results WBC 7.49 10^3/uL (3.29-11.43) 07/30/24 21:15 RBC 3.37 10^6/uL (3.85-5.65) L 07/30/24 21:15 Hgb 10.10 g/dL (11.27-16.99) L 07/30/24 21:15 Hct 31.5 % (36-47) L 07/30/24 21:15 MCV 93.5 fl (85-98) 07/30/24 21:15 MCH 30.0 pg (27-33) 07/30/24 21:15 MCHC 32.1 g/dL (30-55) 07/30/24 21:15 RDW 13.3 % (12.1-15.1) 07/30/24 21:15 Plt Count 88 10^3/cmm (157-399) L 07/30/24 21:15 MPV 13.3 fL (7.4-10.4) H 07/30/24 21:15 Neut % (Auto) 78.3 % 07/30/24 01:46 Lymph % (Auto) 14.8 % 07/30/24 01:46 Riley % (Auto) 5.8 % 07/30/24 01:46 Eos % (Auto) 0.5 % 07/30/24 01:46 Baso % (Auto) 0.2 % 07/30/24 01:46 Neut # (Auto) 7.60 10^3/uL (1.8-7.7) 07/30/24 01:46 Lymph # (Auto) 1.4 10^3/uL (0.8-4.8) 07/30/24 01:46 Riley # (Auto) 0.6 10^3/uL (0.2-0.9) 07/30/24 01:46 Eos # (Auto) 0.1 10^3/uL (0.0-0.8) 07/30/24 01:46 Baso # (Auto) 0.0 10^3/uL (0.0-0.1) 07/30/24 01:46 Nucleated RBC % (auto) 0 % 07/30/24 01:46 Nucleated RBCs # 0.0 /100WBC 07/30/24 01:46 Urine Opiates Screen Negative ng/mL (Negative) 07/30/24 01:35 Ur Barbiturates Screen Negative ng/mL (Negative) 07/30/24 01:35 Ur Phencyclidine Scrn Negative ng/mL (Negative) 07/30/24 01:35 Ur Amphetamines Screen Negative ng/mL (Negative) 07/30/24 01:35 U Benzodiazepines Scrn Negative ng/mL (Negative) 07/30/24 01:35 Urine Cocaine Screen Negative ng/mL (Negative) 07/30/24 01:35 U Marijuana (THC) Screen Negative ng/mL (Negative) 07/30/24 01:35 Blood Type A Negative 07/30/24 01:46 Rho(D) Type Rh negative 07/30/24 01:46 Antibody Screen Positive 07/30/24 01:46 Antibody Identification No Clinically Significant ABID 07/30/24 01:46 Screen Negative (Negative) 07/30/24 21:15 Vitals Last Vital Signs Temp 98.1 F 07/31/24 04:00 Pulse 82 07/31/24 04:00 Resp 18 07/31/24 04:00 BP 117/75 07/31/24 04:00 Pulse Ox 99 07/30/24 17:00 O2 Del Method Room Air 07/30/24 17:00 Results Labs OB ([facility]): Obstetrics US 05/26/24 Blood Type A Negative 07/30/24 Antibody Screen Positive 07/30/24 Hct 31.6 % (36-47) L 07/31/24 Hgb 10.10 g/dL (11.27-16.99) L 07/31/24 Rho(D) Type Rh negative 07/30/24 Plt Count 87 10^3/cmm (157-399) L 07/31/24 Ser , Semi-Qnt 236041.00 mIU/mL 12/22/23 HCG, Qual Negative (Negative) 06/16/23 Urine Opiates Screen Negative ng/mL (Negative) 07/30/24 Ur Barbiturates Screen Negative ng/mL (Negative) 07/30/24 Ur Phencyclidine Scrn Negative ng/mL (Negative) 07/30/24 Ur Amphetamines Screen Negative ng/mL (Negative) 07/30/24 U Benzodiazepines Scrn Negative ng/mL (Negative) 07/30/24 Urine Cocaine Screen Negative ng/mL (Negative) 07/30/24 U Marijuana (THC) Screen Negative ng/mL (Negative) 07/30/24 Micro Urine Specimen 12/22/23 Discharge Plan Discharge Patient Disposition: Home Condition: Stable Prescriptions: New ibuprofen 800 mg Tablet 800 mg PO TID Qty: 45 0RF Vitamin 27 mg iron- 800 mcg Tablet 1 tab PO DAILY Qty: 90 0RF Discontinued diclofenac sodium 75 mg tablet,delayed release (DR/EC) 75 mg PO BID Qty: 20 0RF ondansetron 4 mg tablet,disintegrating 4 mg PO Q6H PRN (Reason: nausea and vomiting) Qty: 30 0RF ibuprofen 200 mg Capsule 400 mg PO Q6H PRN (Reason: Pain) citalopram 40 mg tablet 40 mg PO DAILY sumatriptan succinate 50 mg Tablet 50 mg PO Q2H PRN (Reason: Migraine Headache) Rx Instructions: do not exceed 4 doses per 24 hrs dextromethorphan-guaifenesin [Mucinex DM] 60-1,200 mg tablet extended release 12 hr 1 tab PO BID PRN (Reason: cold symptoms) Qty: 14 0RF Discharge Orders: Discharge Order (Routine); Ordered 07/31/24 Ordered By: Darin Lane Referrals: Darin Lane MD [Primary Care Provider] - 09/10/24 8:50 am Discharge Diet: Usual diet Discharge Activity: Limit activity as instructed Patient Instructions: Depression (DC), Bleeding (DC), Preeclampsia and Eclampsia After Delivery (GEN), Hemorrhage (DC), OB Discharge Report, OB Food/Drug Interaction Guide, OB Care at Home, Opioid Safety, OB Vaginal Deliveries Discharge Attestations UPHOLSTERER INSIDE Time Spent in Discharge Care*: less than 30 min Coding Level of Care Code Acute Code for Chg Fwd Diagnoses 39 weeks gestation of Z3A.39
[2024-07-31 07:42] LABS: Basophils % 0.4 %; Eosinophils # 0.1 10^3/uL (0.0-0.8); Eosinophils % 1.1 %; Hematocrit 30.6 % (36-47); Lymphocytes # 1.4 10^3/uL (0.8-4.8); Lymphocytes % 18.7 %; Mean Corpuscular Hemoglobin 30.8 pg (27-33); Mean Corpuscular Volume 96.2 fl (85-98); Mean Platelet Volume 12.9 fL (7.4-10.4); Monocytes # 0.4 10^3/uL (0.2-0.9); Monocytes % 5.2 %; Neutrophils # 5.41 10^3/uL (1.8-7.7); Neutrophils % 73.9 %; Nucleated Red Blood Cells % 0 %; Platelet Count 76 10^3/cmm (157-399); Red Blood Count 3.18 10^6/uL (3.85-5.65); Red Cell Distribution Width 13.3 % (12.1-15.1); White Blood Count 7.32 10^3/uL (3.29-11.43)
--- NOTE | 2024-07-31 08:03 | ANE.PACU2 ---
Inpatient post-anesthesia follow up: Airway intact: Yes Vital signs: Temperature 98.1 F Pulse Rate 82 Respiratory Rate 18 Blood Pressure 117/75 Pulse Oximetry 99 Oxygen Delivery Me thod Room Air Oxygen Flow Rate Fraction of Inspir ed Oxygen Hydration adequate: Yes Nausea and vomiting: No Pain level: 2 Mental status: Baseline Epidural Start/End: Epidural Start Date: 07/30/24 Epidural Start Time: 03:25 Epidural End Date: 07/30/24 Epidural End Time: 07:40
[2024-07-31] MEDS: docusate sodium 100 mg Capsule PO (09:03)
[2024-07-31] MEDS: ibuprofen 800 mg tablet PO ×2 (09:04→16:48)
[2024-07-31] MEDS: PRENATAL VIT NO.130/IRON/FOLIC 1 EACH TABLET PO (09:04)
[2024-07-31 09:06] VITALS: BP 110/77; PULSE 77; RESP 15; TEMP 36.6; TEMP 36.7; O2SAT 99
[2024-07-31 14:08] LABS: Hematocrit 31.6 % (36-47); Mean Corpuscular Hemoglobin 30.1 pg (27-33); Mean Platelet Volume 12.6 fL (7.4-10.4); Platelet Count 87 10^3/cmm (157-399); Red Blood Count 3.36 10^6/uL (3.85-5.65); Red Cell Distribution Width 13.6 % (12.1-15.1); White Blood Count 6.97 10^3/uL (3.29-11.43)
[2024-07-31 16:24] VITALS: BP 117/76; PULSE 75; RESP 16; TEMP 36.6; TEMP 36.7; O2SAT 98
--- NOTE | 2024-07-31 16:25 | PC.NURSE ---
Pt refused MMR vaccine.
[2024-07-31 17:50] VITALS: BP 117/77; PULSE 75; RESP 15; TEMP 36.6; O2SAT 98
== END 2024-07-31 17:50 | disposition home or self-care (01) | DRG 807 ==
LOC: OPOB 08:39 → OBGYN 08:39
PROVIDERS: Admitting Provider Family Medicine; PCP Family Medicine; Visit Provider Family Medicine
DX: O80 Encounter for full-term uncomplicated delivery (principal); Z37.0 Single live birth; Z3A.39 39 weeks gestation of pregnancy
CPT/HCPCS: 36415; 36430; 51702; 59025; 59409; 80306; 85025; 85027; 85460; 86850; 86870; 86900; 90384; 96374; 99211; J2590; J2795; J3010; J7030; J7121; J7799

== ENCOUNTER 2024-09-07 12:35 | Emergency (ER) | payer BC, MEDICAID, SELFPAY ==
[2024-09-07 13:03] VITALS: BP 110/72; PULSE 81; RESP 18; TEMP 36.5; O2SAT 95
[2024-09-07 14:36] LABS: Influenza A NEGATIVE (Negative); Influenza B NEGATIVE (Negative); Respiratory Syncytial Virus Ce NEGATIVE (Negative); SARS-CoV-2 PCR NEGATIVE (Negative)
--- NOTE | 2024-09-07 15:38 | ED_ITS ---
HPI - URI/Sore Throat General: Chief Complaint: Upper Respiratory Infection Stated Complaint: congestion,cough Time Seen by Provider: 09/07/24 14:08 History of Present Illness: Patient is a 29-year-old female that presents to the emergency department with cough, congestion, fever, chills, body aches. Onset of symptoms approximately 2 weeks ago. Symptoms have largely improved. She is taking qzsp-dwm-yyldycj agents like DayQuil, NyQuil, Tylenol and Motrin. She has no chronic medical conditions and takes no routine medicines other than a vitamin. She is 1 month Related Data Previous Rx's ?Medication ?Instructions ?Recorded ibuprofen 800 mg tablet 800 mg PO TID #45 tabs 07/31 vits no.130-ferrous fum 1 tab PO DAILY #90 ta bs 07/31/24 27 mg iron-folic acid 800 mcg tablet ( Vitamin) Allergies Allergy/AdvReac Type Severity Reaction Status Date / Time azithromycin (From Zithromax) Allergy ADR-Vomitin Verified 07/30/24 00:54 g clavulanic acid (From Allergy ADR-Vomitin Verified 07/30/24 00:54 Augmentin) g metronidazole (From Flagyl) Allergy ALGY-Hives Verified 07/30/24 00:54 Review of Systems General: Reports: 10 or more systems reviewed and unremarkable except in HPI and below PFSH ED PFSH: Medical History No significant past medical history Surgical History H/O oral surgery Social History Smoking and tobacco/nicotine status: current some day tobacco/nicotine user Physical Exam Const: COMMON NORMALS: no acute distress, patient oriented x3 and alert GENERAL APPEARANCE: cooperative ORIENTATION/CONSCIOUSNESS: Yes awake, Yes oriented to person, Yes oriented to place and Yes oriented to time HENMT: COMMON NORMALS: normocephalic and atraumatic HEAD & SCALP: normocephalic and atraumatic FACE & SINUS: normal facial exam MOUTH: Normal oral and palatal mucosa present THROAT: posterior oropharynx normal Eye: COMMON NORMALS: Equal, round and reactive pupils present, EOMs intact bilaterally, conjunctivae normal and no scleral icterus GENERAL EYE: appearance normal, both eyes and all related structures ALIGNMENT: Yes ali gnment normal PERIORBITAL: periorbital findings normal CONJUNCTIVA: Yes conjunctivae normal PUPIL: Yes Equal, round and reactive pupils present Neck/C-Spine: COMMON NORMALS: full ROM GENERAL: Yes normal visual inspection Lymph: LYMPHATIC: no lymphadenopathy noted Chest: COMMONS NORMALS: normal inspection of the chest Breast/axilla inspection: Yes no chest deformity, asymmetry, normal contours, no nodules, masses, tenderness Resp: COMMON NORMALS: normal respiratory effort, No retractions, No use of accessory muscles and clear to auscultation bilaterally EFFORT & INSPECTION: Yes able to speak in complete sentences and Yes symmetric chest movement AUSCULTATION: clear to auscultation bilaterally Cardio: COMMON NORMALS: regular rate, regular rhythm and Peripheral pulses 2+ throughout RATE: regular rate RHYTHM: regular rhythm PERIPHERAL PULSES: Peripheral pulses 2+ throughout GI: COMMON NORMALS: Normal to inspection, nondistended, normoactive bowel sounds present, Soft to palpation, non-tender and No hepatosplenomegaly present INSPECTION: Yes normal to inspection AUSCULTATION: Yes normoactive bowel sounds PALPATION: Yes Soft to palpation and Yes No hepatosplenomegaly present RECTAL EXAM: deferred Neuro: COMMON NORMALS: patient oriented x3 SENSORIUM/ORIENTATION: Yes alert, Yes oriented to person, Yes oriented to place and Yes oriented to time CRANIAL NERVES: Yes CN normal except as noted Psych: COMMON NORMALS: mental status grossly normal, Normal thought process present, cooperative, activity/motor behavior normal, denies homicidal ideation and denies suicidal ideation THOUGHT PROCESS: Normal thought process present Course Vital Signs: Vital signs: Vital Signs Temperature 97.7 F 09/07/24 13:03 Pulse Rate 81 09/07/24 13:03 Respiratory Rate 18 09/07/24 13:03 Blood Pressure 110/72 09/07/24 13:03 Pulse Oximetry 95 09/07/24 13:03 Oxygen Delivery Me thod Room Air 09/07/24 13:03 MDM - URI/Sore Throat Medical Decision Making Patient is a 29-year-old female who presents to the emergency department with cough, congestion fevers and chills. Onset of symptoms 2 weeks ago and largely her symptoms have been resolved. She underwent COVID influenza RSV testing which was negative. Her lung sounds are clear. At this time no further diagnostics are warranted and all questions were answered Lab Data Laboratory Results Coronavirus (PCR) Negative (Negative) 09/07/24 13:39 Influenza A (PCR) Negative (Negative) 09/07/24 13:39 Influenza Type B (PCR) Negative (Negative) 09/07/24 13:39 RSV (PCR) Negative (Negative) 09/07/24 13:39 No radiology studies performed this visit Discharge Plan Discharge Patient Disposition: Home Clinical Impression: Upper respiratory infection Condition: Stable Prescriptions: No Action ibuprofen 800 mg Tablet 800 mg PO TID Qty: 45 0RF Vitamin 27 mg iron- 800 mcg Tablet 1 tab PO DAILY Qty: 90 0RF Discharge Orders: Discharge ED (Routine); Ordered 09/07/24 Ordered By: José Antonio Woodruff Referrals: Darin Lane MD [Primary Care Provider] - Discharge Diet: Advance as tolerated Discharge Activity: Resume usual activity Patient Instructions: Cold Symptoms (ED), Pain Management Activity Restrictions/Additional Instructions: Please monitor symptoms closely. Please return to the emergency department for new, concerning, worsening symptoms Print Language: Nigerian Coding Level of Care Code ED Adjunct Psychology Professor for Kevin Parra
[2024-09-07 16:12] VITALS: BP 112/72; PULSE 80; RESP 16; O2SAT 96
== END 2024-09-07 16:12 | disposition home or self-care (01) ==
PROVIDERS: Family Medicine; Emergency Provider Nurse Practitioner; PCP Family Medicine
DX: J06.9 Acute upper respiratory infection, unspecified (principal); Z11.52 Encounter for screening for COVID-19; Z72.0 Tobacco use
CPT/HCPCS: 87637; 99283

== ENCOUNTER 2024-10-09 22:50 | Emergency (ER) | payer BC, MEDICAID, SELFPAY ==
[2024-10-09 22:54] VITALS: BP 107/69; PULSE 91; RESP 14; TEMP 36.4; O2SAT 97
[2024-10-09 22:59] VITALS: BP 124/69; PULSE 94; RESP 16; O2SAT 98
--- NOTE | 2024-10-09 23:05 | W.ED.HA ---
HPI - Headache General: Chief Complaint: Headache Stated Complaint: migraine already took prescription at 930 Time Seen by Provider: 10/09/24 22:55 Source: patient Mode of arrival: ambulatory Limitations: no limitations History of Present Illness: Patient is a 29-year-old female presents to ED today with a complaint of a migraine headache. She states she has a long standing history of migraine headaches and normally can take abortive sumatriptan at home. Patient states she took this medication today without relief. States her headache today feels identical to previous migraines. She states she is has had to come to the ED before for migraines and the typical migraine cocktail seems to work. She is not having any neck pain or stiffness. No fevers. No visual changes. MD elicited complaint: headache and migraine Pertinent past history: migraines Onset (ago): hour(s) Severity: severe Pain scale (0-10): 10 Exacerbating factors: none Relieving factors: nothing Associated symptoms: Reports nausea; Deny chest pain, confusion, fever(s), malaise, rash or vomiting Treatments prior to arrival: other (sumatriptan) Related Data Previous Rx's ?Medication ?Instructions ?Recorded ibuprofen 800 mg tablet 800 mg PO TID #45 tabs 07/31/24 vits no.130-ferrous fum 1 tab PO DAILY #90 tabs 07/31/24 27 mg iron-folic acid 800 mcg tablet ( Vitamin) Allergies Allergy/AdvReac Type Severity Reaction Status Date / Time azithromycin (From Zithromax) Allergy ADR-Vomitin Verified 10/09/24 22:56 g clavulanic acid (From Allergy ADR-Vomitin Verified 10/09/24 22:56 Augmentin) g metronidazole (From Flagyl) Allergy ALGY-Hives Verified 10/09/24 22:56 Review of Systems Const: Denies: fever(s), chills, body aches, fatigue or malaise Eyes: Denies: change in vision, blurry vision, photophobia, floaters or seeing flashes ENMT: Denies: throat pain or odynophagia Card: Denies: chest pain Resp: Denies: dyspnea GI: Reports: nausea; Denies: abdominal pain or vomiting Musc: Denies: neck pain or joint pain Skin/Breast: Denies: rash Neuro: Reports: headache(s); Denies: numbness in extremities, weakness in extremities, sensory changes, lack of coordination, difficulty walking, dizziness, confusion, behavioral changes, Slurred speech present, difficulty communicating thoughts or seizure-like activity PFSH ED PFSH: Medical History No significant past medical history Surgical History H/O oral surgery Social History Smoking and tobacco/nicotine status: current some day tobacco/nicotine user Physical Exam Const: COMMON NORMALS: no acute distress, average body habitus, patient oriented x3, no limitations, healthy appearing, alert and well nourished HENMT: COMMON NORMALS: normocephalic and atraumatic HEAD & SCALP: normal to inspection, normocephalic and atraumatic FACE & SINUS: sinuses nontender and face symmetric Eye: COMMON NORMALS: Equal, round and reactive pupils present and EOMs intact bilaterally GENERAL EYE: appearance normal, both eyes and all related structures and normal light reflex PUPIL: Yes Equal, round and reactive pupils present DIRECT OPHTHALMOSCOPY: Yes normal light reflex Neck/C-Spine: COMMON NORMALS: no meningeal signs and no JVD GENERAL: Yes normal visual inspection, No anterior neck swelling and No submandibular swelling Cardio: COMMON NORMALS: no JVD Neuro: [place]AMA COMA SCALE: document GCS findings [place] coma scale eye opening: Spontaneous [place] coma scale verbal response: Orientated [place] coma scale motor response: Obey commands [place] coma scale total score: 15 COMMON NORMALS: patient oriented x3, CN's II-XII intact bilaterally, moves all extremities, no focal motor deficits, no sensory deficits noted and gait normal SENSORIUM/ORIENTATION: Yes alert MENINGEAL SIGNS: Yes no meningeal signs Skin: COMMON NORMALS: no rashes or lesions noted GENERAL SKIN EXAM: no rashes or lesions noted Course Vital Signs: Vital signs: Vital Signs Temperature 97.6 F 10/09/24 22:54 Pulse Rate 84 10/09/24 23:33 Respiratory Rate 18 10/09/24 23:33 Blood Pressure 112/69 10/09/24 23:33 Pulse Oximetry 97 10/09/24 23:33 Oxygen Delivery Me thod Room Air 10/09/24 22:59 MDM - Headache Medical Decision Making Patient's headache feeling better after medications given here. She feels comfortable going home at this point. Differential Diagnosis Likely migraine Medical Records I reviewed the patient's medical records. No radiology studies performed this visit Discharge Plan Discharge Patient Disposition: Home Clinical Impression: Migraine Qualifiers: Migraine type: unspecified Status migrainosus presence: without status migrainosus Intractability: not intractable Qualified Code(s): G43.909 - Migraine, unspecified, not intractable, without status migrainosus Condition: Stable Prescriptions: No Action ibuprofen 800 mg Tablet 800 mg PO TID Qty: 45 0RF Vitamin 27 mg iron- 800 mcg Tablet 1 tab PO DAILY Qty: 90 0RF Discharge Orders: Discharge ED (Routine); Ordered 10/10/24 Ordered By: Mary Hernandez Referrals: Darin Lane MD [Primary Care Provider] - Patient Instructions: Headache - Migraine (Adult) Print Language: Albanian Coding Level of Care Code ED Dietary Aid for Kevin Parra
[2024-10-09] MEDS: diphenhydrAMINE 50 mg/mL SDV 1mL 25 MG IVP (23:29)
[2024-10-09] MEDS: ketorolac 60 mg/2 mL INJ 30 MG IVP (23:30)
[2024-10-09] MEDS: ondansetron 2 mg/ML SDV 2 mL 4 MG IVP (23:31)
[2024-10-09] MEDS: dexamethasone 10 mg/mL INJ 6 MG IVP (23:32)
[2024-10-09 23:33] VITALS: BP 112/69; PULSE 84; RESP 18; O2SAT 97
[2024-10-10 00:32] VITALS: BP 112/66; PULSE 61; RESP 16; O2SAT 96
== END 2024-10-10 00:27 | disposition home or self-care (01) ==
PROVIDERS: Emergency Provider Physician Assistant; PCP Family Medicine
DX: G43.909 Migraine, unspecified, not intractable, without status migrainosus (principal); Z72.0 Tobacco use
CPT/HCPCS: 96374; 96375; 99284; J1100; J1200; J1885; J2405

== ENCOUNTER 2024-12-25 10:35 | Emergency (ER) | payer BC, MEDICAID, SELFPAY ==
[2024-12-25 10:40] VITALS: BP 100/66; PULSE 81; RESP 16; TEMP 36.6; O2SAT 97; BMI 20.1
--- NOTE | 2024-12-25 11:01 | ECG_ITS ---
[facility] 2024-12[facility]25 Pat Name: Diana Guzman Department: Room: Gender: Female Nutrition Teacher: : 1995 Requested By: Lokesh Farley Order Number: [id number] Liv MD: SIMONE MALIK Measurements Intervals [place] Rate: 81 P: 57 TX: 175 QRS: 52 QRSD: 94 T: 31 QT: 385 QTc: 448 Interpretive Statements SINUS RHYTHM WITH SINUS ARRHYTHMIA NONSPECIFIC T-WAVE ABNORMALITY No previous ECG available for comparison Electronically Signed On 12-27-2024 23:49:04 CDT by SIMONE MALIK [email or web address] [id number]
[2024-12-25] MEDS: meclizine 25 mg tablet PO (11:09)
[2024-12-25 11:10] LABS: Basophils % 0.5 %; Eosinophils # 0.1 10^3/uL (0.0-0.8); Eosinophils % 1.2 %; Lymphocytes # 0.9 10^3/uL (0.8-4.8); Lymphocytes % 21.1 %; Mean Corpuscular HGB Conc 34.7 g/dL (30-55); Mean Corpuscular Hemoglobin 31.4 pg (27-33); Mean Corpuscular Volume 90.3 fl (85-98); Mean Platelet Volume 12.8 fL (7.4-10.4); Monocytes # 0.2 10^3/uL (0.2-0.9); Monocytes % 4.1 %; Neutrophils # 3.04 10^3/uL (1.8-7.7); Neutrophils % 72.9 %; Nucleated Red Blood Cells % 0 %; Platelet Count 154 10^3/cmm (157-399); Red Blood Count 4.21 10^6/uL (3.85-5.65); Red Cell Distribution Width 12.6 % (12.1-15.1); White Blood Count 4.17 10^3/uL (3.29-11.43)
[2024-12-25] MEDS: sodium chloride 0.9% 1,000 ML 999 ML IV (11:11)
[2024-12-25 11:12] VITALS: BP 109/64; PULSE 81; RESP 16; O2SAT 95
[2024-12-25 11:21] LABS: HCG, Serum Qual Negative (Negative)
[2024-12-25 11:26] LABS: Alanine Aminotransferase 11 U/L (0-33); Albumin Level 4.5 g/dL (3.5-5.2); Alkaline Phosphatase 46 U/L (35-105); Aspartate Amino Transferase 14 U/L (0-32); Blood Urea Nitrogen 22 mg/dL (6-20); Carbon Dioxide 23 mmol/L (22-29); Chloride 107 mmol/L (98-107); Creatinine Clr Calc Pharmacy 109.0634; Globulin 2.1 g/dL (1.3-4.6); Glomerular Filtration Rate 98.9 mL/min (90-130); Glucose 202 mg/dL (65-115); Osmolality Calculated 301 mOsm/kg (285-295); Sodium 141 mmol/L (136-145); Total Bilirubin 0.4 mg/dL (0.15-1.2); Total Protein 6.6 g/dL (6.6-8.7)
--- NOTE | 2024-12-25 12:25 | W.ED.DIZZY ---
HPI - Dizziness General: Chief Complaint: Dizziness Stated Complaint: dizzy, nausea Time Seen by Provider: 12/25/24 10:45 History of Present Illness: HPI Narrative: This patient is a 29-year-old white female who presents to the emergency department complaining of dizziness. Patient states she woke up with this. She has been nauseous and has a mild headache. She describes the dizziness as a spinning sensation. She has not had any upper respiratory congestion. No earaches. She has no chronic medical problems. Associated symptoms: Reports headache(s) and nausea Related Data Home Medications ?Medication ?Instructions ?Recorded ?Confirmed sumatriptan succinate 25 mg tablet 25 mg PO PRN PRN Headache 12/25/24 12/25/24 Previous Rx's ?Medication ?Instructions ?Recorded ibuprofen 800 mg tablet 800 mg PO TID #45 tabs 07/31/24 vits no.130-ferrous fum 1 tab PO DAILY #90 tabs 07/31/24 27 mg iron-folic acid 800 mcg tablet ( Vitamin) meclizine 25 mg tablet 25 mg PO TID PRN dizziness #20 tabs 12/25/24 Allergies Allergy/AdvReac Type Severity Reaction Status Date / Time azithromycin (From Zithromax) Allergy ADR-Vomitin Verified 10/09/24 22:56 g clavulanic acid (From Allergy ADR-Vomitin Verified 10/09/24 22:56 Augmentin) g metronidazole (From Flagyl) Allergy ALGY-Hives Verified 10/09/24 22:56 Review of Systems General: Reports: 10 or more systems reviewed and unremarkable except in HPI and below GI: Reports: nausea Neuro: Reports: headache(s) and dizziness [facility] ED PFSH: Medical History No significant past medical history Surgical History H/O oral surgery Social History Smoking and tobacco/nicotine status: current some day tobacco/nicotine user Physical Exam Const: COMMON NORMALS: no acute distress, patient oriented x3 and no limitations GENERAL APPEARANCE: cooperative and comfortable HENMT: COMMON NORMALS: normocephalic, atraumatic, Normal nasal mucous membranes and turbinates present, moist oral mucous membranes and oropharynx normal HEAD & SCALP: normal to inspection, normocephalic and atraumatic FACE & SINUS: normal facial exam NOSE: Normal nasal mucous membranes and turbinates present Eye: COMMON NORMALS: Equal, round and reactive pupils present, EOMs intact bilaterally and conjunctivae normal GENERAL EYE: appearance normal, both eyes and all related structures CONJUNCTIVA: Yes conjunctivae normal PUPIL: Yes Equal, round and reactive pupils present Neck/C-Spine: COMMON NORMALS: supple and no JVD Chest: COMMONS NORMALS: normal inspection of the chest Resp: COMMON NORMALS: normal respiratory effort and clear to auscultation bilaterally AUSCULTATION: clear to auscultation bilaterally Cardio: COMMON NORMALS: no JVD, regular rate, regular rhythm, No gallops present (Cardio), No murmurs present (Cardio) and No rub (Cardio) RATE: regular rate RHYTHM: regular rhythm GI: COMMON NORMALS: Normal to inspection, nondistended, normoactive bowel sounds present, Soft to palpation and non-tender AUSCULTATION: Yes normoactive bowel sounds PALPATION: Yes Soft to palpation : COMMON NORMALS: Yes no CVA tenderness BLADDER/KIDNEY EXAM: Yes no CVA tenderness Back/Pelvis: COMMON NORMALS: no CVA tenderness and thoracic and lumbar spine normal to inspection Extremity: COMMON NORMALS: normal to inspection Neuro: COMMON NORMALS: patient oriented x3 and CN's II-XII intact bilaterally Psych: COMMON NORMALS: mental status grossly normal, Normal thought process present and cooperative THOUGHT PROCESS: Normal thought process present Skin: COMMON NORMALS: no rashes or lesions noted, turgor normal and no jaundice GENERAL SKIN EXAM: no rashes or lesions noted and turgor normal Course Vital Signs: Vital signs: Vital Signs Temperature 97.8 F 12/25/24 10:40 Pulse Rate 81 12/25/24 11:12 Respiratory Rate 16 12/25/24 11:12 Blood Pressure 109/64 12/25/24 11:12 Pulse Oximetry 95 12/25/24 11:12 Oxygen Delivery Me thod Room Air 12/25/24 10:40 MDM - Dizziness Medical Decision Making EKG revealed sinus rhythm with no ST segment abnormalities. CBC was normal. CMP normal except for blood sugar of 202. test was negative. Patient was given 25 mg of meclizine p.o. She states she is feeling significantly better. She was discharged in stable condition with a prescription for meclizine. Recommended she follow-up with her primary care provider within 1 week for recheck. She was also also need recheck of her blood sugar with appropriate testing if elevated. Lab Data 12/25/24 10:51 12/25/24 10:51 Laboratory Results WBC 4.17 10^3/uL (3.29-11.43) 12/25/24 10:51 RBC 4.21 10^6/uL (3.85-5.65) 12/25/24 10:51 Hgb 13.20 g/dL (11.27-16.99) 12/25/24 10:51 Hct 38.0 % (36-47) 12/25/24 10:51 MCV 90.3 fl (85-98) 12/25/24 10:51 MCH 31.4 pg (27-33) 12/25/24 10:51 MCHC 34.7 g/dL (30-55) 12/25/24 10:51 RDW 12.6 % (12.1-15.1) 12/25/24 10:51 Plt Count 154 10^3/cmm (157-399) L 12/25/24 10:51 MPV 12.8 fL (7.4-10.4) H 12/25/24 10:51 Neut % (Auto) 72.9 % 12/25/24 10:51 Lymph % (Auto) 21.1 % 12/25/24 10:51 [place] % (Auto) 4.1 % 12/25/24 10:51 Eos % (Auto) 1.2 % 12/25/24 10:51 Baso % (Auto) 0.5 % 12/25/24 10:51 Neut # (Auto) 3.04 10^3/uL (1.8-7.7) 12/25/24 10:51 Lymph # (Auto) 0.9 10^3/uL (0.8-4.8) 12/25/24 10:51 [place] # (Auto) 0.2 10^3/uL (0.2-0.9) 12/25/24 10:51 Eos # (Auto) 0.1 10^3/uL (0.0-0.8) 12/25/24 10:51 Baso # (Auto) 0.0 10^3/uL (0.0-0.1) 12/25/24 10:51 Nucleated RBC % (auto) 0 % 12/25/24 10:51 Nucleated RBCs # 0.0 /100WBC 12/25/24 10:51 Sodium 141 mmol/L (136-145) 12/25/24 10:51 Potassium 4.0 mmol/L (3.5-5.1) 12/25/24 10:51 Chloride 107 mmol/L (98-107) 12/25/24 10:51 Carbon Dioxide 23 mmol/L (22-29) 12/25/24 10:51 Anion Gap 15.0 (5-19) 12/25/24 10:51 BUN 22 mg/dL (6-20) H 12/25/24 10:51 Creatinine 0.7 mg/dL (0.5-0.9) 12/25/24 10:51 GFR Calculation 98.9 mL/min (90-130) 12/25/24 10:51 Glucose 202 mg/dL (65-115) H 12/25/24 10:51 Calculated Osmolality 301 mOsm/kg (285-295) H 12/25/24 10:51 Calcium 10.0 mg/dL (8.5-10.5) 12/25/24 10:51 Total Bilirubin 0.4 mg/dL (0.15-1.2) 12/25/24 10:51 AST 14 U/L (0-32) 12/25/24 10:51 ALT 11 U/L (0-33) 12/25/24 10:51 Alkaline Phosphatase 46 U/L (35-105) 12/25/24 10:51 Total Protein 6.6 g/dL (6.6-8.7) 12/25/24 10:51 Albumin 4.5 g/dL (3.5-5.2) 12/25/24 10:51 Globulin 2.1 g/dL (1.3-4.6) 12/25/24 10:51 HCG, Qual Negative (Negative) 12/25/24 10:51 No radiology studies performed this visit Discharge Plan Discharge Patient Disposition: Home Clinical Impression: Hyperglycemia Benign paroxysmal positional vertigo Qualifiers: Laterality: unspecified laterality Qualified Code(s): H81.10 - Benign paroxysmal vertigo, unspecified ear Condition: Stable Prescriptions: New meclizine 25 mg tablet 25 mg PO TID PRN (Reason: dizziness) Qty: 20 0RF No Action ibuprofen 800 mg Tablet 800 mg PO TID Qty: 45 0RF Vitamin 27 mg iron- 800 mcg Tablet 1 tab PO DAILY Qty: 90 0RF sumatriptan succinate 25 mg tablet 25 mg PO PRN PRN (Reason: Headache) Discharge Orders: Discharge ED (Routine); Ordered 12/25/24 Ordered By: Lokesh Farley Referrals: Darin Lane MD [Primary Care Provider, Family Practice] Patient Instructions: Hyperglycemia, Benign Paroxysmal Positional Vertigo (DC) Activity Restrictions/Additional Instructions: Follow-up with your primary care physician within 1 week for recheck. Have them recheck your blood sugar as well. If it continues to be elevated you may need further workup for diabetes. Print Language: Uzbek Coding Level of Care Code ED Integrated Campaign Manager for Kevin Parra
== END 2024-12-25 12:52 | disposition home or self-care (01) ==
PROVIDERS: Emergency Provider Emergency Medicine; PCP Family Medicine
DX: H81.10 Benign paroxysmal vertigo, unspecified ear (principal); R73.9 Hyperglycemia, unspecified; Z72.0 Tobacco use
CPT/HCPCS: 36415; 80053; 84703; 85025; 93005; 99284; J7030; J8597

== ENCOUNTER → 2025-03-27 17:23 | Outpatient (BNVA) | payer BC, MEDICAID, SELFPAY | PROVIDERS: PCP Family Medicine | DX: R39.9 Unspecified symptoms and signs involving the genitourinary system (principal) | CPT/HCPCS: 81000 ==

== ENCOUNTER 2025-03-30 08:23 | Emergency (ER) | payer BC, MEDICAID, SELFPAY ==
[2025-03-30 08:28] VITALS: BP 104/72; PULSE 82; RESP 16; TEMP 36.3; O2SAT 99; BMI 20.5
--- NOTE | 2025-03-30 08:57 | W.ED.ABDPA2 ---
HPI - Abdominal Pain General: Chief Complaint: Abdominal Pain Stated Complaint: L side abd pain, LEAHY x4 days, n/v/d/f, weakness Time Seen by Provider: 03/30/25 08:45 History of Present Illness: Associated Symptoms: Reports fever(s), nausea and vomiting; Denies chills and dysuria Related Data Home Medications ?Medication ?Instructions ?Recorded ?Confirmed sumatriptan succinate 25 mg tablet 25 mg PO PRN PRN Headache 12/25/24 03/27/25 Previous Rx's ?Medication ?Instructions ?Recorded ibuprofen 800 mg tablet 800 mg PO TID #45 tabs 07/31/24 vits no.130-ferrous fum 1 tab PO DAILY #90 tabs 07/31/24 27 mg iron-folic acid 800 mcg tablet ( Vitamin) meclizine 25 mg tablet 25 mg PO TID PRN dizziness #20 tabs 12/25/24 nitrofurantoin 100 mg PO Q12H 5 days #10 caps 03/27/25 monohydrate/macrocrystals 100 mg capsule (Macrobid) ondansetron 4 mg disintegrating 4 mg PO Q8H PRN nausea and 03/27/25 tablet vomiting #14 tabs Allergies Allergy/AdvReac Type Severity Reaction Status Date / Time azithromycin (From Zithromax) Allergy ADR-Vomitin Verified 03/27/25 17:00 g clavulanic acid (From Allergy ADR-Vomitin Verified 03/27/25 17:00 Augmentin) g metronidazole (From Flagyl) Allergy ALGY-Hives Verified 03/27/25 17:00 Review of Systems Const: Reports: fever(s); Denies: chills Card: Denies: chest pain Resp: Denies: dyspnea GI: Reports: abdominal pain, nausea and vomiting : Denies: dysuria, urinary frequency or urinary urgency Musc: Denies: neck pain or back pain Skin/Breast: Denies: rash PFSH ED PFSH: Medical History No significant past medical history Surgical History H/O oral surgery Social History Smoking and tobacco/nicotine status: never used tobacco/nicotine Physical Exam Const: COMMON NORMALS: no acute distress GENERAL APPEARANCE: cooperative and comfortable ORIENTATION/CONSCIOUSNESS: Yes awake, Yes oriented to person, Yes oriented to place and Yes oriented to time HENMT: COMMON NORMALS: normocephalic, atraumatic and hearing grossly normal bilaterally HEAD & SCALP: normocephalic and atraumatic Resp: COMMON NORMALS: normal respiratory effort, No retractions, No use of accessory muscles and clear to auscultation bilaterally AUSCULTATION: clear to auscultation bilaterally Cardio: COMMON NORMALS: regular rate, regular rhythm and No murmurs present (Cardio) RATE: regular rate RHYTHM: regular rhythm GI: COMMON NORMALS: Soft to palpation and No hepatosplenomegaly present AUSCULTATION: Yes normoactive bowel sounds PALPATION: Yes Soft to palpation, No Tenderness to palpation present (GI), No Guarding due to palpation present (GI) and Yes No hepatosplenomegaly present Extremity: COMMON NORMALS: normal to inspection, capillary refill normal, no clubbing, cyanosis or edema, no calf tenderness and no pedal edema Neuro: SENSORIUM/ORIENTATION: Yes oriented to person, Yes oriented to place and Yes oriented to time Skin: COMMON NORMALS: no rashes or lesions noted GENERAL SKIN EXAM: no rashes or lesions noted Course Vital Signs: Vital signs: Vital Signs Temperature 97.4 F L 03/30/25 08:28 Pulse Rate 82 03/30/25 08:28 Respiratory Rate 16 03/30/25 08:28 Blood Pressure 104/72 03/30/25 08:28 Pulse Oximetry 99 03/30/25 08:28 Oxygen Delivery Mt thod Room Air 03/30/25 08:28 Discharge Plan Discharge Condition: Stable Prescriptions: No Action ondansetron 4 mg tablet,disintegrating 4 mg PO Q8H PRN (Reason: nausea and vomiting) Qty: 14 0RF nitrofurantoin monohyd/m-cryst [Macrobid] 100 mg capsule 100 mg PO Q12H 5 Days Qty: 10 0RF Rx Instructions: must administer with a meal/food ibuprofen 800 mg Tablet 800 mg PO TID Qty: 45 0RF Vitamin 27 mg iron- 800 mcg Tablet 1 tab PO DAILY Qty: 90 0RF sumatriptan succinate 25 mg tablet 25 mg PO PRN PRN (Reason: Headache) [facility] 25 mg PO TID PRN (Reason: dizziness) Qty: 20 0RF Referrals: Darin Lane MD [Primary Care Provider, Family Practice] Print Language: Polish Coding Level of Care Code ED Airplane Rental Clerk for Reyg Aida
[2025-03-30 10:36] LABS: Hematocrit 41.2 % (36-47); Hemoglobin 13.50 g/dL (11.27-16.99); Mean Corpuscular HGB Conc 32.8 g/dL (30-55); Mean Corpuscular Hemoglobin 31.0 pg (27-33); Mean Corpuscular Volume 94.5 fl (85-98); Nucleated Red Blood Cells % 0 %; Platelet Count 142 10^3/cmm (157-399); Red Blood Count 4.36 10^6/uL (3.85-5.65); White Blood Count 4.68 10^3/uL (3.29-11.43)
[2025-03-30 10:52] LABS: Alanine Aminotransferase 12 U/L (0-33); Albumin Level 4.3 g/dL (3.5-5.2); Alkaline Phosphatase 53 U/L (35-105); Anion Gap 16.5 (5-19); Aspartate Amino Transferase 16 U/L (0-32); Blood Urea Nitrogen 15 mg/dL (6-20); Calcium 9.6 mg/dL (8.5-10.5); Carbon Dioxide 24 mmol/L (22-29); Chloride 104 mmol/L (98-107); Creatinine Clr Calc Pharmacy 128.0330; Globulin 3.5 g/dL (1.3-4.6); Glucose 98 mg/dL (65-115); Lipase 32 U/L (13-60); Osmolality Calculated 291 mOsm/kg (285-295); Potassium 4.5 mmol/L (3.5-5.1); Sodium 140 mmol/L (136-145); Total Protein 7.8 g/dL (6.6-8.7)
[2025-03-30 11:00] VITALS: BP 105/53; PULSE 77; O2SAT 99
[2025-03-30 11:03] LABS: HCG, Serum Qual Negative (Negative)
--- NOTE | 2025-03-30 11:08 | PC.NURSE ---
upon entering pt room, strong smell of THC noted.
--- NOTE | 2025-03-30 11:13 | W.ED.ABDPA2 ---
HPI - Abdominal Pain General: Chief Complaint: Abdominal Pain Stated Complaint: L side abd pain, LEAHY x4 days, n/v/d/f, weakness Time Seen by Provider: 03/30/25 08:45 History of Present Illness: 29-year-old female with history of recurrent UTIs who presents emergency room with left flank pain. States she has had a headache. She was diagnosed with a UTI and started on Macrobid. She has had some nausea but no vomiting. She said she had some bright red blood with one of her stools.She reports she had a temperature of 100.0 yesterday. She has taken some Tylenol Related Data Home Medications ?Medication ?Instructions ?Recorded ?Confirmed sumatriptan succinate 25 mg tablet 25 mg PO PRN PRN Headache 12/25/24 03/27/25 Previous Rx's ?Medication ?Instructions ?Recorded ibuprofen 800 mg tablet 800 mg PO TID #45 tabs 07/31/24 vits no.130-ferrous fum 1 tab PO DAILY #90 tabs 07/31/24 27 mg iron-folic acid 800 mcg tablet ( Vitamin) meclizine 25 mg tablet 25 mg PO TID PRN dizziness #20 tabs 12/25/24 nitrofurantoin 100 mg PO Q12H 5 days #10 caps 03/27/25 monohydrate/macrocrystals 100 mg capsule (Macrobid) ondansetron 4 mg disintegrating 4 mg PO Q8H PRN nausea and 03/27/25 tablet vomiting #14 tabs cefdinir 300 mg capsule 300 mg PO BID 10 days #20 caps 03/30/25 Allergies Allergy/AdvReac Type Severity Reaction Status Date / Time azithromycin (From Zithromax) Allergy ADR-Vomitin Verified 03/27/25 17:00 g clavulanic acid (From Allergy ADR-Vomitin Verified 03/27/25 17:00 Augmentin) g metronidazole (From Flagyl) Allergy ALGY-Hives Verified 03/27/25 17:00 Review of Systems Narrative: Constitutional symptoms: Negative except as documented in HPI. Skin symptoms: Negative except as documented in HPI. Eye symptoms: Negative except as documented in HPI. ENMT symptoms: Negative except as documented in HPI. Respiratory symptoms: Negative except as documented in HPI. Cardiovascular symptoms: Negative except as documented in HPI. Gastrointestinal symptoms: Negative except as documented in HPI. Genitourinary symptoms: Negative except as documented in HPI. Musculoskeletal symptoms: Negative except as documented in HPI. Neurologic symptoms: Negative except as documented in HPI. Psychiatric symptoms: Negative except as documented in HPI. Endocrine symptoms: Negative except as documented in HPI. [facility] ED PFSH: Medical History (Updated 03/30/25 @ 12:26 by Lizette Jane MD) No significant past medical history Surgical History H/O oral surgery Social History Smoking and tobacco/nicotine status: never used tobacco/nicotine Physical Exam Narrative: EXAM NARRATIVE: General: Alert, no acute distress. Skin: Warm, dry. Head: Normocephalic, atraumatic. Neck: Supple, trachea midline. Eye: Extraocular movements are intact. Ears, nose, mouth and throat: mucosa moist. Cardiovascular: Regular, Normal peripheral perfusion. Respiratory: Lungs are clear to auscultation, respirations are non-labored, breath sounds are equal, Symmetrical chest wall expansion. Gastrointestinal: Soft, some left lateral and left flank pain, Non distended Musculoskeletal: Normal ROM, no deformity. Neurological: Alert and oriented, No focal neurological deficit observed. Psychiatric: Cooperative, appropriate mood & affect. Course Vital Signs: Vital signs: Vital Signs Temperature 97.4 F L 03/30/25 08:28 Pulse Rate 50 L 03/30/25 12:00 Respiratory Rate 16 03/30/25 08:28 Blood Pressure 111/68 03/30/25 12:00 Pulse Oximetry 98 03/30/25 12:00 Oxygen Delivery Me thod Room Air 03/30/25 12:00 MDM - Abdominal Pain Medical Decision Making Medical decision making: Differential diagnosis including but not limited to and based on the above HPI, review of systems and physical exam: In this patient with flank pain would have concern for: Ureterolithiasis. Urinary tract infection. Appendicitis. Cholecystitis. Musculoskeletal / back pain. Pyelonephritis. Orders placed to evaluate differential diagnosis based on the above differential, HPI and physical exam Lab Review: Laboratory results were reviewed and interpreted by myself the emergency room physician. No leukocytosis. No anemia. No renal failure. Urine does still have about 6-10 whites but no bacteria. Possibly a partially treated urinary tract infection with Macrobid. Particularly given signs of pyelonephritis on the CT scan. CT of the abdomen pelvis with contrast: Focal area of decreased and patchy enhancement involving left kidney suspicious for pyelonephritis. No hydronephrosis. Retroverted uterus. Physiologic. Left corpus luteal cyst with surrounding fluid. This was reviewed and interpreted by myself the emergency room physician. I also reviewed the radiology report. I reviewed the patient's medical record. Reexamination: Patient remained stable. No increased work of breathing. No altered mental status. No focal motor deficits. Pain may be from bile nephritis from a partially treated urinary tract infection versus left ovarian cyst. Discussed this with the patient. Assessment and plan: Pyelonephritis Ovarian cyst ?Toradol and Rocephin in the emergency room - Discharged home - Discussed plan with patient. Answered any questions. - Evaluation and treatment of this problem were appropriate in the emergency setting. Lab Data 03/30/25 10:11 03/30/25 10:11 Labs/Radiology: Radiology Impressions Abdomen/Pelvis CT 03/30/25 11:26 IMPRESSION: 1. Focal area of decreased and patchy enhancement involving the LEFT kidney suspicious for pyelonephritis. Some of this may be due to prior cortical scarring from infection. No hydronephrosis. 2. Retroverted uterus with diffuse heterogeneous enhancement likely physiologic. Free fluid in the cul-de-sac. 3. Peripherally enhancing LEFT corpus luteum cyst measuring 2.1 cm with surrounding fluid. 4. Mild hepatomegaly and splenomegaly. Laboratory Results WBC 4.68 10^3/uL (3.29-11.43) 03/30/25 10:11 RBC 4.36 10^6/uL (3.85-5.65) 03/30/25 10:11 Hgb 13.50 g/dL (11.27-16.99) 03/30/25 10:11 Hct 41.2 % (36-47) 03/30/25 10:11 MCV 94.5 fl (85-98) 03/30/25 10:11 MCH 31.0 pg (27-33) 03/30/25 10:11 MCHC 32.8 g/dL (30-55) 03/30/25 10:11 RDW 12.6 % (12.1-15.1) 03/30/25 10:11 Plt Count 142 10^3/cmm (157-399) L 03/30/25 10:11 MPV 12.8 fL (7.4-10.4) H 03/30/25 10:11 Neut % (Auto) 69.7 % 03/30/25 10:11 Lymph % (Auto) 19.2 % 03/30/25 10:11 [place] % (Auto) 9.6 % 03/30/25 10:11 Eos % (Auto) 0.9 % 03/30/25 10:11 Baso % (Auto) 0.4 % 03/30/25 10:11 Neut # (Auto) 3.26 10^3/uL (1.8-7.7) 03/30/25 10:11 Lymph # (Auto) 0.9 10^3/uL (0.8-4.8) 03/30/25 10:11 [place] # (Auto) 0.5 10^3/uL (0.2-0.9) 03/30/25 10:11 Eos # (Auto) 0.0 10^3/uL (0.0-0.8) 03/30/25 10:11 Baso # (Auto) 0.0 10^3/uL (0.0-0.1) 03/30/25 10:11 Nucleated RBC % (auto) 0 % 03/30/25 10:11 Nucleated RBCs # 0.0 /100WBC 03/30/25 10:11 Sodium 140 mmol/L (136-145) 03/30/25 10:11 Potassium 4.5 mmol/L (3.5-5.1) 03/30/25 10:11 Chloride 104 mmol/L (98-107) 03/30/25 10:11 Carbon Dioxide 24 mmol/L (22-29) 03/30/25 10:11 Anion Gap 16.5 (5-19) 03/30/25 10:11 BUN 15 mg/dL (6-20) 03/30/25 10:11 Creatinine 0.6 mg/dL (0.5-0.9) 03/30/25 10:11 GFR Calculation 118.2 mL/min (90-130) 03/30/25 10:11 Glucose 98 mg/dL (65-115) 03/30/25 10:11 Calculated Osmolality 291 mOsm/kg (285-295) 03/30/25 10:11 Calcium 9.6 mg/dL (8.5-10.5) 03/30/25 10:11 Total Bilirubin 0.3 mg/dL (0.15-1.2) 03/30/25 10:11 AST 16 U/L (0-32) 03/30/25 10:11 ALT 12 U/L (0-33) 03/30/25 10:11 Alkaline Phosphatase 53 U/L (35-105) 03/30/25 10:11 Total Protein 7.8 g/dL (6.6-8.7) 03/30/25 10:11 Albumin 4.3 g/dL (3.5-5.2) 03/30/25 10:11 Globulin 3.5 g/dL (1.3-4.6) 03/30/25 10:11 Lipase 32 U/L (13-60) 03/30/25 10:11 HCG, Qual Negative (Negative) 03/30/25 10:11 Urine Color Yellow (Yellow) 03/30/25 11:00 Urine Appearance Cloudy (CLEAR) A 03/30/25 11:00 Urine pH 6.0 (5-7) 03/30/25 11:00 Ur Specific [place] 1.021 (1.005-1.030) 03/30/25 11:00 Urine Protein Negative (Negative) 03/30/25 11:00 Urine Glucose (UA) Negative (Normal) 03/30/25 11:00 Urine Ketones Negative (Negative) 03/30/25 11:00 Urine Blood Negative (Negative) 03/30/25 11:00 Urine Nitrate Negative (Negative) 03/30/25 11:00 Urine Bilirubin Negative (Negative) 03/30/25 11:00 Urine Urobilinogen 1.0 mg/dL (Negative) 03/30/25 11:00 Ur Leukocyte Esterase Trace (Negative) A 03/30/25 11:00 Urine RBC 0-2 /hpf (0-2) 03/30/25 11:00 Urine WBC 6-10 /hpf (0-5) 03/30/25 11:00 Ur Squamous Epith Cells 6-10 /hpf (0-5) 03/30/25 11:00 Amorphous Sediment Not Reportable 03/30/25 11:00 Urine Bacteria None seen /hpf (NONE) 03/30/25 11:00 Hyaline Casts 0.40 /lpf 03/30/25 11:00 All radiology interpretation(s) finalized by discharge Discharge Plan Discharge Patient Disposition: Home Clinical Impression: Pyelonephritis, Ovarian cyst Condition: Stable Prescriptions: New cefdinir 300 mg capsule 300 mg PO BID 10 Days Qty: 20 0RF No Action ondansetron 4 mg tablet,disintegrating 4 mg PO Q8H PRN (Reason: nausea and vomiting) Qty: 14 0RF nitrofurantoin monohyd/m-cryst [Macrobid] 100 mg capsule 100 mg PO Q12H 5 Days Qty: 10 0RF Rx Instructions: must administer with a meal/food ibuprofen 800 mg Tablet 800 mg PO TID Qty: 45 0RF Vitamin 27 mg iron- 800 mcg Tablet 1 tab PO DAILY Qty: 90 0RF sumatriptan succinate 25 mg tablet 25 mg PO PRN PRN (Reason: Headache) meclizine 25 mg tablet 25 mg PO TID PRN (Reason: dizziness) Qty: 20 0RF Discharge Orders: Discharge ED (Routine); Ordered 03/30/25 Ordered By: Lizette Jane Referrals: Darin Laen MD [Primary Care Provider, Family Practice] Discharge Diet: Usual diet Discharge Activity: Increase activity as tolerated Patient Instructions: Kidney Infection (ED), Opioid Safety, Pain Management, Patient Portal & Jorge Instructions Activity Restrictions/Additional Instructions: Discontinue Macrobid and start Omnicef. Thank you for choosing [facility] for your healthcare needs today. You have been screened and evaluated and felt safe for discharge. Health conditions do change or evolve sometimes and as such it is important that you follow up with your Primary Doctor to be re checked, 3-5 days is a general good time frame for follow up. You are always welcome to return to the ED for re assessment if your symptoms are worsening or you have new concerns Print Language: Djiboutian Coding Level of Care Code ED Blocker Metal Base for Kevin Parra
[2025-03-30 11:15] LABS: Glucose Urine UA Negative (Normal); Nitrate Urine Negative (Negative); Specific Gravity, Urine 1.021 (1.005-1.030)
[2025-03-30 11:17] LABS: Add Urine Microscopic? YES
--- NOTE | 2025-03-30 11:26 | CT_ITS ---
WS: [id number] CT ABDOMEN PELVIS TECHNIQUE: Contrast-enhanced CT of the abdomen and pelvis with coronal and sagittal reformatted images. CLINICAL INFORMATION: Abdominal pain COMPARISON: 2018 DLP: 340.[address] scans at [facility] use at least one of these dose optimization techniques: automated exposure control; mA and/or kV adjustment per patient size (includes targeted exams where dose is matched to clinical indication); or iterative reconstruction. FINDINGS: Mild hepatomegaly and splenomegaly. Normal GE junction. Lung bases are well aerated. Normal pancreas. Normal caliber abdominal aorta. Portal vein and splenic vein are patent. Adrenal glands are normal. No hydronephrosis. Small renal cysts. Patchy and decreased enhancement LEFT kidney laterally. Recommend correlation for pyelonephritis. No hydronephrosis. Normal gallbladder. Small fat-containing umbilical hernia. Diffuse patchy enhancement involving the uterus likely physiologic in a patient of this age. Retroverted uterus. Fluid in the cul-de-sac. Peripherally enhancing LEFT corpus luteum cyst with surrounding fluid measuring 2.1 cm. Free fluid in the cul-de-sac. CT/CT abdomen pelvis w con* [id number] IMPRESSION: 1. Focal area of decreased and patchy enhancement involving the LEFT kidney dai spicious for pyelonephritis. Some of this may be due to prior cortical scarring from infection. No hydronephrosis. 2. Retroverted uterus with diffuse heterogeneous enhancement likely physiologi c. Free fluid in the cul-de-sac. 3. Peripherally enhancing LEFT corpus luteum cyst measuring 2.1 cm with surrou nding fluid. 4. Mild hepatomegaly and splenomegaly.
[2025-03-30] MEDS: iohexol 350 mg/mL 500 mL Btl (per mL) IV (11:41)
[2025-03-30] MEDS: ondansetron 2 mg/ML SDV 2 mL 4 MG IVP (11:52)
[2025-03-30 12:00] VITALS: BP 111/68; PULSE 50; O2SAT 98
[2025-03-30] MEDS: cefTRIAXone 1,000 mg SDV 1000 MG IVP (12:25)
[2025-03-30 12:34] VITALS: BP 104/58; PULSE 48; O2SAT 99
== END 2025-03-30 12:35 | disposition home or self-care (01) ==
PROVIDERS: Family Medicine; Emergency Provider Emergency Medicine; PCP Family Medicine
DX: N12 Tubulo-interstitial nephritis, not specified as acute or chronic (principal); N83.12 Corpus luteum cyst of left ovary
CPT/HCPCS: 36415; 74177; 80053; 81001; 83690; 84703; 85025; 96374; 96375; 99285; J0696; J1885; J2405

== ENCOUNTER 2025-06-07 20:22 | Emergency (ER) | payer BC, MEDICAID, SELFPAY ==
--- OUTSIDE RECORDS SUMMARY | 2025-06-07 20:27 | XMS_ITS | Data Portability ---
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 Z34.83 Gestation period, 37 weeks [id number] Z3A.[id number] MD [facility] ([facility]) [address] [place] [address]590 5 07/22/2024 12:00:53 07/22/2024 13:09:20 Normal in multigravida [id number] 12344 Z34.83 Gestation period, 38 weeks [id number] Z3A.[id number] MD [facility] ([facility]) [address] [place] [address]47-078 5 07/29/2024 11:55:12 07/29/2024 15:31:41 Normal in multigravida [id number] 08265 Z34.83 Gestation period, 39 weeks [id number] Z3A.[id number] MD [facility] ([facility]) [address] [place] [address] 9[address]35-509 5 09/09/2024 12:35:28 09/11/2024 12:38:17 care [id number] Z39.2 [id number] Marcus Veloz DO [facility] ([facility]) [address] [place] [address] [id number] 5 09/15/2024 09:17:26 09/15/2024 09:50:52 Acute pharyngitis [id number] J02.9 signs and symptoms are suggestive of bacterial infection. will start abx. increase fluids, motrin prn. stay home for at least 24 hrs. Return to office with no improvemen t or any problems. Go to ER with severe worsening or severe problems. [id number] Francois Lane MD [facility] ([facility]) [address] [place] [phone] 5 09/29/2024 09:19:35 09/29/2024 10:00:04 Migraine [id number] G43.[id number] MD [facility] ([facility]) [address] [place] [address] [phone] 5 12/30/2024 11:05:34 12/30/2024 12:48:16 Migraine [id number] G43.909 Dizziness [id number] R42 42362 Hyperglycemia 39191042 R 73.9 [id number] FARZANA MACEDO [facility] ([facility]) [address] [place] [address] [phone] 5 02/09/2025 16:03:44 02/11/2025 10:14:37 Solar erythema [id number] L55.9 444 May use aloe vera with lidocaine bid, tylenol and ibu as needed for pain. RTC with any new or worsening symptoms. Health Concerns Section Related Observation LastModified by Organization Detai ls LastModified Time None Recorded Concern Status LastModified by Organization Details LastModified Time None Recorded Advance Directives Directive None Recorded Payers Insurance Date Sequence Insurance Name Policy Number Policy Covered Member ID Member ID Guarantor Name 04/17/2025 1 [employer] [place] ([place]ICA[place]AC[place] - HMO) [id number] Diana Guzman [id number] Diana Guzman Notes Date Note Type Note Provider Name and Address Organization Details Recorded Time 09/09/19 25 text/htm l VisitReported by PatientHPIFor associated symptoms, patient reportsvaginal dischargeandconstipationbut reportsno abnormal bleeding,no dysuria, andno fever. For onset/timing, patient reportsdate of delivery:. For quality, patient reportsnsvd. For context, patient reportsno complications,feeding choice: bottle, depression,good support from partner/family,resumed sexual activity yes, andresumed menstrual bleeding no. For contraception plan, patient reportsdeclines contraception. Francois Lane MD [address] [place] [address], [phone], [facility] 09/10/2024 11:22:48 09/15/19 25 text/htm [facility], chest and head congestion and runny nose for 3 days . Son was positive for RSV 1 week ago. She reports b/l ear pain for 1-2 days. Marcus Veloz DO [address] [place], [phone], [facility], [place]. 09/15/2024 09:48:20 09/30/19 25 text/htm l HeadacheReported by PatientHPIFor context, patient reportsrelated to trauma (injury in 2018). For associated symptoms, patient reportsvomiting (occ)but reportsno nausea. For location, patient reportsband around head. For severity, patient reportsmoderate. For duration, patient reportsintermittent episodes lasting: (hours). For onset/timing, patient reportsabrupt onset. For aggravating factors, patient reportsloud noiseandvisual stimuli or light. For alleviating factors, patient reportsprescription medication. Pt states when she takes the Sumatriptan it helps but sometimes it will only help for about a hour and then the headache comes back Pt states the headaches are usually starts in the right side/back of her head and wraps around to the front. Pt states she only takes 1/2 tablet because she is home with the kids.Pt states she is still having pain in her right shoulder radiating down her arm from a injury she sustained in 2018. Francois Lane MD [address] [place] [address], [phone], [facility], [place]. 09/29/2024 10:04:35 12/31/19 25 text/htm l HeadacheReported by PatientHPIFor context, patient reportsrelated to trauma (injury in 2018). For associated symptoms, patient reportsvomiting (occ)but reportsno nausea. For location, patient reportsfrontalandband around head. For severity, patient reportsmoderateandpain level 2/10. For duration, patient reportsintermittent episodes lasting: (hours). For onset/timing, patient reportsabrupt onset. For aggravating factors, patient reportsloud noiseandvisual stimuli or light. For alleviating factors, patient reportsprescription medication. Pt was in ER recently for dizziness, nausea, headache and blurred vision Pt was Dx with hyperglycemia and benign paroxysmal vertigo. Pt was told to have her blood sugar rechecked. Pt states she has a mild headache today, pt states she has a headache everyday. Pt states the 25mg of sumatriptan is not helping her headaches pt would like to go back to 50mg. Francois Lane MD [address] [place], [phone], [facility] 12/30/2024 12:38:18 02/10/20 25 text/htm l ROS as noted in the HPI walk inx2 days ago sunburn-generalized. Worse on her legs and feet. [place] no sunscreen. Has used some otc sunburn relief. Wants work note. FARZANA MACEDO [address] [place], [phone], [facility] 02/09/2025 16:42:24 OBGyn Episode Ob Episode Information Episode Created Date Number of Fetuses Patient Bloodtype Patient rh Status Prepregnancy Weight lbs Domestic Partner Domestic Partner Phone Father Name Butcher Helper Status 12/19/19 24 1 CLOSED Fetus Data First Name Last Name Admitted to NICU Weight (g) Sex Living Outcome Pediatric Complications Fetus ID Race Codes Race Delivery Type 3373.36 3704 M Full Term [id number] Gavin Calculation Initial Gavin Date Initial Exam Date Initial Exam Provider Initial Ultrasound Date Last Menstrual Period Date Ultra Sound Weeks Gestation 0 Eighteen To Twenty Week Gavin Update Ultra Sound Date Fundal Height At Umbil Quickening Date Ultra Sound Latest Weeks Gestation Final Gavin Confirmed By Final Gavin Confirmed Date Final Gavin Date Ultra Sound Latest Days Gestation 0 0 Menstrual History Last Menstrual Date Menses Monthly On Bcp Conception Prior Menses Frequency Hcg Plus Date Menarche Onset Age Delivery Information Delivery Date Delivery Type Labor Anesthesia Weeks Gestation Incision Type Labor Labor Length Hrs Delivered By Post Complications Tubal Sterilization Discharge Date Comments 2 38 fever Gamaliel Discharge Information Feeding Method Contraceptive Method Maternal HG B and HCT Levels Ob Episode Information Episode Created Date Number of Fetuses Patient Bloodtype Patient rh Status Prepregnancy Weight lbs Domestic Partner Domestic Partner Phone Father Name Butcher Helper Status 12/19/19 24 1 A Negative [place] CLOSED Fetus Data First Name Last Name Admitted to NICU Weight (g) Sex Living Outcome Pediatric Complications Fetus ID Race Codes Race Delivery Type Wilfredo 3458.63 9 M [id number] Problems Problem Notes marijuana posRh Negative- Rh ogam received on 05/01/24 Problem Name Start Date End Date Resolution Snomed Code Not e Normal in multigravida 01/18/2024 [id number] Gavin Calculation Initial Gavin Date Initial Exam Date Initial Exam Provider Initial Ultrasound Date Last Menstrual Period Date Ultra Sound Weeks Gestation 08/02/2024 12/19/2023 10/27/2023 0 Eighteen To Twenty Week Gavin Update Ultra Sound Date Fundal Height At Umbil Quickening Date Ultra Sound Latest Weeks Gestation Final Gavin Confirmed By Final Gavin Confirmed Date Final Gavin Date Ultra Sound Latest Days Gestation 0 08/02/19 25 0 Pre-daniel Flowsheet Flowsheet Date 12/19/2023 Barrios Score Blood Edema Fundus Height Fundus Units Glucose Ketones Leukocytes Nitrite Labor Signs Protein Cervic Dilation Cervic Effacement Cervic Station Type Weight in lbs Pre/Post Dialysis Refused Weight 138.820937744857 BP Diastolic BP Location Tested BP Systolic BP Type 60 100 sitting Fetus Heart Rate Present Fetus Movement Comments OBI, nausea and vomiting, al lergy symptoms Flowsheet Date 01/22/2024 Barrios Score Blood Edema Fundus Height Fundus Units Glucose Ketones Leukocytes Nitrite Labor Signs Protein Cervic Dilation Cervic Effacement Cervic Station Type Weight in lbs Pre/Post Dialysis Refused Weight 135.56489924604 BP Diastolic BP Location Tested BP Systolic BP Type 62 110 sitting Fetus Heart Rate Present A 172 Present Fetus Movement Comments NOB Nausea/vomiting, mild cr amping, headache, dizziness, constipation, back pain Flowsheet Date 02/19/2024 Barrios Score Blood Edema Fundus Height Fundus Units Glucose Ketones Leukocytes Nitrite Labor Signs Protein Cervic Dilation Cervic Effacement Cervic Station none trace Negative neg Type Weight in lbs Pre/Post Dialysis Refused 133.237364067494 BP Diastolic BP Location Tested BP Systolic BP Type 60 96 sitting Fetus Heart Rate Present A 158 Present Fetus Movement A Yes Comments intermittent cramping, vagin al discharge, nausea/vomiting, headache, dizziness Flowsheet Date 03/11/2024 Barrios Score Blood Edema Fundus Height Fundus Units Glucose Ketones Leukocytes Nitrite Labor Signs Protein Cervic Dilation Cervic Effacement Cervic Station none none Negative trace Type Weight in lbs Pre/Post Dialysis Refused 136.654598537591 BP Diastolic BP Location Tested BP Systolic BP Type 62 100 sitting Fetus Heart Rate Present A 156 Fetus Movement A Yes Comments mild occ cramping, burning w ith urination randomly, nausea/vomiting, headache, constipation Flowsheet Date 03/18/2024 Barrios Score Blood Edema Fundus Height Fundus Units Glucose Ketones Leukocytes Nitrite Labor Signs Protein Cervic Dilation Cervic Effacement Cervic Station Type Weight in lbs Pre/Post Dialysis Refused BP Diastolic BP Location Tested BP Systolic BP Type Fetus Heart Rate Present Fetus Movement Comments Flowsheet Date 03/19/2024 Barrios Score Blood Edema Fundus Height Fundus Units Glucose Ketones Leukocytes Nitrite Labor Signs Protein Cervic Dilation Cervic Effacement Cervic Station Type Weight in lbs Pre/Post Dialysis Refused BP Diastolic BP Location Tested BP Systolic BP Type Fetus Heart Rate Present Fetus Movement Comments u/s on 03/18/24, EGA 20.4, ED D 08/01/24. Unremarkable screening survey of anatomy. Posterior low-lying placenta. Recommend follow up evaluation of the placenta during the late second trimester. Flowsheet Date 03/19/2024 Barrios Score Blood Edema Fundus Height Fundus Units Glucose Ketones Leukocytes Nitrite Labor Signs Protein Cervic Dilation Cervic Effacement Cervic Station Type Weight in lbs Pre/Post Dialysis Refused BP Diastolic BP Location Tested BP Systolic BP Type Fetus Heart Rate Present Fetus Movement Comments RA completed for Healthy Delaney e Flowsheet Date 04/15/2024 Barrios Score Blood Edema Fundus Height Fundus Units Glucose Ketones Leukocytes Nitrite Labor Signs Protein Cervic Dilation Cervic Effacement Cervic Station 24 cm none none neg Type Weight in lbs Pre/Post Dialysis Refused 143.35616331371 BP Diastolic BP Location Tested BP Systolic BP Type 76 122 Fetus Heart Rate Present A 164 Present Fetus Movement A Yes Comments heartburn, nausea, cramping Flowsheet Date 04/15/2024 Barrios Score Blood Edema Fundus Height Fundus Units Glucose Ketones Leukocytes Nitrite Labor Signs Protein Cervic Dilation Cervic Effacement Cervic Station Type Weight in lbs Pre/Post Dialysis Refused BP Diastolic BP Location Tested BP Systolic BP Type Fetus Heart Rate Present Fetus Movement Comments order for RhoGam sent to [facility] Flowsheet Date 05/13/2024 Barrios Score Blood Edema Fundus Height Fundus Units Glucose Ketones Leukocytes Nitrite Labor Signs Protein Cervic Dilation Cervic Effacement Cervic Station 28 cm Type Weight in lbs Pre/Post Dialysis Refused 150.190444308346 BP Diastolic BP Location Tested BP Systolic BP Type 60 110 sitting Fetus Heart Rate Present A 156 Present Fetus Movement A Yes Comments nausea, constipation, dizzin ess, headaches,sob, heartburn, vaginal pressure after intercourse, pt declines glucose screen, pt did receive her Rhogam at [facility] Flowsheet Date 05/26/2024 Barrios Score Blood Edema Fundus Height Fundus Units Glucose Ketones Leukocytes Nitrite Labor Signs Protein Cervic Dilation Cervic Effacement Cervic Station Type Weight in lbs Pre/Post Dialysis Refused BP Diastolic BP Location Tested BP Systolic BP Type Fetus Heart Rate Present Fetus Movement Comments Flowsheet Date 05/27/2024 Barrios Score Blood Edema Fundus Height Fundus Units Glucose Ketones Leukocytes Nitrite Labor Signs Protein Cervic Dilation Cervic Effacement Cervic Station 29 cm none trace Negative neg Type Weight in lbs Pre/Post Dialysis Refused Weight 155.92838513138 BP Diastolic BP Location Tested BP Systolic BP Type 64 110 sitting Fetus Heart Rate Present A 150 Fetus Movement A Yes Comments script given for TDap and RS V, cramping, N/V, constipation, headache, sob, heartburn, intermittent vaginal pressure Flowsheet Date 05/28/2024 Barrios Score Blood Edema Fundus Height Fundus Units Glucose Ketones Leukocytes Nitrite Labor Signs Protein Cervic Dilation Cervic Effacement Cervic Station Type Weight in lbs Pre/Post Dialysis Refused BP Diastolic BP Location Tested BP Systolic BP Type Fetus Heart Rate Present Fetus Movement Comments U/S of 05/26/24 EDC-07/29/24,EG A-30.6, FHT-144, presentation vertex,placenta grade 1, no previa,adequate AFV, cervix unremarkable and closed, Flowsheet Date 06/10/2024 Barrios Score Blood Edema Fundus Height Fundus Units Glucose Ketones Leukocytes Nitrite Labor Signs Protein Cervic Dilation Cervic Effacement Cervic Station 32 cm none none Negative trace Type Weight in lbs Pre/Post Dialysis Refused Weight 158.066255046099 BP Diastolic BP Location Tested BP Systolic BP Type 62 110 Fetus Heart Rate Present A 138 Present Fetus Movement A Yes Comments mild cramping, N/V, constipa tion, headache, occ sob, heartburn, intermittent vaginal pressure. Pt has not gotten her TDap or RSV Flowsheet Date 06/24/2024 Barrios Score Blood Edema Fundus Height Fundus Units Glucose Ketones Leukocytes Nitrite Labor Signs Protein Cervic Dilation Cervic Effacement Cervic Station none 1+ [place] Lott trace Type Weight in lbs Pre/Post Dialysis Refused Weight 162.908613126880 BP Diastolic BP Location Tested BP Systolic BP Type 64 108 Fetus Heart Rate Present A 148 Present Fetus Movement A Yes Comments cramps, nausea, headaches, h eartburn, vaginal pressure, Flowsheet Date 06/26/2024 Barrios Score Blood Edema Fundus Height Fundus Units Glucose Ketones Leukocytes Nitrite Labor Signs Protein Cervic Dilation Cervic Effacement Cervic Station Type Weight in lbs Pre/Post Dialysis Refused BP Diastolic BP Location Tested BP Systolic BP Type Fetus Heart Rate Present Fetus Movement Comments Pt received RhoGam on @ [facility] Flowsheet Date 07/09/2024 Barrios Score Blood Edema Fundus Height Fundus Units Glucose Ketones Leukocytes Nitrite Labor Signs Protein Cervic Dilation Cervic Effacement Cervic Station 36 cm none 1+ [place] trace Type Weight in lbs Pre/Post Dialysis Refused Weight 163.191796112958 BP Diastolic BP Location Tested BP Systolic BP Type 72 126 Fetus Heart Rate Present A 148 Present Fetus Movement A Yes Comments pelvic pain, n/v, swelling i n feet, cramping, heartburnGroup B strep swab collected today Flowsheet Date 07/12/2024 Barrios Score Blood Edema Fundus Height Fundus Units Glucose Ketones Leukocytes Nitrite Labor Signs Protein Cervic Dilation Cervic Effacement Cervic Station Type Weight in lbs Pre/Post Dialysis Refused BP Diastolic BP Location Tested BP Systolic BP Type Fetus Heart Rate Present Fetus Movement Comments Group B strep NegativeOB rec ords faxed Flowsheet Date 07/18/2024 Barrios Score Blood Edema Fundus Height Fundus Units Glucose Ketones Leukocytes Nitrite Labor Signs Protein Cervic Dilation Cervic Effacement Cervic Station 37 cm none trace Negative Shreyas Lott trace 3cm 50% -3 Type Weight in lbs Pre/Post Dialysis Refused 169.017724863160 BP Diastolic BP Location Tested BP Systolic BP Type 70 118 sitting Fetus Heart Rate Present A 146 Present Fetus Movement A Yes Comments headache,dizziness, edema fe et/legs, heartburn, abdominal pain/cramping, constipation, pelvic pain, vaginal pressure Flowsheet Date 07/22/2024 Barrios Score Blood Edema Fundus Height Fundus Units Glucose Ketones Leukocytes Nitrite Labor Signs Protein Cervic Dilation Cervic Effacement Cervic Station none trace trace 4cm 50% -3 Type Weight in lbs Pre/Post Dialysis Refused Weight 168.126003609959 BP Diastolic BP Location Tested BP Systolic BP Type 76 124 Fetus Heart Rate Present A 144 Fetus Movement A Yes Comments headaches, vaginal pressure, heartburn, cramps, pelvic pain Flowsheet Date 07/29/2024 Barrios Score Blood Edema Fundus Height Fundus Units Glucose Ketones Leukocytes Nitrite Labor Signs Protein Cervic Dilation Cervic Effacement Cervic Station none trace Negative [place] Lott trace 4cm 60% -3 Type Weight in lbs Pre/Post Dialysis Refused Weight 169.734617032469 BP Diastolic BP Location Tested BP Systolic BP Type 78 136 sitting Fetus Heart Rate Present A 136 Present Fetus Movement A Yes Comments vaginal discharge/pressure, low back pain,pelvic pain, abdominal pain/cramping, edema in feet/hands, nausea,constipation, headache, dizziness,heartburn Flowsheet Date 09/09/2024 Barrios Score Blood Edema Fundus Height Fundus Units Glucose Ketones Leukocytes Nitrite Labor Signs Protein Cervic Dilation Cervic Effacement Cervic Station Type Weight in lbs Pre/Post Dialysis Refused Weight 157.928734407448 BP Diastolic BP Location Tested BP Systolic BP Type 74 120 sitting Fetus Heart Rate Present Fetus Movement Comments Menstrual History Last Menstrual Date Menses Monthly On Bcp Conception Prior Menses Frequency Hcg Plus Date Menarche Onset Age 0410/27/2023 Genetic Screening And Infection History Question Response Note Patient's Age Will Be 35 Years Or Older At Estim ated Date of Delivery false Thalassemia (Maltese, Tajik, Mediterranean, Or Background): MCV < 80 false Neural Tube Defect (Meningomyelocele, Spina Bifi da, Or Anencephaly) false Congenital Heart Defect false Down Syndrome false Jl-Sachs (eg, Confucianism, Cajun, [place]-Rush) f alse Nate Disease false Sickle Cell Disease Or Trait () false Hemophilia Or Other Blood Disorders false Muscular Dystrophy false Cystic Fibrosis false Bruce's Chorea false Intellectual Disability/Autism false If Yes, Was Person Tested For Fragile X? false Other Inherited Genetic Or Chromosomal Disorder false Maternal Metabolic Disorder (eg, Type 1 Diabetes , PKU) false Patient Or Baby's Father Had A Child With Defects Not Listed Above false Recurrent Loss, Or A Stillbirth false Medications (including Suppl ements, Vitamins, Herbs, OTC Drugs), Illicit/Recreational Drugs, Alcohol false If Yes, Agent(s) And Strength/Dosage false Any Other Genetic History false Live With Someone With TB Or Exposed To TB false Patient Or Partner Has History Of Genital Herpes false Rash Or Viral Illness Since Last Menstrual Perio d false History Of STD, Gonorrhea, Chlamydia, HPV, Syphi lis false Other Infection History false History of HIV false History of Hepatitis false Prior GBS-infected child false Hemoglobinopathy Or Carrier false Other Structural Defect false Recent Travel History Outside of Country false Mental Retardation/Autism false Delivery Information Delivery Date Delivery Type Labor Anesthesia Weeks Gestation Incision Type Labor Labor Length Hrs Delivered By Post Complications Tubal Sterilization Discharge Date Comments 5 39.4 Discharge Information Feeding Method Contraceptive Method Maternal HG B and HCT Levels Ob Episode Information Episode Created Date Number of Fetuses Patient Bloodtype Patient rh Status Prepregnancy Weight lbs Domestic Partner Domestic Partner Phone Father Name Butcher Helper Status 12/19/19 24 1 CLOSED Fetus Data First Name Last Name Admitted to NICU Weight (g) Sex Living Outcome Pediatric Complications Fetus ID Race Codes Race Delivery Type 2863.07 [id number] M Full Term 4661 VAGINAL Gavin Calculation Initial Gavin Date Initial Exam Date Initial Exam Provider Initial Ultrasound Date Last Menstrual Period Date Ultra Sound Weeks Gestation 0 Eighteen To Twenty Week Gavin Update Ultra Sound Date Fundal Height At Umbil Quickening Date Ultra Sound Latest Weeks Gestation Final Gavin Confirmed By Final Gavin Confirmed Date Final Gavin Date Ultra Sound Latest Days Gestation 0 0 Menstrual History Last Menstrual Date Menses Monthly On Bcp Conception Prior Menses Frequency Hcg Plus Date Menarche Onset Age Delivery Information Delivery Date Delivery Type Labor Anesthesia Weeks Gestation Incision Type Labor Labor Length Hrs Delivered By Post Complications Tubal Sterilization Discharge Date Comments 5 39 HTN, induced-K silvino Discharge Information Feeding Method Contraceptive Method Maternal HG B and HCT Levels
[2025-06-07 20:39] VITALS: BP 131/92; PULSE 69; RESP 16; TEMP 36.6; O2SAT 99; BMI 19.7
--- NOTE | 2025-06-07 20:49 | XRR_ITS ---
PROCEDURE INFORMATION: Exam: XR Right Ankle Exam date and time: 06/07/2025 9:11 PM Age: 29 years old Clinical indication: Pain; Ankle; Right; Additional info: Ankle swelling TECHNIQUE: Imaging protocol: Radiologic exam of the right ankle. Views: 3 or more views. COMPARISON: CR XR ankle RT 2V [id number] 11/30/2019 2:02 PM FINDINGS: Bones/joints: Normal. Soft tissues: Normal. XR/XR ankle RT min 3V* [id number] IMPRESSION: No acute findings.
--- NOTE | 2025-06-07 21:13 | XRR_ITS ---
PROCEDURE INFORMATION: Exam: XR Right Foot Exam date and time: 06/07/2025 9:11 PM Age: 29 years old Clinical indication: Pain; Foot; Right; Additional info: Foot pain TECHNIQUE: Imaging protocol: Radiologic exam of the right foot. Views: 3 or more views. COMPARISON: CR XR foot RT min 3V* [id number] 02/07/2023 3:41 PM FINDINGS: Bones/joints: Normal. Soft tissues: Normal. XR/XR foot RT min 3V* [id number] IMPRESSION: No acute findings.
--- NOTE | 2025-06-07 21:34 | W.ED.EXTPRO ---
HPI - Extremity Problem General: Chief complaint: Extremity Injury, Lower Stated complaint: Rt Ankle Pain Time Seen by Provider: 06/07/25 21:01 History of Present Illness: Patient is an adult who presents with right ankle pain and swelling that began approximately 2 weeks ago. The patient reports running regularly (about 1.5 miles) with 5-pound ankle weights, which they believe may have contributed to the condition. The pain initially started in the leg and gradually progressed with swelling developing in the ankle region. Patient notes a visible indentation when removing socks and describes a palpable knot in the affected area. The pain is not constant with every step but worsens after prolonged walking or activity, particularly noticeable when resting at the end of the day. Patient has attempted to have spouse manipulate the ankle for relief, which provides temporary improvement but ultimately increases pain afterward. The swelling pattern varies throughout the day with no consistent improvement in the morning. Patient denies any specific traumatic injury, stating they are careful to avoid holes or hazards while running. They have discontinued use of the ankle weights since noticing the symptoms but reports the swelling persists despite this change and complete cessation of jogging this week. Related Data Home Medications ?Medication ?Instructions ?Recorded ?Confirmed sumatriptan succinate 25 mg tablet 25 mg PO PRN PRN Headache 12/25/24 03/27/25 Previous Rx's ?Medication ?Instructions ?Recorded ibuprofen 800 mg tablet 800 mg PO TID #45 tabs 07/31/24 vits no.130-ferrous fum 1 tab PO DAILY #90 tabs 07/31/24 27 mg iron-folic acid 800 mcg tablet ( Vitamin) meclizine 25 mg tablet 25 mg PO TID PRN dizziness #20 tabs 12/25/24 nitrofurantoin 100 mg PO Q12H 5 days #10 caps 03/27/25 monohydrate/macrocrystals 100 mg capsule (Macrobid) ondansetron 4 mg disintegrating 4 mg PO Q8H PRN nausea and 03/27/25 tablet vomiting #14 tabs methylprednisolone 4 mg tablets in See Rx Instructions PO .COMPLEX 06/07/25 a dose pack (Medrol ([place])) #21 ea Allergies Allergy/AdvReac Type Severity Reaction Status Date / Time azithromycin (From Zithromax) Allergy ADR-Vomitin Verified 03/27/25 17:00 g clavulanic acid (From Allergy ADR-Vomitin Verified 03/27/25 17:00 Augmentin) g metronidazole (From Flagyl) Allergy ALGY-Hives Verified 03/27/25 17:00 [facility] PFSH: Medical History No significant past medical history Surgical History H/O oral surgery Social History Smoking and tobacco/nicotine status: never used tobacco/nicotine Physical Exam Const: COMMON NORMALS: no acute distress GENERAL APPEARANCE: cooperative; not ill appearing and not frail appearing HENMT: COMMON NORMALS: normocephalic, atraumatic and Normal external nose present HEAD & SCALP: normocephalic and atraumatic FACE & SINUS: normal facial exam and face symmetric NOSE: Normal external nose present Eye: COMMON NORMALS: Equal, round and reactive pupils present and EOMs intact bilaterally PUPIL: Yes Equal, round and reactive pupils present Neck/C-Spine: GENERAL: Yes trachea midline Chest: CHEST: Yes Symmetrical chest wall rise Resp: COMMON NORMALS: normal respiratory effort, No retractions and No use of accessory muscles Cardio: COMMON NORMALS: regular rate and regular rhythm RATE: regular rate RHYTHM: regular rhythm GI: COMMON NORMALS: Normal to inspection, nondistended, normoactive bowel sounds present Extremity: NARRATIVE EXTREMITY EXAM: Examination of right lower extremity reveals minimal swelling over the right lateral ankle. There is tenderness over the lateral subtalar joint. There is no distal fibular tenderness. There is some mild midfoot tenderness. No deformity. Sensation is intact to touch distally. There is no redness or heat. Pulses are normal. Neuro: ADAMA COMA SCALE: document GCS findings Adama coma scale eye opening: Spontaneous [place] coma scale verbal response: Orientated [place] coma scale motor response: Obey commands Adama coma scale total score: 15 SENSORY EXAM: Yes extremities (intact) Psych: COMMON NORMALS: speech normal SPEECH: Yes normal speech Skin: COMMON NORMALS: no rashes or lesions noted GENERAL SKIN EXAM: no rashes or lesions noted Course Vital Signs: Vital signs: Vital Signs Temperature 97.9 F 06/07/25 20:39 Pulse Rate 69 06/07/25 20:39 Respiratory Rate 16 06/07/25 20:39 Blood Pressure 131/92 06/07/25 20:39 Pulse Oximetry 99 06/07/25 20:39 MDM - Extremity (Nontraumatic) Medical Decision Making X-rays are negative for fracture. No significant joint effusions. Short course of steroids. Follow-up as an outpatient. Lab Data Radiology Impressions Ankle X-Ray 06/07/25 20:49 IMPRESSION: No acute findings. Foot X-Ray 06/07/25 21:13 IMPRESSION: No acute findings. All radiology interpretation(s) finalized by discharge Discharge Plan Discharge Patient Disposition: Home Clinical Impression: Acute right ankle pain, Sinus tarsi syndrome Condition: Stable Prescriptions: New methylprednisolone [Medrol ([place])] 4 mg tablets,dose pack See Rx Instructions .ROUTE .COMPLEX Qty: 21 0RF Rx Instructions: orally per package directions No Action ondansetron 4 mg tablet,disintegrating 4 mg PO Q8H PRN (Reason: nausea and vomiting) Qty: 14 0RF nitrofurantoin monohyd/m-cryst [Macrobid] 100 mg capsule 100 mg PO Q12H 5 Days Qty: 10 0RF Rx Instructions: must administer with a meal/food ibuprofen 800 mg Tablet 800 mg PO TID Qty: 45 0RF Vitamin 27 mg iron- 800 mcg Tablet 1 tab PO DAILY Qty: 90 0RF sumatriptan succinate 25 mg tablet 25 mg PO PRN PRN (Reason: Headache) meclizine 25 mg tablet 25 mg PO TID PRN (Reason: dizziness) Qty: 20 0RF Discharge Orders: Discharge ED (Routine); Ordered 06/07/25 Ordered By: Johnathon Ann Referrals: Martinez Chavarria DPM [Physician, Podiatry] - 4-[address] MD [Primary Care Provider, Family Practice] - 4-7 days Patient Instructions: Arthralgia (ED), Opioid Safety, Pain Management, Patient Portal & Jorge Instructions Activity Restrictions/Additional Instructions: Return for fever, increasing swelling despite treatment, redness, warmth, any other concerning symptoms. Wear supportive shoes. Do not run until symptoms resolved. Follow-up with podiatry as above. Print Language: Slovenian Coding Level of Care Code ED Quad Stayer for Kevin Parra
== END 2025-06-07 21:55 | disposition home or self-care (01) ==
PROVIDERS: Emergency Provider Emergency Medicine; PCP Family Medicine
DX: M25.571 Pain in right ankle and joints of right foot (principal)
CPT/HCPCS: 73610; 73630; 99283

== ENCOUNTER 2025-07-09 14:51 | Emergency (ER) | payer BC, MEDICAID, SELFPAY ==
[2025-07-09 14:55] VITALS: BP 105/67; PULSE 87; RESP 14; TEMP 36.7; O2SAT 98; BMI 18.3
--- OUTSIDE RECORDS SUMMARY | 2025-07-09 15:19 | XMS_ITS | Data Portability ---
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 Dialysis Refused 133.576135021484 BP Diastolic BP Location Tested BP Systolic [...] Type Weight in lbs Pre/Post Dialysis Refused 136.023431470098 BP Diastolic BP Location Tested BP Systolic [...] Type Weight in lbs Pre/Post Dialysis Refused 143.71105228136 BP Diastolic BP Location Tested BP Systolic [...] Movement Comments order for RhoGam sent to [facility] Flowsheet Date 05/13/2024 Barrios Score Blood Edema Fundus Height Fundus Units Glucose Ketones Leukocytes Nitrite Labor Signs Protein Cervic Dilation Cervic Effacement Cervic Station 28 cm Type Weight in lbs Pre/Post Dialysis Refused 150.259165893390 BP Diastolic BP Location Tested BP Systolic BP Type 60 110 sitting Fetus Heart Rate Present A 156 Present Fetus Movement A Yes Comments nausea, constipation, dizzin ess, headaches,sob, heartburn, vaginal pressure after intercourse, pt declines glucose screen, pt did receive her Rhogam at [facility] Flowsheet Date 05/26/2024 Barrios Score Blood [...] Weight in lbs Pre/Post Dialysis Refused Weight 155.64505277218 BP Diastolic BP Location Tested BP Systolic [...] Weight in lbs Pre/Post Dialysis Refused Weight 158.893294169848 BP Diastolic BP Location Tested BP Systolic [...] Dilation Cervic Effacement Cervic Station none 1+ Brooke Lott trace Type Weight in lbs Pre/Post Dialysis Refused Weight 162.435165091070 BP Diastolic BP Location Tested BP Systolic [...] Effacement Cervic Station 36 cm none 1+ Brooke Lott trace Type Weight in lbs Pre/Post Dialysis Refused Weight 163.293909270537 BP Diastolic BP Location Tested BP Systolic [...] Cervic Station 37 cm none trace Negative Brooke Lott trace 3cm 50% -3 Type Weight in lbs Pre/Post Dialysis Refused 169.450966414597 BP Diastolic BP Location Tested BP Systolic [...] Weight in lbs Pre/Post Dialysis Refused Weight 168.311693561143 BP Diastolic BP Location Tested BP Systolic BP Type 76 124 Fetus Heart Rate Present A 144 Fetus Movement A Yes Comments headaches, vaginal pressure, heartburn, cramps, pelvic pain Flowsheet Date 07/29/2024 Barrios Score Blood Edema Fundus Height Fundus Units Glucose Ketones Leukocytes Nitrite Labor Signs Protein Cervic Dilation Cervic Effacement Cervic Station none trace Negative Shreyas Lott trace 4cm 60% -3 Type Weight in lbs Pre/Post Dialysis Refused Weight 169.597246194559 BP Diastolic BP Location Tested BP Systolic [...] Weight in lbs Pre/Post Dialysis Refused Weight 157.395055043121 BP Diastolic BP Location Tested BP Systolic BP Type 74 120 sitting Fetus Heart Rate Present Fetus Movement Comments Menstrual History Last Menstrual Date Menses Monthly On Bcp Conception Prior Menses Frequency Hcg Plus Date Menarche Onset Age 0410/27/2023 Genetic Screening And Infection History Question Response Note Patient's Age Will Be 35 Years Or Older At Estim ated Date of Delivery false Thalassemia (Kazakh, Lao, Mediterranean, Or Background): MCV < 80 false Neural Tube Defect (Meningomyelocele, Spina Bifi da, Or Anencephaly) false Congenital Heart Defect false Down Syndrome false Jl-Sachs (eg, Yazdanism, Cajun, Tajik-Tioga) f alse Nate Disease false Sickle Cell Disease Or Trait () false Hemophilia Or Other Blood Disorders false Muscular Dystrophy false Cystic Fibrosis false Katelin's Chorea false Intellectual Disability/Autism false If Yes, [...] Domestic Partner Domestic Partner Phone Father Name Pasteurizer Status 12/19/19 24 1 CLOSED Fetus Data [...]
[2025-07-09 17:16] VITALS: BP 150/70; PULSE 100; RESP 13; O2SAT 100
--- NOTE | 2025-07-09 17:17 | PC.NURSE ---
pt reports hx of migraine usually controlled by sumatripan this time the medication was ineffective, pt does not currently have a neuro doctor
--- NOTE | 2025-07-09 17:35 | ED_ITS ---
HPI - Head Injury General: Chief complaint: Head Injury Stated complaint: headache (5days) Time Seen by Provider: 07/09/25 17:07 History of Present Illness: Patient is 30-year-old female with chronic migraines, presents to the emergency room with 5 days of waxing and waning symptoms of headache. This is in her right posterior occipital area. She does have photophobia, and photophobia. She has tried home self-care of sumatriptan, ibuprofen. Patient states she gets marginal relief and then has a headache again. She has some nausea without emesis. She states the noises are really rough with her [id number] at home when he is loud. Associated symptoms: Reports nausea; Deny confusion, neck pain, vertigo or vomiting Related Data Home Medications ?Medication ?Instructions ?Recorded ?Confirmed sumatriptan succinate 25 mg tablet 25 mg PO PRN PRN He adache 12/25/24 03/27/25 Previous Rx's ?Medication ?Instructions ?Recorded ibuprofen 800 mg tablet 800 mg PO TID #45 tabs 07/31 vits no.130-ferrous fum 1 tab PO DAILY #90 ta bs 07/31/24 27 mg iron-folic acid 800 mcg tablet ( Vitamin) meclizine 25 mg tablet 25 mg PO TID PRN dizziness # 20 tabs 12/25/24 nitrofurantoin 100 mg PO Q12H 5 days #10 ca ps 03/27/25 monohydrate/macrocrystals 100 mg capsule (Macrobid) ondansetron 4 mg disintegrating 4 mg PO Q8H PRN nausea and 03/27/25 tablet vomiting #14 tabs methylprednisolone 4 mg tablets in See Rx Instructions PO .COMPLEX 06/07/25 a dose pack (Medrol ([place])) #21 ea zlbsxdijxb-khixnokegxbfg-bhmufpsj 2 cap PO Q6H PRN hea dache #30 caps 07/09/25 50 mg-300 mg-40 mg capsule (Fioricet) ondansetron 4 mg disintegrating 4 mg PO Q8H PRN nausea and 07/09/25 tablet vomiting 4 days #14 tabs Allergies Allergy/AdvReac Type Severity Reaction Status Date / Time azithromycin (From Zithromax) Allergy ADR-Vomitin Verified 07/09/25 15:00 g clavulanic acid (From Allergy ADR-Vomitin Verified 07/09/25 15:00 Augmentin) g metronidazole (From Flagyl) Allergy ALGY-Hives Verified 07/09/25 15:00 Review of Systems General: Reports: 10 or more systems reviewed and unremarkable except in HPI and below Const: Denies: fever(s), chills, body aches, fatigue or malaise Eyes: Denies: change in vision, blurry vision, photophobia, floaters or seeing flashes ENMT: Denies: throat pain or odynophagia Card: Denies: chest pain Resp: Denies: dyspnea GI: Reports: nausea; Denies: abdominal pain or vomiting : Denies: flank pain or difficulty voiding Musc: Denies: neck pain or joint pain Skin/Breast: Denies: rash or pruritus Neuro: Reports: headache(s); Denies: numbness in extremities, weakness in extremities, sensory changes, lack of coordination, difficulty walking, frequent falls, dizziness, vertigo, confusion, behavioral changes, Slurred speech present, difficulty communicating thoughts or seizure-like activity Psych: Denies: anxiety or depression PFSH ED PFSH: Medical History (Updated 07/09/25 @ 18:27 by RYANN Adler) No significant past medical history Surgical History H/O oral surgery Social History Smoking and tobacco/nicotine status: never used tobacco/nicotine Physical Exam Const: COMMON NORMALS: no acute distress GENERAL APPEARANCE: cooperative; not ill appearing and not frail appearing HENMT: COMMON NORMALS: normocephalic, atraumatic and Normal external nose present HEAD & SCALP: normocephalic and atraumatic FACE & SINUS: normal facial exam and face symmetric NOSE: Normal external nose present TYMPANIC MEMBRANE: TM abnormal TM laterality: right Details: fluid behind TM Eye: COMMON NORMALS: Equal, round and reactive pupils present and EOMs intact bilaterally PUPIL: Yes Equal, round and reactive pupils present Neck/C-Spine: GENERAL: Yes trachea midline Chest: CHEST: Yes Symmetrical chest wall rise Resp: COMMON NORMALS: normal respiratory effort, No retractions and No use of accessory muscles Cardio: COMMON NORMALS: regular rate and regular rhythm RATE: regular rate RHYTHM: regular rhythm GI: COMMON NORMALS: Normal to inspection, nondistended, normoactive bowel sounds present : COMMON NORMALS: Yes no CVA tenderness and Yes normal external appearance BLADDER/KIDNEY EXAM: Yes no CVA tenderness Back/Pelvis: COMMON NORMALS: no CVA tenderness and thoracic and lumbar spine normal to inspection Extremity: COMMON NORMALS: normal to inspection, full ROM and capillary refill normal Psych: COMMON NORMALS: speech normal SPEECH: Yes normal speech Skin: COMMON NORMALS: no rashes or lesions noted GENERAL SKIN EXAM: no rashes or lesions noted Course Reevaluation(s): Reevaluation #1: Improved after IM shots. Patient refused Compazine Vital Signs: Vital signs: Vital Signs Temperature 98.0 F 07/09/25 14:55 Pulse Rate 100 07/09/25 17:16 Respiratory Rate 13 07/09/25 17:16 Blood Pressure 150/70 07/09/25 17:16 Pulse Oximetry 100 07/09/25 17:16 Oxygen Delivery Me thod Room Air 07/09/25 17:16 MDM - Head Injury Medcial Decision Making Patient is a pleasant 30-year-old female that presents to the emergency room with ongoing migrainous symptoms to her right occipital area posterior for the last 5 days. She has tried multiple home treatments without success. Plan is to see if she gets relief after Compazine, dexamethasone, Toradol, Norflex. No other red flags. Patient has been here before with headache, however it has been sometime. Patient states same as previous, however just ongoing with waxing and waning symptoms. Discussed with patient if she has a breakthrough, and has continued to return, consider coming back for expanding workup. Medical Records I reviewed the patient's medical records. Lab Data I reviewed the patient's lab results. No radiology studies performed this visit Discharge Plan Discharge Patient Disposition: Home Clinical Impression: Migraine headache with aura Qualifiers: Status migrainosus presence: with status migrainosus Intractability: not intractable Qualified Code(s): G43.101 - Migraine with aura, not intractable, with status migrainosus Condition: Stable Prescriptions: New zpedgeaduy-lifukyxijaiqc-mtje [Fioricet] 50-300-40 mg capsule 2 cap PO Q6H PRN (Reason: headache) Qty: 30 0RF ondansetron 4 mg tablet,disintegrating 4 mg PO Q8H PRN (Reason: nausea and vomiting) 4 Days Qty: 14 0RF No Action ondansetron 4 mg tablet,disintegrating 4 mg PO Q8H PRN (Reason: nausea and vomiting) Qty: 14 0RF nitrofurantoin monohyd/m-cryst [Macrobid] 100 mg capsule 100 mg PO Q12H 5 Days Qty: 10 0RF Rx Instructions: must administer with a meal/food ibuprofen 800 mg Tablet 800 mg PO TID Qty: 45 0RF Vitamin 27 mg iron- 800 mcg Tablet 1 tab PO DAILY Qty: 90 0RF methylprednisolone [Medrol ([place])] 4 mg tablets,dose pack See Rx Instructions .ROUTE .COMPLEX Qty: 21 0RF Rx Instructions: orally per package directions sumatriptan succinate 25 mg tablet 25 mg PO PRN PRN (Reason: Headache) meclizine 25 mg tablet 25 mg PO TID PRN (Reason: dizziness) Qty: 20 0RF Discharge Orders: Discharge ED (Routine); Ordered 07/09/25 Ordered By: Leatha Bass Referrals: Darin Lane MD [Primary Care Provider, Family Practice] Discharge Diet: Usual diet Patient Instructions: Migraine Headache (ED), Patient Portal & Jorge Instructions Activity Restrictions/Additional Instructions: - Printed prescription: Fioricet. This will help with headache. It will not interfere with your other medications. - At the pharmacy: [facility] -We discussed you picking up a long-acting antihistamine: My choice is Xyzal /levocetirizine, there is also Zyrtec, Claritin, Ariana available. - Return to ED if you have ongoing symptoms that come back, and we need to expand the workup. Thank you for choosing [facility] for your healthcare needs today. You have been screened and evaluated and felt safe for discharge. Health conditions do change or evolve sometimes and as such it is important that you follow up with your Primary Doctor to be re checked, 3-5 days is a general good time frame for follow up. You are always welcome to return to the ED for re assessment if your symptoms are worsening or you have new concerns Print Language: Bangladeshi Coding Level of Care Code ED Mechanical Laboratory Technician for Kevin Parra
[2025-07-09] MEDS: orphenadrine 30 mg/mL Inj 2 mL 60 MG IM (18:01)
[2025-07-09 19:32] VITALS: BP 109/81; PULSE 77; RESP 16; O2SAT 100
== END 2025-07-09 19:31 | disposition home or self-care (01) ==
PROVIDERS: Emergency Provider Physician Assistant; PCP Family Medicine
DX: G43.101 Migraine with aura, not intractable, with status migrainosus (principal)
CPT/HCPCS: 96372; 99284; J0780; J1100; J1885; J2360

== ENCOUNTER 2025-07-13 08:42 | Emergency (ER) | payer BC, MEDICAID, SELFPAY ==
[2025-07-13 09:02] VITALS: BP 96/63; PULSE 87; RESP 16; TEMP 36.8; O2SAT 100; BMI 18.6
--- NOTE | 2025-07-13 09:06 | ED_ITS ---
HPI - Nausea/Vomiting/Diarrhea 2 General: Chief complaint: Nausea/Vomiting/Diarrhea Stated complaint: n/v Time Seen by Provider: 07/13/25 09:01 Source: patient and family Mode of arrival: ambulatory Limitations: no limitations History of Present Illness: Patient is a 30-year-old female who presents to the ED today along with her mother for evaluation of nausea and vomiting that began around 2 AM this morning. Patient is complaining of intermittent, waxing/waning diffuse/crampy abdominal pains. She has not had any diarrhea. No fevers. No poor food exposures. She does note her son was sick with nausea, vomiting, diarrhea about 24 hours ago but this has since subsided. No hematemesis. She does habitually use marijuana. MD elicited complaint: nausea, vomiting and abdominal pain Associated nausea: Yes Associated abdominal pain: Yes Location of pain: Diffuse Radiation: diffuse Pain consistency: intermittent Severity: moderate Quality: cramping Exacerbating factors: eating Relieving factors: none Context: sick contacts (son sick with similar symptoms 1-2 days ago) Associated symtoms: Reports nausea; Denies chest pain, dizziness, dysuria, fatigue, headache(s) or malaise Related Data Home Medications ?Medication ?Instructions ?Recorded ?Confirmed sumatriptan succinate 25 mg tablet 25 mg PO PRN PRN He adache 12/25/24 07/13/25 Previous Rx's ?Medication ?Instructions ?Recorded [id number] 2 cap PO Q6H PRN hea dache #30 caps 07/09/25 50 mg-300 mg-40 mg capsule (Fioricet) ondansetron 4 mg disintegrating 4 mg PO Q8H PRN nausea and 07/13/25 tablet vomiting #14 tabs Allergies Allergy/AdvReac Type Severity Reaction Status Date / Time azithromycin (From Zithromax) Allergy ADR-Vomitin Verified 07/09/25 15:00 g clavulanic acid (From Allergy ADR-Vomitin Verified 07/09/25 15:00 Augmentin) g metronidazole (From Flagyl) Allergy ALGY-Hives Verified 07/09/25 15:00 Review of Systems 2 Const: Denies: fever(s), chills, body aches, fatigue or malaise Card: Denies: chest pain Resp: Denies: dyspnea GI: Reports: abdominal pain, nausea, vomiting and GI cramping; Denies: hematemesis, heartburn, diarrhea, pain on defecation, hematochezia or melena : Denies: flank pain, difficulty voiding, dysuria, urinary frequency, urinary urgency or urinary hesitancy Musc: Denies: neck pain, back pain, extremity pain, extremity swelling, joint pain or joint swelling Skin/Breast: Denies: rash Neuro: Denies: headache(s), numbness in extremities, weakness in extremities, sensory changes or dizziness PFSH ED 2 PFSH: Medical History No significant past medical history Surgical History H/O oral surgery Social History Smoking and tobacco/nicotine status: never used tobacco/nicotine Physical Exam 2 Const: COMMON NORMALS: average body habitus, patient oriented x3, no limitations, healthy appearing, alert and well nourished GENERAL APPEARANCE: anxious ORIENTATION/CONSCIOUSNESS: Yes awake, Yes oriented to person, Yes oriented to place and Yes oriented to time HENMT: COMMON NORMALS: normocephalic and atraumatic HEAD & SCALP: normal to inspection, normocephalic and atraumatic FACE & SINUS: normal facial exam and face symmetric Eye: COMMON NORMALS: no scleral icterus GENERAL EYE: appearance normal, both eyes and all related structures Neck/C-Spine: COMMON NORMALS: no lymphadenopathy Resp: COMMON NORMALS: normal respiratory effort and clear to auscultation bilaterally AUSCULTATION: clear to auscultation bilaterally Cardio: COMMON NORMALS: regular rate and regular rhythm RATE: regular rate RHYTHM: regular rhythm GI: COMMON NORMALS: Normal to inspection, nondistended, normoactive bowel sounds present, Soft to palpation, No hepatosplenomegaly present and no masses INSPECTION: Yes normal to inspection AUSCULTATION: Yes normoactive bowel sounds PALPATION: Yes Soft to palpation, Yes Tenderness to palpation present (GI) (diffusely), No Guarding due to palpation present (GI), No Rigid due to palpation and Yes No hepatosplenomegaly present : COMMON NORMALS: Yes no CVA tenderness BLADDER/KIDNEY EXAM: Yes no CVA tenderness Back/Pelvis: COMMON NORMALS: no CVA tenderness, thoracic and lumbar spine normal to inspection and no thoracic nor lumbar tenderness Extremity: GENERAL: Yes normal exam except as noted Neuro: [place] COMA SCALE: document GCS findings [place] coma scale eye opening: Spontaneous [place] coma scale verbal response: Orientated [place] coma scale motor response: Obey commands [place] coma scale total score: 15 COMMON NORMALS: patient oriented x3, moves all extremities, no focal motor deficits and no sensory deficits noted SENSORIUM/ORIENTATION: Yes alert, Yes oriented to person, Yes oriented to place and Yes oriented to time Skin: COMMON NORMALS: no rashes or lesions noted GENERAL SKIN EXAM: no rashes or lesions noted Course 2 Reevaluation(s): Reevaluation #1: Patient reports feeling better after IV fluids and nausea medications. She is holding down water and crackers. Vital Signs: Vital signs: Vital Signs Temperature 98.2 F 07/13/25 09:02 Pulse Rate 84 07/13/25 10:27 Respiratory Rate 18 07/13/25 10:27 Blood Pressure 95/57 07/13/25 10:27 Pulse Oximetry 99 07/13/25 10:27 Oxygen Delivery Me thod Room Air 07/13/25 10:27 MDM - Nausea/Vomiting/Diarrhea Medical Decision Making Patient is a 30-year-old female here for nausea, vomiting, abdominal cramping starting around 2 AM this morning. Son was sick with similar symptoms just a day or 2 ago. She is afebrile. No tachycardia. Blood pressure is soft but this may be normal for her. Blood work overall is unremarkable. No electrolyte derangements. UA is clear. She feels better after IV fluids and antiemetics. She is holding down water and crackers. Will allow discharge with continued antiemetics at home and instructions for continued hydration. Return ED precautions discussed. Differential Diagnosis Likely traveler's diarrhea, food poisoning, gastroenteritis, clostridium difficile infection and dehydration Medical Records I reviewed the patient's medical records. Lab Data I reviewed the patient's lab results. 07/13/25 09:28 07/13/25 09:28 Laboratory Results WBC 7.99 10^3/uL (3.29-11.43) 07/13/25 09:28 RBC 5.11 10^6/uL (3.85-5.65) 07/13/25 09:28 Hgb 15.70 g/dL (11.27-16.99) 07/13/25: Hct 46.8 % (36-47) 07/13/25: MCV 91.6 fl (85-98) 07/13/25: MCH 30.7 pg (27-33) 07/13/25: MCHC 33.5 g/dL (30-55) 07/13/25: RDW 12.8 % (12.1-15.1) 07/13/25: Plt Count 137 10^3/cmm (157-399) L 07/13/25: MPV 12.9 fL (7.4-10.4) H 07/13/25: Neut % (Auto) 90.5 % 07/13/25: Lymph % (Auto) 4.8 % 07/13/25: [place] % (Auto) 4.0 % 07/13/25: Eos % (Auto) 0.3 % 07/13/25: Baso % (Auto) 0.1 % 07/13/25: Neut # (Auto) 7.24 10^3/uL (1.8-7.7) 07/13/25: Lymph # (Auto) 0.4 10^3/uL (0.8-4.8) L 07/13/25: [place] # (Auto) 0.3 10^3/uL (0.2-0.9) 07/13/25: Eos # (Auto) 0.0 10^3/uL (0.0-0.8) 07/13/25: Baso # (Auto) 0.0 10^3/uL (0.0-0.1) 07/13/25: Nucleated RBC % (auto) 0 % 07/13/25: Nucleated RBCs # 0.0 /100WBC 07/13/25: Sodium 138 mmol/L (136-145) 07/13/25: Potassium 3.8 mmol/L (3.5-5.1) 07/13/25: Chloride 103 mmol/L (98-107) 07/13/25 09:28 Carbon Dioxide 20 mmol/L (22-29) L 07/13/25 09:28 Anion Gap 18.8 (5-19) 07/13/25 09: BUN 18 mg/dL (6-20) 07/13/25 09: Creatinine 0.8 mg/dL (0.5-0.9) 07/13/25 09:28 GFR Calculation 84.2 mL/min (90-130) L 07/13/25 09: Glucose 108 mg/dL (65-115) 07/13/25 09:28 Calculated Osmolality 288 mOsm/kg (285-295) 07/13/25 09: Calcium 10.0 mg/dL (8.5-10.5) 07/13/25 09: Total Bilirubin 0.8 mg/dL (0.15-1.2) 07/13/25 09: AST 18 U/L (0-32) 07/13/25: ALT 15 U/L (0-33) 07/13/25 09: Alkaline Phosphatase 49 U/L (35-105) 07/13/25 09:28 Total Protein 7.2 g/dL (6.6-8.7) 07/13/25 09: Albumin 4.8 g/dL (3.5-5.2) 07/13/25 09: Globulin 2.4 g/dL (1.3-4.6) 07/13/25 09: Lipase 37 U/L (13-60) 07/13/25 09:28 HCG, Qual Negative (Negative) 07/13/25 09:28 Urine Color Yellow (Yellow) 07/13/25 10:08 Urine Appearance Clear (CLEAR) 07/13/25 10:08 Urine pH >=9.0 (5-7) A 07/13/25 10:08 Ur Specific [place] 1.020 (1.005-1.030) 07/13/25 10:08 Urine Protein Trace (Negative) A 07/13/25 10:08 Urine Glucose (UA) Negative (Normal) 07/13/25 10:08 Urine Ketones 1+ (Negative) H 07/13/25 10:08 Urine Blood Negative (Negative) 07/13/25 10:08 Urine Nitrate Negative (Negative) 07/13/25 10:08 Urine Bilirubin Negative (Negative) 07/13/25 10:08 Urine Urobilinogen 1.0 mg/dL (Negative) 07/13/25 10:08 Ur Leukocyte Esterase Negative (Negative) 07/13/25 10:08 Urine RBC 0-2 /hpf (0-2) 07/13/25 10:08 Urine WBC 0-5 /hpf (0-5) 07/13/25 10:08 Ur Squamous Epith Cells 0-5 /hpf (0-5) 07/13/25 10:08 Amorphous Sediment Not Reportable 07/13/25 10:08 Urine Bacteria None seen /hpf (NONE) 07/13/25 10:08 Hyaline Casts 0.40 /lpf 07/13/25 10:08 No radiology studies performed this visit Discharge Plan Discharge Patient Disposition: Home Clinical Impression: Gastroenteritis Condition: Stable Prescriptions: Continued ondansetron 4 mg tablet,disintegrating 4 mg PO Q8H PRN (Reason: nausea and vomiting) Qty: 14 0RF No Action sumatriptan succinate 25 mg tablet 25 mg PO PRN PRN (Reason: Headache) [id number] [Fioricet] 50-300-40 mg capsule 2 cap PO Q6H PRN (Reason: headache) Qty: 30 0RF Discharge Orders: Discharge ED (Routine); Ordered 07/13/25 Ordered By: Mary Hernandez Referrals: Darin Lane MD [Primary Care Provider, Family Practice] Patient Instructions: Gastroenteritis (DC), Patient Portal & Jorge Instructions Print Language: Jamaican Coding Level of Care Code ED Crib Attendant for Reyg Aida
[2025-07-13 09:42] LABS: Hematocrit 46.8 % (36-47); Hemoglobin 15.70 g/dL (11.27-16.99); Mean Corpuscular HGB Conc 33.5 g/dL (30-55); Mean Corpuscular Hemoglobin 30.7 pg (27-33); Mean Corpuscular Volume 91.6 fl (85-98); Nucleated Red Blood Cells % 0 %; Platelet Count 137 10^3/cmm (157-399); Red Blood Count 5.11 10^6/uL (3.85-5.65); White Blood Count 7.99 10^3/uL (3.29-11.43)
[2025-07-13] MEDS: LORazepam 2 mg/mL INJ 1 mL 1 MG IVP (09:48)
[2025-07-13] MEDS: ondansetron 2 mg/ML SDV 2 mL 4 MG IVP (09:48)
[2025-07-13 09:55] LABS: HCG, Serum Qual Negative (Negative)
[2025-07-13 10:02] LABS: Alanine Aminotransferase 15 U/L (0-33); Albumin Level 4.8 g/dL (3.5-5.2); Alkaline Phosphatase 49 U/L (35-105); Anion Gap 18.8 (5-19); Aspartate Amino Transferase 18 U/L (0-32); Blood Urea Nitrogen 18 mg/dL (6-20); Calcium 10.0 mg/dL (8.5-10.5); Carbon Dioxide 20 mmol/L (22-29); Chloride 103 mmol/L (98-107); Globulin 2.4 g/dL (1.3-4.6); Glucose 108 mg/dL (65-115); Lipase 37 U/L (13-60); Osmolality Calculated 288 mOsm/kg (285-295); Potassium 3.8 mmol/L (3.5-5.1); Sodium 138 mmol/L (136-145); Total Protein 7.2 g/dL (6.6-8.7)
[2025-07-13 10:15] LABS: Glucose Urine UA Negative (Normal); Nitrate Urine Negative (Negative); Specific Gravity, Urine 1.020 (1.005-1.030)
[2025-07-13 10:20] LABS: Add Urine Microscopic? YES
[2025-07-13 10:27] VITALS: BP 95/57; PULSE 84; RESP 18; O2SAT 99
== END 2025-07-13 11:32 | disposition home or self-care (01) ==
PROVIDERS: Emergency Provider Physician Assistant; PCP Family Medicine
DX: K52.9 Noninfective gastroenteritis and colitis, unspecified (principal)
CPT/HCPCS: 80053; 81001; 83690; 84703; 85025; 96361; 96374; 96375; 99284; J2060; J2405; J7030; J9999

== ENCOUNTER 2025-07-15 09:06 | Emergency (ER) | payer BC, MEDICAID, SELFPAY ==
--- OUTSIDE RECORDS SUMMARY | 2025-07-15 09:12 | XMS_ITS | Data Portability ---
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 BP Diastolic BP Location Tested BP Systolic [...] Weight in lbs Pre/Post Dialysis Refused Weight 168.359479839231 BP Diastolic BP Location Tested BP Systolic [...] Weight in lbs Pre/Post Dialysis Refused Weight 169.936074175108 BP Diastolic BP Location Tested BP Systolic [...] Weight in lbs Pre/Post Dialysis Refused Weight 157.412423180557 BP Diastolic BP Location Tested BP Systolic BP Type 74 120 sitting Fetus Heart Rate Present Fetus Movement Comments Menstrual History Last Menstrual Date Menses Monthly On Bcp Conception Prior Menses Frequency Hcg Plus Date Menarche Onset Age 0410/27/2023 Genetic Screening And Infection History Question Response Note Patient's Age Will Be 35 Years Or Older At Estim ated Date of Delivery false Thalassemia (Telugu, Korean, Mediterranean, Or Background): MCV < 80 false Neural Tube Defect (Meningomyelocele, Spina Bifi da, Or Anencephaly) false Congenital Heart Defect false Down Syndrome false Jl-Sachs (eg, Orthodox, Cajun, Syriac-Bannock) f alse Nate Disease false Sickle Cell [...] Domestic Partner Domestic Partner Phone Father Name 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
[2025-07-15 09:20] VITALS: BP 112/75; PULSE 86; TEMP 36.3; O2SAT 100
--- NOTE | 2025-07-15 09:20 | CT_ITS ---
WS: [id number] CT ABDOMEN AND PELVIS WITH CONTRAST HISTORY: upper abd pain, vomiting x3 days TECHNIQUE: Imaging performed of the abdomen and pelvis with IV contrast. Single phase imaging of the abdomen. Coronal and sagittal reformats are submitted. All CT scans at [facility] use at least one of these dose optimization techniques: automated exposure control; mA and/or kV adjustment per patient size (includes targeted exams where dose is matched to clinical indication); or iterative reconstruction. IV CONTRAST: Omnipaque 350; 100 mL IV. Oral contrast: No DLP: 343.93 mGy.cm COMPARISON: 03/30/2025 Lower thorax: Lung bases are clear. Heart is normal size. No hiatal hernia. Liver/biliary system: Normal size with no intrahepatic dilatation. Gallbladder: Normal. No gallstones or wall thickening. No pericholecystic fluid. Pancreas: Normal size pancreas and pancreatic duct. No adjacent inflammation. Spleen: Normal size spleen. No mass or infarct. Adrenal glands: Normal. Right kidney: Normal size kidney with no obstruction. Cortical hypodensities are stable and probably cysts. Left kidney: Normal. Aorta: Normal. Lymphadenopathy: None. Free fluid: None. GI tract: Stomach is overly distended with fluid and a small amount of air. No small bowel obstruction. Moderate diffuse constipation and fecal retention. No colitis or obstruction. The appendix is not well visualized but there are no secondary findings of appendicitis. Abdominal wall: Unremarkable abdominal wall. No hernia. Pelvis: Normal size anteverted uterus. No free fluid. Bones: Unremarkable. CT/CT abdomen pelvis w con* [id number] IMPRESSION: 1. Stomach is markedly distended with fluid and small amount of air suggesting gastritis. 2. No small bowel obstruction. 3. Marked diffuse constipation. 4. No renal obstruction. 5. No ascites.
--- NOTE | 2025-07-15 09:23 | ED_ITS ---
HPI - Nausea/Vomiting/Diarrhea 2 General: Chief complaint: Nausea/Vomiting/Diarrhea Stated complaint: vomitting Time Seen by Provider: 07/15/25 09:12 Source: patient and old records reviewed Mode of arrival: ambulatory Limitations: no limitations History of Present Illness: Patient is a 30-year-old female presenting to the emergency department complaining of vomiting beginning this morning. This patient was seen and evaluated here in the emergency department on 07/13 for the same symptoms, she had laboratory evaluation at that time that was overall negative and she had reported great improvement following fluids and antiemetics through an IV. States that upon going home she felt better, last night she ate [employer] [address]- through and this morning woke up with the symptoms. Notes to many episodes of vomiting to count just this morning, no vomiting at this time however. She is starting to report worsening abdominal pain that is diffuse and nonspecific. No previous abdominal surgeries reported. She denies frequent marijuana use, denies any other known potential triggers to her vomiting such as any possible food poisoning that she has noticed. She is not endorsing any fevers but is noting subjective chills. Also reporting a headache from all the vomiting she has been doing. She states her abdominal pain is worse when she vomits. She is also stating that she is having bilateral ear pain. No other new symptoms to report, her vitals are stable at this time. MD elicited complaint: nausea, vomiting and abdominal pain Onset (ago): day(s) Description of vomiting: food contents Associated nausea: Yes Associated abdominal pain: Yes Location of pain: Diffuse Associated symtoms: Reports headache(s) and nausea; Denies chest pain, diaphoresis, dizziness, dysuria or palpitations Related Data Home Medications ?Medication ?Instructions ?Recorded ?Confirmed sumatriptan succinate 25 mg tablet 25 mg PO PRN PRN He adache 12/25/24 07/13/25 Previous Rx's ?Medication ?Instructions ?Recorded [id number] 2 cap PO Q6H PRN carmela johnsonhe #30 caps 07/09/25 50 mg-300 mg-40 mg capsule (Fioricet) ondansetron 4 mg disintegrating 4 mg PO Q8H PRN nausea and 07/13/25 tablet vomiting #14 tabs metoclopramide HCl 10 mg tablet 10 mg PO Q6H PRN nause a and 07/15/25 vomiting #20 tabs Allergies Allergy/AdvReac Type Severity Reaction Status Date / Time azithromycin (From Zithromax) Allergy ADR-Vomitin Verified 07/15/25 09:23 g clavulanic acid (From Allergy ADR-Vomitin Verified 07/15/25 09:23 Augmentin) g metronidazole (From Flagyl) Allergy ALGY-Hives Verified 07/15/25 09:23 Review of Systems 2 General: Reports: 10 or more systems reviewed and unremarkable except in HPI and below Const: Reports: chills; Denies: fever(s), change in appetite, change in weight or diaphoresis ENMT: Reports: ear or mastoid pain; Denies: throat pain or hoarseness Card: Denies: chest pain, palpitations or lightheadedness Resp: Denies: dyspnea, productive cough or wheezing GI: Reports: abdominal pain, nausea and vomiting; Denies: hematemesis, diarrhea or constipation : Denies: flank pain, difficulty voiding, dysuria, urinary frequency or urinary urgency Musc: Denies: neck pain or back pain Skin/Breast: Denies: rash or new lesions Neuro: Reports: headache(s); Denies: dizziness PFSH ED 2 PFSH: Medical History No significant past medical history Surgical History H/O oral surgery Social History Smoking and tobacco/nicotine status: never used tobacco/nicotine Physical Exam 2 Const: COMMON NORMALS: patient oriented x3, no limitations, alert and well nourished GENERAL APPEARANCE: cooperative ORIENTATION/CONSCIOUSNESS: Yes awake OTHER: Anxious, but nontoxic Neck/C-Spine: COMMON NORMALS: full ROM, supple and no meningeal signs Resp: COMMON NORMALS: normal respiratory effort, No retractions, No use of accessory muscles and clear to auscultation bilaterally AUSCULTATION: clear to auscultation bilaterally, no crackles, no rales, no rhonchi and no wheezes Cardio: COMMON NORMALS: regular rate, regular rhythm, No gallops present (Cardio), No clicks present (Cardio), No murmurs present (Cardio) and No rub (Cardio) RATE: regular rate RHYTHM: regular rhythm GI: COMMON NORMALS: Soft to palpation, No hepatosplenomegaly present and no masses AUSCULTATION: Yes normoactive bowel sounds PALPATION: Yes Soft to palpation, No Guarding due to palpation present (GI), No Rigid due to palpation and Yes No hepatosplenomegaly present RECTAL EXAM: deferred OTHER: Diffuse abdominal tenderness to palpation Extremity: COMMON NORMALS: normal to inspection and full ROM Neuro: COMMON NORMALS: patient oriented x3, moves all extremities, no focal motor deficits and no sensory deficits noted SENSORIUM/ORIENTATION: Yes alert MENINGEAL SIGNS: Yes no meningeal signs Psych: COMMON NORMALS: mental status grossly normal, cooperative and speech normal SPEECH: Yes normal speech Skin: COMMON NORMALS: no rashes or lesions noted GENERAL SKIN EXAM: no rashes or lesions noted Course 2 Vital Signs: Vital signs: Vital Signs Temperature 97.4 F L 07/15/25 09:20 Pulse Rate 85 07/15/25 10:01 Blood Pressure 119/67 07/15/25 10:01 Pulse Oximetry 99 07/15/25 10:01 Oxygen Delivery Me thod Room Air 07/15/25 10:01 MDM - Nausea/Vomiting/Diarrhea Medical Decision Making Patient presented for sudden onset nausea vomiting this morning, was seen here few days ago for same symptoms that had ameliorated in the emergency department at that time, states that her appetite had caught up with her and she had a large [employer] drive-through meal last night and then woke up with the symptoms. Diffusely tender to palpation with her abdomen on exam, nontoxic-appearing and has not had any nausea or vomiting here in the ED. Vital stable. Lab work is ordered and all unchanged from labs ordered a few days ago. No electrolyte derangements no leukocytosis. For the tenderness to palpation is CT abdomen pelvis ordered and negative for any acute findings. She has relief of symptoms from fluids and Reglan here in the ED, suspect that this is gastroenteritis again, likely dietary related but could also be viral in etiology but less likely due to her relief of symptoms in the interim. Told her to advance her diet very slowly and start with a bland diet, will prescribe the Reglan to continue treating her nausea at home as she states the Zofran she was prescribed did not help, overall she is stable for discharge home as there is no significant signs of dehydration, electrolyte derangements, or acute abdomen. Patient agrees with this discharge plan at this time, appearing much more comfortable than when she arrived. Lab Data 07/15/25 09:26 07/15/25 09:26 Radiology Impressions Abdomen/Pelvis CT 07/15/25 09:20 IMPRESSION: 1. Stomach is markedly distended with fluid and small amount of air suggesting gastritis. 2. No small bowel obstruction. 3. Marked diffuse constipation. 4. No renal obstruction. 5. No ascites. Laboratory Results WBC 3.68 10^3/uL (3.29-11.43) 07/15/25 09:26 RBC 4.66 10^6/uL (3.85-5.65) 07/15/25 09:26 Hgb 14.50 g/dL (11.27-16.99) 07/15/25 09:26 Hct 43.5 % (36-47) 07/15/25 09:26 MCV 93.3 fl (85-98) 07/15/25 09: MCH 31.1 pg (27-33) 07/15/25 09: MCHC 33.3 g/dL (30-55) 07/15/25 09:26 RDW 13.1 % (12.1-15.1) 07/15/25 09: Plt Count 122 10^3/cmm (157-399) L 07/15/25 09:26 MPV 13.1 fL (7.4-10.4) H 07/15/25 09:26 Neut % (Auto) 71.8 % 07/15/25 09:26 Lymph % (Auto) 16.8 % 07/15/25 09:26 [place] % (Auto) 8.2 % 07/15/25 09:26 Eos % (Auto) 2.4 % 07/15/25 09:26 Baso % (Auto) 0.5 % 07/15/25 09:26 Neut # (Auto) 2.64 10^3/uL (1.8-7.7) 07/15/25 09:26 Lymph # (Auto) 0.6 10^3/uL (0.8-4.8) L 07/15/25 09:26 Loving # (Auto) 0.3 10^3/uL (0.2-0.9) 07/15/25 09:26 Eos # (Auto) 0.1 10^3/uL (0.0-0.8) 07/15/25 09:26 Baso # (Auto) 0.0 10^3/uL (0.0-0.1) 07/15/25 09:26 Nucleated RBC % (auto) 0 % 07/15/25 09: Nucleated RBCs # 0.0 /100WBC 07/15/25 09:26 Sodium 143 mmol/L (136-145) 07/15/25 09:26 Potassium 3.6 mmol/L (3.5-5.1) 07/15/25 09:26 Chloride 106 mmol/L (98-107) 07/15/25 09:26 Carbon Dioxide 25 mmol/L (22-29) 07/15/25 09:26 Anion Gap 15.6 (5-19) 07/15/25 09:26 BUN 17 mg/dL (6-20) 07/15/25 09:26 Creatinine 0.8 mg/dL (0.5-0.9) 07/15/25 09:26 GFR Calculation 84.2 mL/min (90-130) L 07/15/25 09:26 Glucose 118 mg/dL (65-115) H 07/15/25 09:26 Calculated Osmolality 299 mOsm/kg (285-295) H 07/15/25 09:26 Calcium 9.5 mg/dL (8.5-10.5) 07/15/25 09:26 Total Bilirubin 0.3 mg/dL (0.15-1.2) 07/15/25 09: AST 15 U/L (0-32) 07/15/25 09:26 ALT 13 U/L (0-33) 07/15/25 09:26 Alkaline Phosphatase 45 U/L (35-105) 07/15/25 09:26 Total Protein 6.7 g/dL (6.6-8.7) 07/15/25 09:26 Albumin 4.3 g/dL (3.5-5.2) 07/15/25 09:26 Globulin 2.4 g/dL (1.3-4.6) 07/15/25 09: Lipase 35 U/L (13-60) 07/15/25 09:26 HCG, Qual Negative (Negative) 07/15/25 09:26 Urine Color Yellow (Yellow) 07/15/25 10:40 Urine Appearance Turbid (CLEAR) A 07/15/25 10:40 Urine pH 8.5 (5-7) A 07/15/25 10:40 Ur Specific [place] 1.053 (1.005-1.030) H 07/15/25 10:40 Urine Protein Negative (Negative) 07/15/25 10:40 Urine Glucose (UA) Negative (Normal) 07/15/25 10:40 Urine Ketones Negative (Negative) 07/15/25 10:40 Urine Blood Negative (Negative) 07/15/25 10:40 Urine Nitrate Negative (Negative) 07/15/25 10:40 Urine Bilirubin Negative (Negative) 07/15/25 10:40 Urine Urobilinogen 1.0 mg/dL (Negative) 07/15/25 10:40 Ur Leukocyte Esterase Negative (Negative) 07/15/25 10:40 Urine RBC 0-2 /hpf (0-2) 07/15/25 10:40 Urine WBC 0-5 /hpf (0-5) 07/15/25 10:40 Ur Squamous Epith Cells 0-5 /hpf (0-5) 07/15/25 10:40 Amorphous Sediment Not Reportable 07/15/25 10:40 Urine Bacteria None seen /hpf (NONE) 07/15/25 10:40 Hyaline Casts 0-4 /lpf H 07/15/25 10:40 All radiology interpretation(s) finalized by discharge Discharge Plan Discharge Patient Disposition: Home Clinical Impression: Gastroenteritis Condition: Stable Prescriptions: New metoclopramide HCl 10 mg tablet 10 mg PO Q6H PRN (Reason: nausea and vomiting) Qty: 20 0RF No Action ondansetron 4 mg tablet,disintegrating 4 mg PO Q8H PRN (Reason: nausea and vomiting) Qty: 14 0RF sumatriptan succinate 25 mg tablet 25 mg PO PRN PRN (Reason: Headache) [id number]-pyxcpytlirawh-iddg [Fioricet] 50-300-40 mg capsule 2 cap PO Q6H PRN (Reason: headache) Qty: 30 0RF Discharge Orders: Discharge ED (Routine); Ordered 07/15/25 Ordered By: Martinez Valentine Referrals: Darin Lane MD [Primary Care Provider, Family Practice] Patient Instructions: Patient Portal & Jorge Instructions Activity Restrictions/Additional Instructions: Discharge Instructions: Gastroenteritis Diagnosis: You were treated in the emergency department for gastroenteritis (inflammation of the stomach and intestines). Your symptoms have improved with intravenous fluids and anti-nausea medication. Your lab work was reassuring, and your CT scan showed gastritis with no other concerning findings. Medications: - Metoclopramide (Reglan) 10 mg: Take one tablet by mouth 30 minutes before meals and at bedtime as needed for nausea. Do not take for more than 12 weeks. - Important: This medication can rarely cause involuntary muscle movements. Stop taking it and call your doctor immediately if you develop unusual muscle movements, especially of the face, tongue, or limbs. - This medication may cause drowsiness. Do not drive or operate machinery until you know how it affects you. - Avoid alcohol while taking this medication. Diet Instructions: It is very important to advance your diet slowly. Start with bland foods and gradually return to your normal diet as tolerated. First 24 hours: - Start with clear liquids: water, broth, clear juices, sports drinks (like Pedialyte or Gatorade) - Sip fluids frequently throughout the day - Avoid caffeine and alcohol Next 24-48 hours (if tolerating clear liquids well): - Add bland, xxzf-tv-egedne foods: - Bananas - White rice - Applesauce - [place] or crackers - Plain pasta - Boiled potatoes - Plain chicken (baked or boiled, no skin) Foods to AVOID for the next few days: - Fatty, greasy, or fried foods - Spicy foods - Dairy products (except yogurt, which may be tolerated) - Raw vegetables - Caffeine - Alcohol - Artificial sweeteners Gradually return to your normal diet over 3-5 days as your symptoms continue to improve. Hydration: - Drink plenty of fluids to prevent dehydration - Aim for at least 8-10 glasses of water per day - Oral rehydration solutions (Pedialyte, CeraLyte) are better than plain water if you continue to have diarrhea What to Expect: - Your symptoms should continue to improve over the next few days - You may have mild diarrhea for several days - Fatigue is common and may last up to a week Return to the Emergency Department or Call Your Doctor If: - Severe abdominal pain or pain that is getting worse - Vomiting that prevents you from keeping down liquids - Blood in your vomit or stool - Signs of dehydration: decreased urination, dark urine, dizziness, extreme thirst, dry mouth - Fever over 101?F (38.3?C) - Diarrhea lasting more than 3 days - Symptoms are not improving or are getting worse - Unusual muscle movements or twitching (from medication) Follow-Up: - Follow up with your primary care doctor in 3-5 days if symptoms are not completely resolved - If you do not have a primary care doctor, please establish care with one Prevention: - Wash your hands frequently with soap and water, especially before eating and after using the bathroom - Avoid preparing food for others until 48 hours after your symptoms have completely resolved Stand Alone Forms: Work/School Release Print Language: Swazi Coding Level of Care Code ED Tobacco Stripper for Kevin Parra
[2025-07-15 09:43] LABS: Hematocrit 43.5 % (36-47); Hemoglobin 14.50 g/dL (11.27-16.99); Mean Corpuscular HGB Conc 33.3 g/dL (30-55); Mean Corpuscular Hemoglobin 31.1 pg (27-33); Mean Corpuscular Volume 93.3 fl (85-98); Nucleated Red Blood Cells % 0 %; Platelet Count 122 10^3/cmm (157-399); Red Blood Count 4.66 10^6/uL (3.85-5.65); White Blood Count 3.68 10^3/uL (3.29-11.43)
[2025-07-15] MEDS: metoclopramide 5 mg/mL SDV 2 mL 10 MG IVP (09:54)
[2025-07-15 09:58] LABS: Alanine Aminotransferase 13 U/L (0-33); Albumin Level 4.3 g/dL (3.5-5.2); Alkaline Phosphatase 45 U/L (35-105); Anion Gap 15.6 (5-19); Aspartate Amino Transferase 15 U/L (0-32); Blood Urea Nitrogen 17 mg/dL (6-20); Calcium 9.5 mg/dL (8.5-10.5); Carbon Dioxide 25 mmol/L (22-29); Chloride 106 mmol/L (98-107); Globulin 2.4 g/dL (1.3-4.6); Glucose 118 mg/dL (65-115); Lipase 35 U/L (13-60); Osmolality Calculated 299 mOsm/kg (285-295); Potassium 3.6 mmol/L (3.5-5.1); Sodium 143 mmol/L (136-145); Total Protein 6.7 g/dL (6.6-8.7)
[2025-07-15 10:01] VITALS: BP 119/67; PULSE 85; O2SAT 99
[2025-07-15 10:14] LABS: HCG, Serum Qual Negative (Negative)
[2025-07-15] MEDS: iohexol 350 mg/mL 500 mL Btl (per mL) IV (10:22)
[2025-07-15 10:55] LABS: Glucose Urine UA Negative (Normal); Nitrate Urine Negative (Negative)
[2025-07-15 11:01] LABS: Add Urine Microscopic? YES
[2025-07-15 11:07] LABS: Specific Gravity, Urine 1.053 (1.005-1.030)
[2025-07-15] MEDS: metoclopramide 5 mg/mL SDV 2 mL IVP (11:38)
[2025-07-15 11:44] VITALS: BP 116/71; PULSE 76; O2SAT 98
== END 2025-07-15 11:45 | disposition home or self-care (01) ==
PROVIDERS: Emergency Provider Physician Assistant; PCP Family Medicine
DX: K52.9 Noninfective gastroenteritis and colitis, unspecified (principal)
CPT/HCPCS: 36415; 74177; 80053; 81001; 83690; 84703; 85025; 96361; 96374; 96375; 99285; J2765; J7030